=== PATIENT | female | born 1960 | race Caucasian/White ===

== ENCOUNTER 2022-07-29 15:30 | Outpatient (OUT) | payer BC, SELFPAY ==
--- NOTE | 2022-07-29 15:51 | XR_ITS ---
The [address] [address] Patient Name: PAOLA MARIANO MRN: [id number] date: 1960 Sex: F Assigned Patient Location: Current Patient Location: Accession/Order Number: [id number] Exam Date: 07/29/2022 15:51 Report Date: 07/30/2022 07:13 At the request of: JEREMIAS HICKMAN Procedure: XR foot LT min 3V PROCEDURE: XR foot LT min 3V HISTORY: LEFT FOOT PAIN ; dorsal foot wound COMPARISON: XR foot left 04/18/2022 FINDINGS: BONES:Mechanical fusion of the medial midfoot extending from the talus to the mid first metatarsal via dorsal plate and screws. Mechanical fusion of the second and third tarsal metatarsal joints via single lag screws. Prior osteotomy and repair of distal first metatarsal. Anterior calcaneal osteotomy and wedge placement. Remote fracture and healing of fifth metatarsal. No evidence of hardware fracture or loosening. SOFT TISSUES:Dorsal and medial soft tissue swelling. EFFUSION:None visible. OTHER: Negative. IMPRESSION: 1. Stable surgical changes without evidence of hardware failure or change in alignment. 2. Dorsal medial soft tissue swelling; stable to slightly increased. Electronically authenticated by: ION SPRING Date: 07/30/2022 07:13
== END 2022-07-29 15:31 ==
LOC: WC 15:30
PROVIDERS: PCP Podiatrist Foot & Ankle Surgery; Visit Provider Podiatrist Foot & Ankle Surgery
DX: M79.672 Pain in left foot (principal); L03.116 Cellulitis of left lower limb; B96.89 Other specified bacterial agents as the cause of diseases classified elsewhere; M24.572 Contracture, left ankle; M19.072 Primary osteoarthritis, left ankle and foot; L76.32 Postprocedural hematoma of skin and subcutaneous tissue following other procedure; M20.12 Hallux valgus (acquired), left foot; T81.30XD Disruption of wound, unspecified, subsequent encounter
CPT/HCPCS: 73630; 99212; G0463

== ENCOUNTER 2022-08-19 08:10 | Outpatient (OUT) | payer BC, SELFPAY ==
--- NOTE | 2022-08-19 08:18 | CT_ITS ---
The [address] [address] Patient Name: PAOLA MARIANO MRN: [id number] date: 1960 Sex: F Assigned Patient Location: CT Current Patient Location: Accession/Order Number: [id number] Exam Date: 08/19/2022 08:25 Report Date: 08/19/2022 20:57 At the request of: JEREMIAS HICKMAN Procedure: CT foot LT wo con PROCEDURE: CT foot LT wo con COMPARISON: 07/29/2022 HISTORY: Left foot fusion, delayed wound healing FINDINGS: BONES:No acute fracture, dislocation or mechanical failure is observed. Fusion of the medial midfoot forefoot with a dorsal plate and multiple screws extending from the navicular across the medial cuneiform to the first metatarsal. Incomplete bony bridging across the fusion hardware. Fusion of the second and third tarsometatarsal joints with a single screw from distal to medial Shave osteotomy medial head of the first metatarsal with a single screw placement. Wedge spacers identified at the first tarsometatarsal joint anterior calcaneus. Moderate to severe diffuse degenerative changes. Contour deformity head of the fifth metatarsal likely representing remote healed fracture. Subacute/chronic for intra-articular fracture medial base of the fourth proximal phalanx SOFT TISSUES:Moderate diffuse soft tissue swelling EFFUSION:None visible. OTHER: Negative. IMPRESSION: Stable degenerative and postsurgical changes Electronically authenticated by: CHANNING BELTRAN Date: 08/19/2022 20:57
== END 2022-08-19 08:11 | disposition home or self-care (01) ==
LOC: CT 08:14
PROVIDERS: PCP Family Medicine; Visit Provider Podiatrist Foot & Ankle Surgery
DX: T81.89XA Other complications of procedures, not elsewhere classified, initial encounter (principal); Z98.1 Arthrodesis status
CPT/HCPCS: 73700

== ENCOUNTER 2022-08-19 08:49 | Outpatient (OUT) | payer BC, SELFPAY | END 2022-08-19 08:50 | disposition home or self-care (01) | LOC: WC 08:49 | PROVIDERS: PCP Family Medicine; Visit Provider Podiatrist Foot & Ankle Surgery | DX: T81.89XA Other complications of procedures, not elsewhere classified, initial encounter (principal); Z98.1 Arthrodesis status; M96.0 Pseudarthrosis after fusion or arthrodesis; T81.30XD Disruption of wound, unspecified, subsequent encounter; M19.072 Primary osteoarthritis, left ankle and foot; L03.116 Cellulitis of left lower limb; B96.89 Other specified bacterial agents as the cause of diseases classified elsewhere; M24.572 Contracture, left ankle; M20.12 Hallux valgus (acquired), left foot; L76.32 Postprocedural hematoma of skin and subcutaneous tissue following other procedure | CPT/HCPCS: 73700; A6213; G0463 ==

== ENCOUNTER 2022-09-16 11:19 | Outpatient (OUT) | payer BC, SELFPAY ==
--- NOTE | 2022-09-16 11:38 | XR_ITS ---
The [address] [address] Patient Name: PAOLA MARIANO MRN: [id number] date: 1960 Sex: F Assigned Patient Location: Current Patient Location: Accession/Order Number: [id number] Exam Date: 09/16/2022 11:38 Report Date: 09/16/2022 15:01 At the request of: JEREMIAS HICKMAN Procedure: XR foot LT min 3V EXAM: XR foot LT min 3V HISTORY: LEFT FOOT PAIN COMPARISON: 07/29/2022. TECHNIQUE: 3 views left foot. FINDINGS: There appears to be a subacute partially healing left fourth proximal phalanx base fracture medially. Stable alignment. No other acute fracture or dislocation left foot. Old chronic healed deformity of the fifth metatarsal and the second and third proximal phalanges. Prior extensive internal fixation of the left midfoot including Lisfranc regions and old healed first metatarsal osteotomy with internal fixation screw. Calcaneal osteotomy and internal wedge. Residual soft tissue swelling and edema over the dorsum of the left foot is again seen to slightly increased. XR/XR foot LT min 3V IMPRESSION: Soft tissue swelling and edema without acute bony process. Postoperative changes as detailed. Healing subacute fracture of the fourth proximal phalanx base. Electronically authenticated by: EZIO FAM Date: 09/16/2022 15:01
== END 2022-09-16 11:20 | disposition home or self-care (01) ==
LOC: WC 11:19
PROVIDERS: PCP Family Medicine; Visit Provider Podiatrist Foot & Ankle Surgery
DX: M79.672 Pain in left foot (principal); T81.30XD Disruption of wound, unspecified, subsequent encounter
CPT/HCPCS: 73630; G0463

== ENCOUNTER 2022-09-26 10:54 | Outpatient (OUT) | payer BC, SELFPAY | END 2022-09-26 10:55 | disposition home or self-care (01) | LOC: WC 10:54 | PROVIDERS: PCP Family Medicine; Visit Provider Podiatrist Foot & Ankle Surgery | DX: T81.30XD Disruption of wound, unspecified, subsequent encounter (principal) | CPT/HCPCS: A6213; G0463 ==

== ENCOUNTER 2022-10-03 12:32 | Outpatient (OUT) | payer BC, SELFPAY ==
--- NOTE | 2022-10-03 13:31 | PM.PRESUREVA ---
History of Present Illness History of Present Illness Chief complaint: painful hardware and surgical dehiscence left Narrative: Patient presents for preadmission testing. Please see HPI from Dr. Lopez dated 09/26/2022. Review of Systems ROS Narrative REVIEW OF SYSTEMS: Negative except as stated in HPI, ten or more systems reviewed. Constitutional: No fever , chills, weakness ENT: No sore throat or epistaxis Cardiovascular: No edema, chest pain, palpitations, or activity intolerance Respiratory: No shortness of breath, cough, or wheezing Gastrointestinal: No abdominal pain, constipation, diarrhea, or vomiting Genitourinary: No dysuria or hematuria Neurological: No numbness, tingling, weakness, or headache Psychiatric: No mood changes PFSH PFS Medical History (Updated 10/03/22 @ 13:32 by Leslee Lopez NP) Surgical History (Updated 10/03/22 @ 13:29 by Leslee Lopez NP) (04/24/22) (02/10/22) Family History (Updated 10/03/22 @ 13:22 by Leslee Lopez NP) Other Bladder cancer Family history of diabetes mellitus Family history of heart disease Family history of hypertension Family history of myocardial infarction Renal failure Social History (Updated 10/03/22 @ 12:52 by Leslee Lopez NP) Within the past year, how often did you have a drink containing alcohol: monthly or less Smoking status: Never smoker Non-prescribed substance use: denies use 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 Highest level of school completed/degree received: Master's degree Meds Home Medications and Allergies Home Medications Medication Instructions Recorded Confirmed Type alendronate 70 mg tablet 70 mg PO QWEEK 10/03/22 10/03/22 History ascorbic acid (vitamin C) 1,000 mg 1 g PO DAILY 10/03/22 10/03/22 History capsule calcium citrate 315 mg 1 tab PO DAILY 10/03/22 10/03/22 History calcium-vitamin D3 6.25 mcg (250 unit) tablet (Citracal + Vitamin D Maximum) celecoxib 200 mg capsule (Celebrex) 200 mg PO BID 10/03/22 10/03/22 History cholecalciferol (vitamin D3) 50 2,000 unit PO DAILY 10/03/22 10/03/22 History mcg (2,000 unit) capsule estradiol 0.01% (0.1 mg/gram) 1 appful vaginal .twice weekly 10/03/22 10/03/22 History vaginal cream gabapentin 400 mg capsule 400 mg PO BID 10/03/22 10/03/22 History glucosamine sulfate 750 mg tablet 750 mg PO DAILY 10/03/22 10/03/22 History (Marielle) methenamine hippurate 1 gram 1 g PO BID 10/03/22 10/03/22 History tablet (Hiprex) pantoprazole 40 mg tablet,delayed 40 mg PO DAILY 10/03/22 10/03/22 History release semaglutide 1 mg/dose (2 mg/1.5 1 mg subcut QWEEK 10/03/22 10/03/22 History mL) subcutaneous pen injector (Ozempic) tizanidine 4 mg capsule 8 mg PO QPM 10/03/22 10/03/22 History tramadol 50 mg tablet 50 mg PO BID 10/03/22 10/03/22 History Allergies Allergy/AdvReac Type Severity Reaction Status Date / Time morphine Allergy Hives Verified 10/03/22 12:50 vancomycin Allergy Hives Verified 10/03/22 12:50 Exam Narrative Exam Narrative: Constitutional: Awake, alert, comfortable, well-appearing, nontoxic, interactive, vital signs as charted Head: Normocephalic, atraumatic Neck: Supple, normal appearance, normal range of motion, no meningeal signs, no lymphadenopathy Respiratory: No respiratory distress, breath sounds clear Cardiovascular: Regular rate and rhythm, strong and regular heart tones Psychiatric: Oriented ?3, normal affect Assessment and Plan Assessment and Plan (1) Foot pain: (2) Painful orthopaedic hardware: (3) Surgical wound dehiscence: Plan Left foot hardware removal, revision of mid foot fusion, bone grafting and application of wound VAC scheduled with Dr. Lopez 10/06/2022.
== END 2022-10-03 12:33 | disposition home or self-care (01) ==
LOC: PST 12:33
PROVIDERS: PCP Family Medicine; Visit Provider Podiatrist Foot & Ankle Surgery
DX: Z01.818 Encounter for other preprocedural examination (principal); T84.84XA Pain due to internal orthopedic prosthetic devices, implants and grafts, initial encounter; T81.31XA Disruption of external operation (surgical) wound, not elsewhere classified, initial encounter
CPT/HCPCS: G0463

== ENCOUNTER 2022-10-06 07:39 | Day surgery (SDC) | payer BC, SELFPAY ==
[2022-10-03 13:07] VITALS: BP 114/75; PULSE 79; RESP 18; TEMP 36.5; O2SAT 99; BMI 32.3
[2022-10-06] VITALS (9 sets, daily range): BP systolic 127–152; BP diastolic 83–103; PULSE 70–82; RESP 15–19; TEMP 35.9–36.8; O2SAT 95–98; BMI 32.5
--- NOTE | 2022-10-06 | FL_ITS ---
The [address] [address] Patient Name: PAOLA MARIANO MRN: [id number] date: 1960 Sex: F Assigned Patient Location: [facility] Current Patient Location: Accession/Order Number: [id number] Exam Date: 10/06/2022 11:30 Report Date: 10/07/2022 08:47 At the request of: JEREMIAS HICKMAN Procedure: FL fluoroscopy <1hr PROCEDURE: FL fluoroscopy <1hr, XR foot LT 2V HISTORY: left foot pain COMPARISON: XR foot left 09/16/2022 FINDINGS: BONES:Multiple intraoperative spot fluoroscopic images demonstrate removal of previously seen hardware fusing the navicular-medial cuneiform-first metatarsal. Hardware fusing the second and third tarsal-metatarsal joints remains. Interval placement of 2 additional lag screws fusing the navicular-medial cuneiform and navicular-middle cuneiform bones. Stable prior wedge placement within the anterior calcaneus and medial cuneiform. SOFT TISSUES:Expected intraoperative findings. EFFUSION:None visible. OTHER: Negative. FL/FL fluoroscopy <1hr IMPRESSION: 1. Surgical revision of medial midfoot fusion. Electronically authenticated by: ION SPRING Date: 10/07/2022 08:47
--- NOTE | 2022-10-06 | XR_ITS ---
The [address] [address] Patient Name: PAOAL MARIANO MRN: [id number] date: 1960 Sex: F Assigned Patient Location: [facility] Current Patient Location: Accession/Order Number: [id number] Exam Date: 10/06/2022 11:30 Report Date: 10/07/2022 08:47 At the request of: JEREMIAS HICKMAN Procedure: XR foot LT 2V PROCEDURE: FL fluoroscopy <1hr, XR foot LT 2V HISTORY: left foot pain COMPARISON: XR foot left 09/16/2022 FINDINGS: BONES:Multiple intraoperative spot fluoroscopic images demonstrate removal of previously seen hardware fusing the navicular-medial cuneiform-first metatarsal. Hardware fusing the second and third tarsal-metatarsal joints remains. Interval placement of 2 additional lag screws fusing the navicular-medial cuneiform and navicular-middle cuneiform bones. Stable prior wedge placement within the anterior calcaneus and medial cuneiform. SOFT TISSUES:Expected intraoperative findings. EFFUSION:None visible. OTHER: Negative. XR/XR foot LT 2V IMPRESSION: 1. Surgical revision of medial midfoot fusion. Electronically authenticated by: ION SPRING Date: 10/07/2022 08:47
[2022-10-06 08:05] LABS: Glucometer 84 mg/dL (74-106)
[2022-10-06] MEDS: LACTATED RINGER'S SOLUTION 1,000 ML 50 ML IV ×2 (08:53→12:18)
[2022-10-06] MEDS: CEFAZOLIN SODIUM/DEXTROSE,ISO 2 GM/50 ML PIGGYBACK IV (10:25)
--- NOTE | 2022-10-06 11:31 | PM.ORONB ---
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 Intraoperative fluoroscopy examination. All procedures performed on left foot Intraoperative findings: partial thickness 1.5 x 2.5 cm wound over the dorsal medial midfoot. No signs of infection. 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 Bone quality overall within normal limits given patient's gender and age Procedure in detail: Patient was identified in pre op and consent was reviewed. Correct side and site were identified and marked. Pre-op antibiotics were started. Patient was brought to OR suite and place on table in a supine position. General anesthesia was administered. Tourniquet applied. Operative extremity was prepped and draped in usual sterile fashion. Formal time-out was performed and the foot/ankle were exsanguinated and tourniquet inflated. The partial thickness 1.5 x 2.5 cm wound over the dorsal medial midfoot was excised in a 3-1 ellipse then expanded proximally and distally. Then deep dissection was taken medial compared was to the extensor tendon to the great toe. Comminution sharp and blunt dissection gained access to the dorsal plate and screw construct which was fully exposed then removed with appropriate screwdriver. The plate was then removed with the aid of an osteotome. A dental pick an osteotome were used to inspect the 1st and 2nd tarsometatarsal joints which were of adequate fusion noting osseous trabeculation spanning the joint. However there is fibrous nonunion noted the medial aspect of the naviculocuneiform joint. The fibrous tissue was excised with rongeurs curettes and osteotomes then was drilled with a 2.0 mm drill bit. surgical site was irrigated with 3 L of normal saline and specimen was obtained with a clean rongeur from the naviculocuneiform joint. The joint was then packed with 2cc of sparc bone allograft and protios BMP allograft. The joint was then fixated with guidewires while holding manual reduction. A headed 4.0 mm cannulated screw was then placed over the guidewires from the navicular tuberosity and into the 2nd cuneiform/metatarsal utilizing a stab incision. a stab incision was created over the medial aspect of the midfootthen a 4.5 mm headless cannulated screw was placed from the plantar medial aspect of the 1st cuneiform across the navicular cuneiform into the navicular. Any remaining bone graft was then spackled around the fusion site. stab incisions were closed with nylon suture while the medial column incision was closed in layers limiting the amount of absorbable sutures. The majority of the incision was able to be closed in one layer however there was a full-thickness wound remaining which measured 2.5 x 1.7 cm. the tourniquet was dropped with a prompt hyperemic response. The allogenic skin substitute was placed over the wound bed and secured in place. Adaptic followed by a wound VAC which was placed at seventy-five mmHg continuous. Adequate suction was obtained. A dry sterile dressing consisting of Xeroform on the incisions followed by 4 x 4 gauze, ABDs, and Kerlix were applied. Multiple layers of cast padding were then applied to ensure all bony prominences were well-padded. A plaster posterior splint was then applied which was held in place by Ran wraps. Capillary refill time to all digits was evaluated and had appropriate response. Postoperative plan: Discharge home under family's care Post op instructions provided verbally and written prescription(s) were placed in chart NWB operative foot/ankle x_3-6_ wks Follow-up in 1 week for VAC change and skin check Implants: Medline 4.0 mm headed & 4.5 headless cannulated screws Integra bilayer Anesthesia: GETA and regional Surgeon: Ciaran Lopez Cage Tender: Seb Hay Estimated blood loss (mL): 10 Pathology: other (bone from naviculocunieform) Condition: stable Disposition: PACU Preoperative Details Reason for procedure: patient is a 62-year-old female well known to my practice who underwent medial column and subtalar joint fusion in January 2022. Her recovery was complicated by wound dehiscence which required multiple wound care modalities and eventually the wound progressed despite shortly after healing wound had recurred and patient is continued to have pain over her midfoot. CT scan obtained in July 2022 showed only partial healing at the naviculocuneiform joint. Due to her recurrent wound recommended removal of the hardware with possible revision of naviculocuneiform joint fusion, excision of wound and possible allogenic skin substitute. We reviewed the potential risks and benefits and all questions were answered to her satisfaction.
[2022-10-06] MEDS: GENTAMICIN SULFATE 1 GM POWDER TOPICAL (11:38)
--- NOTE | 2022-10-06 13:46 | XR_ITS ---
The [address] [address] Patient Name: PAOLA MARIANO MRN: [id number] date: 1960 Sex: F Assigned Patient Location: [facility] Current Patient Location: Accession/Order Number: [id number] Exam Date: 10/06/2022 13:40 Report Date: 10/07/2022 09:45 At the request of: KIEL FAUST Procedure: XR foot LT min 3V PROCEDURE: XR foot LT min 3V HISTORY: postop xr pacu COMPARISON: XR foot left 10/06/2022 12:00 PM FINDINGS: BONES:Medial midfoot hardware revision with 4 lag screws now fixating the navicular-medial cuneiform, navicular-middle cuneiform, and the second and third tarsal-metatarsal joints. Stable prior wedge placement within the medial cuneiform-first metatarsal joint space, and within the anterior calcaneus. Single screw within head of first metatarsal, unchanged. SOFT TISSUES:Expected postoperative findings. Images were obtained to cast material. EFFUSION:None visible. OTHER: Negative. XR/XR foot LT min 3V IMPRESSION: 1. Stable surgical changes compared to intraoperative images. Electronically authenticated by: ION SPRING Date: 10/07/2022 09:45
[2022-10-06 13:48] LABS: Glucometer 98 mg/dL (74-106)
== END 2022-10-06 14:21 | disposition home or self-care (01) ==
PROVIDERS: PCP Family Medicine; Visit Provider Podiatrist Foot & Ankle Surgery
PROC: (CPT 15275; principal; 2022-10-06 08:55)
DX: T84.84XA Pain due to internal orthopedic prosthetic devices, implants and grafts, initial encounter (principal); T81.31XA Disruption of external operation (surgical) wound, not elsewhere classified, initial encounter; M96.0 Pseudarthrosis after fusion or arthrodesis; Z79.899 Other long term (current) drug therapy
CPT/HCPCS: 15275; 20680; 28320; 28730; 36415; 64445; 73620; 73630; 76000; 76942; 82948; 87070; 87102; 87116; 87205; 87206; 88305; 88311; 97605; 99999; C1713; J2704; Q4104

== ENCOUNTER 2022-10-13 13:49 | Outpatient (OUT) | payer BC, SELFPAY | END 2022-10-13 13:50 | disposition home or self-care (01) | LOC: WC 13:49 | PROVIDERS: PCP Family Medicine; Visit Provider Physician Assistant | DX: T81.30XD Disruption of wound, unspecified, subsequent encounter (principal) | CPT/HCPCS: 97605 ==

== ENCOUNTER 2022-10-20 14:52 | Outpatient (OUT) | payer BC, SELFPAY | END 2022-10-20 14:53 | disposition home or self-care (01) | LOC: WC 14:52 | PROVIDERS: PCP Family Medicine; Visit Provider Physician Assistant | DX: T81.30XD Disruption of wound, unspecified, subsequent encounter (principal) | CPT/HCPCS: 97605 ==

== ENCOUNTER 2022-10-29 14:51 | Outpatient (OUT) | payer BC, SELFPAY | END 2022-10-29 14:52 | disposition home or self-care (01) | LOC: WC 14:51 | PROVIDERS: PCP Family Medicine; Visit Provider Podiatrist Foot & Ankle Surgery | DX: T81.30XD Disruption of wound, unspecified, subsequent encounter (principal) | CPT/HCPCS: 11042; 97605 ==

== ENCOUNTER 2022-11-11 14:46 | Outpatient (OUT) | payer BC, SELFPAY ==
--- NOTE | 2022-11-11 | XR_ITS ---
The [address] [address] Patient Name: PAOLA MARIANO MRN: [id number] date: 1960 Sex: F Assigned Patient Location: Current Patient Location: Accession/Order Number: [id number] Exam Date: 11/11/2022 15:47 Report Date: 11/12/2022 09:08 At the request of: JEREMIAS HICKMAN Procedure: XR foot LT min 3V PROCEDURE: XR foot LT min 3V HISTORY: LEFT FOOT PAIN COMPARISON: XR foot left 10/06/2022 FINDINGS: BONES:Prior anterior calcaneal osteotomy and wedge placement. Fusion of the navicular-cuneiform joints with stable osseous destruction/bone resorption within the navicular bone. Fusion of the second third tarsal-metatarsal joints without is of hardware fracture loosening. Wedge placement within the first tarsal-metatarsal joints. Single screw within head of first metatarsal. Evidence of prior hardware removal. SOFT TISSUES:Mild dorsal soft tissue swelling. EFFUSION:None visible. OTHER: Negative. XR/XR foot LT min 3V IMPRESSION: 1. Stable surgical changes without evidence of hardware failure or change in alignment. Electronically authenticated by: ION SPRING Date: 11/12/2022 09:08
== END 2022-11-11 14:47 | disposition home or self-care (01) ==
LOC: WC 14:46
PROVIDERS: PCP Family Medicine; Visit Provider Podiatrist Foot & Ankle Surgery
DX: M79.672 Pain in left foot (principal); T81.30XD Disruption of wound, unspecified, subsequent encounter
CPT/HCPCS: 11042; 73630

== ENCOUNTER 2022-12-03 16:02 | Outpatient (OUT) | payer BC, SELFPAY ==
--- NOTE | 2022-12-03 | XR_ITS ---
The [address] [address] Patient Name: PAOLA MARIANO MRN: [id number] date: 1960 Sex: F Assigned Patient Location: Current Patient Location: Accession/Order Number: [id number] Exam Date: 12/03/2022 15:40 Report Date: 12/04/2022 07:04 At the request of: JEREMIAS HICKMAN Procedure: XR foot LT min 3V PROCEDURE: XR foot LT min 3V HISTORY: LEFT FOOT PAIN COMPARISON: XR foot left 11/11/2022 FINDINGS: BONES:Prior midfoot fusion, wedge placement within the first tarsal-metatarsal joint and first metatarsal neck osteotomy and repair. Anterior calcaneal osteotomy and wedge placement. SOFT TISSUES:No visible soft tissue swelling. EFFUSION:None visible. OTHER: Negative. XR/XR foot LT min 3V IMPRESSION: 1. Stable surgical changes without evidence of hardware failure or change in alignment. Electronically authenticated by: ION SPRING Date: 12/04/2022 07:04
== END 2022-12-03 16:03 | disposition home or self-care (01) ==
LOC: WC 16:03
PROVIDERS: PCP Family Medicine; Visit Provider Podiatrist Foot & Ankle Surgery
DX: T81.30XD Disruption of wound, unspecified, subsequent encounter (principal); M19.072 Primary osteoarthritis, left ankle and foot; Z96.9 Presence of functional implant, unspecified; M96.0 Pseudarthrosis after fusion or arthrodesis; L03.116 Cellulitis of left lower limb; M24.572 Contracture, left ankle; M20.12 Hallux valgus (acquired), left foot; L76.32 Postprocedural hematoma of skin and subcutaneous tissue following other procedure
CPT/HCPCS: 73630; G0463

== ENCOUNTER 2022-12-24 08:58 | Outpatient (OUT) | payer BC, SELFPAY ==
--- NOTE | 2022-12-24 | XR_ITS ---
The [address] [address] Patient Name: PAOLA MARIANO MRN: [id number] date: 1960 Sex: F Assigned Patient Location: Current Patient Location: Accession/Order Number: [id number] Exam Date: 12/24/2022 09:05 Report Date: 12/24/2022 09:47 At the request of: JEREMIAS HICKMAN Procedure: XR foot LT min 3V PROCEDURE: XR foot LT min 3V COMPARISON: 12/03/2022 HISTORY: LEFT FOOT PAIN FINDINGS: BONES:No acute fracture or dislocation. Remote postsurgical changes with anterior calcaneal osteotomy and wedged spacer. Wedge spacer at the first tarsometatarsal joint. Screws across the midfoot forefoot at the second and third tarsometatarsal joints as well as the medial cuneiform and navicular with lytic changes of the navicular, unchanged. Remote osteotomy and screw placement distal diaphysis of the first metatarsal SOFT TISSUES:Negative. No visible soft tissue swelling. EFFUSION:None visible. OTHER: Negative. XR/XR foot LT min 3V IMPRESSION: Stable postsurgical and degenerative changes Electronically authenticated by: CHANNING BELTRAN Date: 12/24/2022 09:47
== END 2022-12-24 08:59 | disposition home or self-care (01) ==
LOC: WC 08:58
PROVIDERS: PCP Family Medicine; Visit Provider Podiatrist Foot & Ankle Surgery
DX: M79.672 Pain in left foot (principal); T81.30XD Disruption of wound, unspecified, subsequent encounter
CPT/HCPCS: 11042; 73630

== ENCOUNTER 2023-01-20 09:30 | Outpatient (OUT) | payer BC, SELFPAY ==
--- NOTE | 2023-01-20 | XR_ITS ---
[address] [address] Patient Name: PAOLA MARIANO MRN: [id number] date: 1960 Sex: F Assigned Patient Location: Current Patient Location: Accession/Order Number: [id number] Exam Date: 01/20/2023 09:35 Report Date: 01/21/2023 07:49 At the request of: JEREMIAS HICKMAN Procedure: XR foot LT min 3V PROCEDURE: XR foot LT min 3V HISTORY: LEFT FOOT PAIN COMPARISON: XR foot left 12/24/2022 FINDINGS: BONES:No evidence of hardware fracture loosening. No bone fracture dislocation. Evidence of prior hardware removal from first metatarsal. Moderate degenerative changes of the midfoot. SOFT TISSUES:No visible soft tissue swelling. EFFUSION:None visible. OTHER: Negative. XR/XR foot LT min 3V IMPRESSION: 1. Stable surgical changes without evidence of hardware failure or change in alignment. 2. No acute bone abnormality. Electronically authenticated by: ION SPRING Date: 01/21/2023 07:49
== END 2023-01-20 09:31 | disposition home or self-care (01) ==
LOC: WC 09:30
PROVIDERS: PCP Family Medicine; Visit Provider Podiatrist Foot & Ankle Surgery
DX: M79.672 Pain in left foot (principal); T81.30XD Disruption of wound, unspecified, subsequent encounter
CPT/HCPCS: 73630; G0463

== ENCOUNTER 2023-03-04 11:05 | Outpatient (OUT) | payer BC, SELFPAY ==
--- NOTE | 2023-03-04 | XR_ITS ---
The [address] [address] Patient Name: PALOA MARIANO MRN: [id number] date: 1960 Sex: F Assigned Patient Location: [facility] Current Patient Location: [facility] Accession/Order Number: [id number] Exam Date: 03/04/2023 11:17 Report Date: 03/04/2023 15:07 At the request of: JEREMIAS HICKMAN Procedure: XR foot LT min 3V PROCEDURE: XR foot LT min 3V HISTORY: LEFT FOOT PAIN COMPARISON: XR foot left 01/12/2023 FINDINGS: BONES:Anterior osteotomy and wedge placement within the calcaneus. Wedge placement within the first tarsal-metatarsal joint and partial fusion of the midfoot. Prior osteotomy and repair of distal first metatarsal. Changes from prior hardware placement and removal within the first metatarsal. Old, healed 5th metatarsal fracture. SOFT TISSUES:No visible soft tissue swelling. EFFUSION:None visible. OTHER: Negative. XR/XR foot LT min 3V IMPRESSION: 1. Stable surgical changes without evidence of hardware failure or change in alignment. Electronically authenticated by: ION SPRING Date: 03/04/2023 15:07
--- OUTSIDE RECORDS SUMMARY | 2023-03-04 11:09 | XMS_ITS | CCD ---
Author Name Unknown Address [address] [facility] [facility] [address] [place] [address] Organization [facility] Care Team Providers Care Cash Processor Name Role Phone Ion Mccabe Primary Care Provider Bairon Garcia Unavailable Veronica Anguiano Unavailable Ion Mccabe Primary Care Provider Laly Waller Unavailable Ion Mccabe Primary Care Provider MAY RICHARDSON Attending Unavailable ION MCCABE Referring Unavailabl e ION MCCABE Primary Care Unavailabl e MAY RICHARDSON Referring Unavailable ION MCCABE Primary Care Unavailabl e MAY RICHARDSON Attending Unavailable MAY RICHARDSON Referring Unavailable ION MCCABE Primary Care Unavailabl e JEREMIAS HICKMAN Admitting Unavailable ELIOT, DR LEMON Primary Care Unavailable JEREMIAS HICKMAN Attending Unavailable CLEMENTINE, DR ION Scales Consulting Unavailable JEREMIAS HICKMAN Consulting Unavailable JEREMIAS HICKMAN Admitting Unavailable ELIOT, DR LEMON Primary Care Unavailable JEREMIAS HICKMAN Attending Unavailable ELIOT, DR LEMON Primary Care Unavailable JEREMIAS HICKMAN Admitting Unavailable JEREMIAS HICKMAN Attending Unavailable JEREMIAS HICKMAN Admitting Unavailable JEREMIAS HICKMAN Consulting Unavailable ELIOT, DR LEMON Primary Care Unavailable JEREMIAS HICKMAN Attending Unavailable JEREMIAS HICKMAN Admitting Unavailable CLEMENTINE, DR ION Scales Consulting Unavailable JEREMIAS HICKMAN Attending Unavailable JEREMIAS HICKMAN Consulting Unavailable ELIOT, DR LEMON Primary Care Unavailable CHICO DAVILA Attending Unavailable CHICO DAVILA Admitting Unavailable [facility], DR CHANNING Argueta Consulting Unavailable CHICO DAVILA Consulting Unavailable JEREMIAS HICKMAN Admitting Unavailable JEREMIAS HICKMAN Attending Unavailable ELIOT, DR LEMON Primary Care Unavailable ELIOT, DR LEMON Primary Care Unavailable HIGHLANDER, PETER D Admitting Unavailable HIGHLANDER, PETER Ney Attending Unavailable HIGHLANDER, PETER D Admitting Unavailable ELIOT, DR LEMON Primary Care Unavailable HIGHLANDER, PETER D Attending Unavailable HIGHLANDER, PETER D Admitting Unavailable ELIOT, DR LEMON Primary Care Unavailable HIGHLANDER, PETER D Attending Unavailable HIGHLANDER, PETER D Admitting Unavailable ELIOT, DR LEMON Primary Care Unavailable HIGHLANDER, JEREMIAS D Attending Unavailable ELIOT, DR LEMON Primary Care Unavailable HIGHLANDER, PETER D Admitting Unavailable HIGHLANDER, PETER D Attending Unavailable HIGHLANDER, PETER D Admitting Unavailable HIGHLANDER, PETER D Consulting Unavailable ELIOT, DR LEMON Primary Care Unavailable HIGHLANDER, PETER D Attending Unavailable JOANIE COTE Consulting Unavailable LISANDRO ., ALDA OMYER Consulting Unavailable COREY CASAREZ Consulting Unavailable ELIOT, DR LEMON Primary Care Unavailable IVANA ., DR ELIZABETH Admitting Unavailable HAY ., DR ELIZABETH Attending Unavailable SIMON ., MR WASHINGTON Consulting Unavailable MANASA, JEREMIAS Consulting Unavailable HIGHLANDER, PETER D Admitting Unavailable HIGHLANDER, PETER D Consulting Unavailable ELIOT, DR LEMON Primary Care Unavailable HIGHLANDER, PETER D Attending Unavailable ELIOT, DR LEMON Primary Care Unavailable HIGHLANDER, PETER D Attending Unavailable HIGHLANDER, PETER D Admitting Unavailable ALPESHER, DR ION Scales Consulting Unavailable HIGHLANDER, JEREMIAS Brewster Consulting Unavailable LISANDRO ., ALDA MOYER Consulting Unavailable ALYSSA SOSA Consulting Unava LINO Jones Consulting Unavailable HIGHLANDER, PETER D Attending Unavailable ELIOT, DR LEMON Primary Care Unavailable HIGHLANDER, PETER D Admitting Unavailable YESSI NOYOLA Consulting Unavailable Eliot, Ion Primary Care Unavailable Veronica Anguiano Attending Unavailable Veronica Anguiano Admitting Unavailable VERONICA ANGUIANO Attending Unavailable VERONICA ANGUIANO Admitting Unavailable Ion Mccabe Primary Care Unavailable SHA SCOTT Admitting Unavailable Ion Mccabe Primary Care Unavailable SHA SCOTT Attending Unavailable Allergies Allergy Classification Reported Allergen(s) Allergy Type Date of Onset Reaction(s) Facility (20 sources) Morphine; Translations: [MORPHINE] Drug Allergy 02-25-2002 Unknown [facility] (20 sources) Vancomycin; Translations: [VANCOMYCIN] Drug Allergy 05-22-2021 Itching [facility] (2 sources) Morphine Drug Allergy [facility] (2 sources) Vancomycin Drug Allergy [facility] (1 source) Morphine Drug Allergy 09-21-2020 [facility] Repository Medications Current Medications Medication Drug Class(es) Dates Sig (Normalized) Sig (Original) 0.5 ML tirzepatide 10 MG/ML Auto-Injector [Mounjaro] (2 sources) Start: 11-19-2021 Mounjaro 5 MG/0.5ML 1 injector Subcutaneous weekly for 28 days Oct, Active Start: 11-19-2021 Mounjaro 5 MG/ 0.5ML as directed Subcutaneous weekly for 28 days Oct, Active 0.5 ML tirzepatide 15 MG/ML Auto-Injector [Mounjaro] (2 sources) Start: 11-19-2021 Mounjaro 7.5 MG/0.5ML as directed Subcutaneous weekly for 28 days Oct, Active 0.5 ML tirzepatide 5 MG/ML Auto-Injector [Mounjaro] (1 source) Start: 11-19-2021 Mounjaro 2.5 MG/0.5ML as directed Subcutaneous weekly for 28 days Oct, Active 3 ML semaglutide 1.34 MG/ML Pen Injector [Ozempic] (2 sources) Start: 04-23-2022 inject 1 mg by subcutaneous injection every week Ozempic (1 MG/DOSE) 4 MG/3ML 1 mg as directed Subcutaneous weekly for 30 days Apr, Active 3 ML semaglutide 2.68 MG/ML Pen Injector [Ozempic] (3 sources) Start: 06-19-2022 inject 1 mg by subcutaneous injection every week Ozempic (2 MG/DOSE) 8 MG/3ML 1 mg or 36 clicks Subcutaneous weekly for 60 days May, Active alendronic acid 70 mg oral tablet (13 sources) Bisphosphonate take 1 tablet by mouth once daily Alendronate Sodium 70 MG 1 tablet 30 minutes before the first food, beverage or medicine of the day with plain water Orally Active Comment on above: Take by mouth. cholecalciferol 0.05 mg oral tablet (7 sources) Vitamin D take 1 tablet by mouth every twenty-four hours Vitamin D 50 MCG (2000 UT) 1 tablet Orally Once a day Active take 1 tablet by mouth once tony y cholecalciferol (VITAMIN D-3) 50 mcg (2,000 unit) tablet Take 2,000 Units by mouth once daily. 0 Active Comment on above: Take 2,000 Units by mouth once daily. Citracal Plus - (5 sources) Citracal Plus - as directed Orally Active diclofenac sodium 0.01 mg/mg topical gel (2 sources) Nonsteroidal Anti-inflammatory Drug Start: 04-02-2018 Diclofenac Sodium 1 % apply 1-2 grams to affected area twice daily Transdermal Twice a day Mar, Active Marielle (5 sources) Marielle Active Enoxaparin (6 sources) Low Molecular Weight Heparin Lovenox Active estradiol 0.1 mg/ml vaginal cream (20 sources) Estrogen Estrace 0.1 MG/G M as directed Vaginal 2 x weekly Active estradiol (ESTRA CE) 0.01 % (0.1 mg/gram) vaginal cream Estrace 0.1 MG/GM as directed Vaginal 2 x weekly Active 0 Active Estrace 0.1 MG/G M Vaginal Active Comment on above: Estrace 0.1 MG/GM as directed Vaginal 2 x weekly Active Memantine (2 sources) G-xzdtik-Y-aspartat e Receptor Antagonist Memantine HCl Active methocarbamol 750 mg oral tablet (6 sources) Muscle Relaxant Start: 2 End: 2 take 1 tablet by mouth twice daily as needed for pain methocarbamol (ROBAXIN-750) 750 mg tablet Take 1 tablet by mouth twice daily as needed (pain, muscle spasm) for up to 14 days. 28 tablet 0 07/04/2021 07/18/2021 Active Start: 05-20-2021 End: 06-19-2021 take 1 tablet by mouth three times daily as needed methocarbamol (ROBAXIN-750) 750 mg tablet Take 1 tablet by mouth three times daily as needed. 90 tablet 0 05/20/2021 06/19/2021 Active Comment on above: Take 1 tablet by libby th three times daily as needed. Take 1 tablet by libby th twice daily as needed (pain, muscle spasm) for up to 14 days. Name (9 sources) Name Marielle for arthritis Active oxaprozin 600 mg oral tablet (2 sources) Nonsteroidal Anti-inflammatory Drug Daypro 600 MG Orally Active oxyCODONE hydrochloride 5 mg oral tablet (3 sources) Opioid Agonist Start: 05-31-19 End: 06-13-19 take 1 tablet by mouth every six hours as needed oxyCODONE IR (ROXICODONE) 5 mg immediate release tablet Indications: S/P lumbar fusion Take 1 tablet by mouth every 6 hours as needed for up to 7 days. 28 tablet 0 2021 06/12/2021 Active Comment on above: Take 1 tablet by libby every 6 hours as needed for up to 7 days. Semaglutide Sodium 1.8 mg/ 0.5 mL 0.5 mL (1 source) Start: 12-10-19 Semaglutide Sodium 1.8 mg/ 0.5 mL 0.5 mL 0.5 mL Injection Once for 7 days Nov, Active Semaglutide Sodium 2.268 mg/ 0.63 mL 0.63 mL (1 source) Start: 01-30-20 Semaglutide Sodium 2.268 mg/ 0.63 mL 0.63 mL 0.63 mL Injection Once a week for 28 days Jan, Active tiZANidine 4 mg oral tablet (20 sources) Central alpha-2 Adrenergic Agonist take 2 tablets by mouth at bedtime tiZANidine HCl 4 MG 2 tablets Orally at bedtime Active traMADol hydrochloride 50 mg oral tablet (20 sources) Opioid Agonist End: 05-25-19 take 1 tablet by mouth every six hours traMADol HCl 50 MG 1 tablet as needed Orally every 6 hrs Active Comment on above: Take 50 mg by mouth every 6 hours as needed. Vitamin C 1000 MG (5 sources) take 1 tablet by mouth once daily Vitamin C 1000 MG 1 tablet Orally Once a day Active Completed/Discontinued Medications Medication Drug Class(es) Dates Sig (Normalized) Sig (Original) acetaminophen 500 mg oral tablet (9 sources) Start: 05-24-2021 take 2 tablets by mouth every six hours as needed acetaminophen (TYLENOL) 500 mg tablet Take 2 tablets by mouth every 6 hours as needed for pain. 60 tablet 0 05/24/2021 Active End: 05-24-2021 acetaminophen (TYLENOL) 325 mg cap Take by mouth as needed. 0 05/24/2021 Discontinued Comment on above: Take by mouth as nee ded. Take 2 tablets by mo ut every 6 hours as needed for pain. ascorbic acid 1000 mg oral tablet (2 sources) Vitamin C ascorbic acid (VITAMIN C ORAL) Take by mouth. 1000mg 0 Active Comment on above: Take by mouth. 1000m g calcium citrate/vitamin D3 (CITRACAL + D ORAL) (2 sources) calcium citrate/vitamin D3 (CITRACAL + D ORAL) Take by mouth. 0 Active Comment on above: Take by mouth. celecoxib 200 mg oral capsule (20 sources) Nonsteroidal Anti-inflammatory Drug Start: 1 End: 2 take 2 capsules by mouth every twelve hours celecoxib (CELEBREX) 200 mg capsule Take 2 capsules by mouth q 12 HR. 0 05/24/2020 05/24/2021 Discontinued take 1 capsule by [facility] every twelve hours CeleBREX 200 MG 1 capsule with food Oral ly Twice a day Active celecoxib (CELEB ALEXANDRIA) 200 mg capsule Take by mouth q 12 HR. 0 Active CeleBREX Active Comment on above: Take 2 capsules by m [facility] q 12 HR. Take by mouth q 12 H R. chlordiazePOXIDE hydrochloride 5 mg / clidinium bromide 2.5 mg oral capsule (18 sources) Anticholinergic, Benzodiazepine Start: 01-04-2019 End: 05-24-2021 LIBRAX, WITH CLINIDIUM, 5-2.5 mg per capsule three times daily with meals. 0 01/04/2019 05/24/2021 Discontinued take 1 capsule by [facility] every twelve hours chlordiazePOXIDE-Clidinium 5-2.5 MG 1 ca psule before meals Orally bid Active chlordiazePOXIDE -Clidinium 5-2.5 MG 1 capsule before meals Orally bid Active Comment on above: three times daily wi th meals. docusate sodium 100 mg oral capsule (5 sources) Start: 2 End: 2 take 1 capsule by mouth twice daily docusate sodium (COLACE) 100 mg capsule Take 1 capsule by mouth twice daily. 14 capsule 0 05/24/2021 10/24/2021 Discontinued Comment on above: Take 1 capsule by [facility] twice daily. gabapentin 400 mg oral capsule (20 sources) Anti-epileptic Agent Start: 9 take 1 capsule by mouth twice daily, then take 2 capsules by mouth once daily gabapentin (NEURONTIN) 400 mg capsule Take 400 mg by mouth twice daily. Taking 800mg 2x daily 0 11/05/2018 Active Comment on above: Take 400 mg by mouth twice daily. Taking 800mg 2x daily Glucosamine (2 sources) glucosamine sulf ate (MARIELLE ORAL) Take by mouth. 0 Active Comment on above: Take by mouth. Hyoscyamine (2 sources) Start: 8 Hyoscyamine Oct, Not-Taking methenamine hippurate 1000 mg oral tablet (20 sources) Start: 1 take 1 tablet by mouth twice daily Methenamine Hippurate (HIPREX) 1 gram tablet Take 1 g by mouth twice daily. 0 07/31/2020 Active take 1 tablet by libby th every twelve hours Methenamine Hippurate 1 GM 1 tablet Oral ly Twice a day Active Comment on above: Take 1 g by mouth tw ice daily. pantoprazole 40 mg delayed release oral tablet (20 sources) Proton Pump Inhibitor Start: 01-04-[address] (PROTONIX) 40 mg tablet once daily. 0 01/04/2019 Active Comment on above: once daily. 0.25 mg, 0.5 mg dose 1.5 ml semaglutide 1.34 mg/ml pen injector (9 sources) Start: 03-11-2022 semaglutide (OZEMPIC) 0.25 mg or 0.5 mg(2 mg/1.5 mL) pen Inject subcutaneously. 0 03/11/2022 Active Ozempic (0.25 or 0.5 MG/DOSE) 2 MG/1.5ML 0.25 mg x 4 weeks, if tolerated, increase to 0.5 mg weekly Subcutaneous Weekly for 30 day(s) Active Comment on above: Inject subcutaneousl y. Sulfamethoxazole / Trimethoprim (19 sources) Dihydrofolate Reductase Inhibitor Antibacterial, Sulfonamide Antimicrobial take 1 tablet by mouth once daily as needed Bactrim 400-80 MG 1 tablet Orally prn Once a day Active sulfamethoxazole /trimethoprim (BACTRIM ORAL) Take by mouth as directed. 0 Active sulfamethoxazole /trimethoprim (BACTRIM ORAL) Take by mouth as directed. 0 Suspended Bactrim Active Comment on above: Take by mouth as dir ected. Suprep Bowel Prep . (2 sources) Start: 03-28-2015 Suprep Bowel Prep . as directed Orally for 1 dose(s) Mar, Not-Taking Triamcinolone (20 sources) Corticosteroid Start: 08-10-2019 Kenalog -40 mg Jul, 40 mg Start: 03-23-2019 Kenalog -40 mg Feb, 40 mg Start: 11-16-2018 Kenalog -40 mg Oct, 40 mg Start: 07-27-2018 Kenalog -40 mg Jul, 40 mg Start: 07-27-2018 KENALOG - 10 m g Jul, 40 mg Start: 03-31-2018 Kenalog -40 mg Mar, 40 mg Start: 11-17-2017 Kenalog -40 mg Oct, 40 mg Problems Active Problems Problem Classification Problem Date Documented Da te Episodic/Chronic Abdominal pain (20 sources) Abdominal pain; Translations: [Unspecified abdominal pain] Episodic Acquired foot deformities (18 sources) Hallux valgus; Translations: [Hallux valgus (acquired), right foot] Onset: 8 10-19-2017 Chronic Acquired foot deformities (1 source) Hallux valgus (acquired), left foot; Translations: [HALLUX VALGUS ACQUIRED LEFT FOOT] Onset: 3 Chronic Bacterial infection; unspecified site (1 source) Other specified bacterial agents as the cause of diseases classified elsewhere; Translations: [OTH SPEC BACTERIAL DZ CLASS ELSW] Onset: 3 Episodic Complications of surgical procedures or medical care (12 sources) Disruption of wound, unspecified, subsequent encounter; Translations: [Postprocedural hematoma of skin and subcutaneous tissue following other procedure] Onset: 3 Episodic Disorders of lipid metabolism (20 sources) Hypercholesterolemia; Translations: [Pure hypercholesterolemia, unspecified] Chronic Diverticulosis and diverticulitis (20 sources) Diverticulosis of sigmoid colon; Translations: [Diverticulosis of large intestine without perforation or abscess without bleeding] Chronic Esophageal disorders (20 sources) Gastroesophageal reflux disease; Translations: [Gastro-esophageal reflux disease without esophagitis] Chronic Essential hypertension (1 source) Essential (primary) hypertension; Translations: [ESSENTIAL PRIMARY HYPERTENSION] Onset: 3 Chronic Gangrene (1 source) Gangrene, not elsewhere classified; Translations: [GANGRENE NOT ELSEWHERE CLASSIFIED] Onset: 3 Episodic Mood disorders (20 sources) Major depression, single episode; Translations: [Major depressive disorder, single episode, unspecified] Chronic Osteoarthritis (20 sources) Osteoarthritis; Translations: [Osteoarthrosis, unspecified whether generalized or localized, lower leg] Onset: 7 07-14-2007 Chronic Other acquired deformities (1 source) Contracture, left ankle; Translations: [CONTRACTURE LEFT ANKLE] Onset: 3 Chronic Other acquired deformities (2 sources) Lumbar spondylolisthesis; Translations: [Spondylolisthesis, lumbar region] Episodic Other aftercare (1 source) Other long term care administrator (current) drug therapy; Translations: [OTH CORRECTION CURRENT DRUG THERAPY] Onset: 3 Episodic Other connective tissue disease (9 sources) History of total knee arthroplasty; Translations: [Presence of artificial knee joint, bilateral] Onset: 6 02-06-2016 Chronic Other connective tissue disease (1 source) Presence of artificial knee joint, bilateral; Translations: [PRESENCE ARTIFICIAL KNEE JNT BILAT] Onset: 3 Chronic Other connective tissue disease (20 sources) Nontraumatic complete rupture of rotator cuff of right shoulder; Translations: [Complete rotator cuff tear or rupture of right shoulder, not specified as traumatic] Episodic Other endocrine disorders (9 sources) Mass of left adrenal gland; Translations: [Other specified disorders of adrenal gland] Onset: 3 03-10-2012 Chronic Other gastrointestinal disorders (9 sources) Irritable bowel syndrome; Translations: [Irritable bowel syndrome without diarrhea] Onset: 2 05-14-2021 Chronic Other gastrointestinal disorders (20 sources) Diarrhea; Translations: [Diarrhea, unspecified] Episodic Other nervous system disorders (20 sources) Carpal tunnel syndrome of right wrist; Translations: [Carpal tunnel syndrome, right upper limb] Chronic Other nervous system disorders (20 sources) Carpal tunnel syndrome of left wrist; Translations: [Carpal tunnel syndrome, left upper limb] Chronic Other nervous system disorders (20 sources) Chronic pain; Translations: [Other chronic pain] Chronic Other nervous system disorders (2 sources) Other chronic pain Onset: 1 Resolved: 1 Chronic Other nutritional; endocrine; and metabolic disorders (9 sources) Body mass index 30+ - obesity; Translations: [Obesity, unspecified] Onset: 2 05-14-2021 Chronic Other nutritional; endocrine; and metabolic disorders (20 sources) Obese class II; Translations: [Obesity, unspecified] Onset: 2 05-16-2021 Chronic Other nutritional; endocrine; and metabolic disorders (17 sources) Obesity; Translations: [Obesity, unspecified] Chronic Other nutritional; endocrine; and metabolic disorders (17 sources) Body mass index 40+ - severely obese; Translations: [Body mass index (BMI) 40.0-44.9, adult] Chronic Other nutritional; endocrine; and metabolic disorders (7 sources) Obesity, unspecified Onset: 2 Resolved: 2 Chronic Other nutritional; endocrine; and metabolic disorders (6 sources) Body mass index (BMI) 35.0-35.9, adult Onset: 2 Resolved: 2 Chronic Residual codes; unclassified (2 sources) Postoperative state; Translations: [Other specified postprocedural states] Episodic Skin and subcutaneous tissue infections (4 sources) Cellulitis of left lower limb; Translations: [CELLULITIS OF LEFT LOWER LIMB] Onset: 3 Episodic Spondylosis; intervertebral disc disorders; other back problems (20 sources) Lumbosacral spondylosis without myelopathy; Translations: [Spondylosis without myelopathy or radiculopathy, lumbosacral region] Onset: 1 Resolved: 1 Chronic Spondylosis; intervertebral disc disorders; other back problems (13 sources) Spinal stenosis of lumbar region; Translations: [Spinal stenosis, lumbar region with neurogenic claudication] Onset: 3 Episodic Unclassified (1 source) Established Patient Onset: 2 Unclassified (1 source) PERSONAL HISTORY OF COVID-19; Translations: [PERSONAL HISTORY OF COVID-19] Onset: 3 Unclassified (1 source) CONTACT W/AND (SUSP) EXPOS COVID-19; Translations: [CONTACT W/AND (SUSP) EXPOS COVID-19] Onset: 2 Unclassified (1 source) Dietary counseling and surveillance; Translations: [Dietary counseling and surveillance] Onset: 3 Past or Other Problems Problem Classification Problem Date Documented Date Episodic/Chronic Abdominal hernia (9 sources) Lumbar hernia; Translations: [Other specified abdominal hernia without obstruction or gangrene] Onset: 07-28-2013 07-28-2013 Episodic Acquired foot deformities (2 sources) Valgus deformity, not elsewhere classified, left ankle; Translations: [Varus deformity, not elsewhere classified, left ankle] Onset: 02-27-2022 Episodic Genitourinary symptoms and ill-defined conditions (10 sources) Microscopic hematuria; Translations: [Other microscopic hematuria] Onset: 10-07-2008 10-07-2008 Episodic Other and unspecified benign neoplasm (9 sources) Adrenal adenoma; Translations: [Benign neoplasm of unspecified adrenal gland] Onset: 03-03-2012 03-03-2012 Episodic Other connective tissue disease (9 sources) Triggering of digit; Translations: [Trigger finger, right middle finger] Onset: 08-12-2010 08-12-2010 Episodic Other connective tissue disease (9 sources) Pain in limb; Translations: [Pain in unspecified limb] Onset: 08-13-2010 08-13-2010 Episodic Other connective tissue disease (9 sources) Metatarsalgia of right foot; Translations: [Metatarsalgia, right foot] Onset: 10-19-2017 10-19-2017 Episodic Other connective tissue disease (9 sources) Rotator cuff arthropathy of right shoulder; Translations: [Unspecified rotator cuff tear or rupture of right shoulder, not specified as traumatic] Onset: 01-27-2019 01-27-2019 Episodic Other connective tissue disease (9 sources) Right rotator cuff syndrome; Translations: [Unspecified rotator cuff tear or rupture of right shoulder, not specified as traumatic] Onset: 01-27-2019 01-27-2019 Episodic Other connective tissue disease (19 sources) History of lumbar fusion; Translations: [Arthrodesis status] Onset: 05-23-2021 05-24-2021 Episodic Other connective tissue disease (5 sources) Pain in left foot; Translations: [PAIN IN LEFT FOOT] Onset: 12-07-2021 Episodic Other connective tissue disease (4 sources) Pain in left lower leg; Translations: [PAIN IN LEFT LOWER LEG] Onset: 02-17-2022 Episodic Other connective tissue disease (4 sources) Pain in right foot; Translations: [PAIN IN RIGHT FOOT] Onset: 12-04-2021 Episodic Other nervous system disorders (1 source) Other acute postprocedural pain; Translations: [OTHER ACUTE POSTPROCEDURAL PAIN] Onset: 02-19-2022 Episodic Other non-traumatic joint disorders (9 sources) Soft tissue lesion of shoulder region; Translations: [Other specified joint disorders, unspecified shoulder] Onset: 08-11-2008 08-11-2008 Episodic Other non-traumatic joint disorders (9 sources) Finger joint unstable; Translations: [Other instability, unspecified hand] Onset: 08-12-2010 08-12-2010 Episodic Other non-traumatic joint disorders (9 sources) Hand joint pain; Translations: [Pain in joints of unspecified hand] Onset: 08-14-2010 08-14-2010 Episodic Other non-traumatic joint disorders (2 sources) Pain in unspecified hip Onset: 01-09-2021 Resolved: 02-04-2021 Episodic Other skin disorders (1 source) Localized swelling, mass and lump, left lower limb; Translations: [LOC SWELL MASS LUMP LT LOWER LIMB] Onset: 02-19-2022 Episodic Residual codes; unclassified (1 source) Other specified postprocedural states; Translations: [OTH SPECIFIED POSTPROCEDURAL STATES] Onset: 02-19-2022 Episodic Residual codes; unclassified (1 source) Acquired absence of both cervix and uterus; Translations: [ACQUIRED ABSENCE BOTH CERVIX AND UTERUS] Onset: 02-19-2022 Episodic Unclassified (2 sources) Lumbar back pain M54.50 Onset: 01-09-2021 Resolved: 02-04-2021 Urinary tract infections (9 sources) Recurrent urinary tract infection; Translations: [Urinary tract infection, site not specified] Onset: 05-14-2021 05-14-2021 Episodic Results Test Name Value Interpretation Reference Range Facility Outside Recordson 02-19-2023 Outside Records [id number] TIFF [facility] Outside Recordson 01-22-2023 Outside Records [id number] GTIFF [facility] Rad - Other Radiology Report on 12-26-2022 Rad - Other Radiology Report [id number] GTIFF [facility] Coding Summaryon 12-22-2022 Coding Summary [employer] 64 NwocslfaXUq7tOp+PGhlYWQ+ [id number] TElOSywgQVBQTElOSyIgbmFt LO4dkFBvIMLp IC8+JG1aVPVeEfctpVSnk2H8 hRH4V57lqg5sIUyeyXF3YWAi AmDoswpar0dtuRk9HAxoIdou OyBt BRVipI43YHR7rY31Xh01rFEp qMBeg7qliNj2InZjCUJbGJC9 rPhyHPjgl4OmGZNjE00njURf c2U6 CIMysZdwlRSzUxNvgDX7fK1j XLlzopoon7dachcaYht6tb01 gBGob5Q8eSX6C9LnenZ1EFNo bGQg TcaulQKKjG9veatge3zcxvtg CdTsBLEuDKv8DYu6KVMlbSxz OlOgUX74RRE8LBRmppFpH0Fd LWFs wGsqKpA8b1G4Sm7LF6LYHumh Z9FHDMJKFVepnFK+JB83ys46 F1GmRvboCqa9DWTfHTW2jBW5 aD0n WQYfNXmiw1Q5lNK0J2HijwYz nv8ss5mgVYLtVOalL00biEZz l3M3GXLhaIL8WTLriMdnKlLh aG93 Oyc+PBJmdEbop0LkLqsbn5wu w8oaeAs1KoenWZVcvkQxbBrt VJY7g4ZiNk6qGPWkfTC5hBL0 aD0i CcYzPmD0QHbpS712BxEaxJIx DzhhB02gK0KpkYD+PHRyPjx0 LQRobIivPU5cN6TiDLGkwnwc bGVm uHzkOO0kEHBfaxsnOSYthV8s XANcL3w7BkQyBfO6ORruB0Kx XVNwhosaTp28jS6yXhSbRyS4 MGlu S1CsduK8HGXjnNJdQIjzQXV5 Z99gl5R1VPIrWEQzFCW0vHL8 pV3unCxbrizpeTYgpTbtceRv dGlj CYpjFPwyU503VGAhtCobWfLb ZGluZyBEYXRlOiAgMTAvMzAv MjAyMzwvdGQ+PMCsJYT2hSfm PSAn xPEiYNwkSa3bcGroyRuhRA0g FYJxoqdtZQIxzL9dGDJkyCAc hWnzOG1iICKoofldv876GtDt MHB0 CDFpzRNwN8RfgV1nEyAnKIGd GHIuA4KjwOFrCPorP138IFve SlA1FOCwdrNsZ6TyAGGfwYuf OiB0 x1U2Vn5Pz9KmbnrwT8TlbRLj ZyDyYcxiADi9C4StAabxkWF+ TT81LEUaYE71EXt1JUQ1bZkc PSdi OJGiD8MooV3hSoRbIABzPXCq Oyc+PHRhYmxlIHdpZHRoPScx ESGjCuSasXalNS0tGo3nCQGq LWNv kOivtTYxNuJen2ldJIHvTZxb HJ8yoVloX5KpfJH8BPPvc0l6 Sf55X08vS2YahSC+PGNvbCB3 aWR0 rN7eWwStZoZ4RFlpD022SeLz mZYsQdczh0qoe6cezSw5GwT2 WYKmkmDesCfaNVX0z6GjKu59 Y29s IHdpZHRoPSIxNSUiIHZhbGln ge5shK6bWn6+KAEsrHO6wFT8 qN4vTkYmRsK8AKkjZ486FxSv cCIv Wsesy8fge9lywHg2FjEfPECv quJgsDntWQN7g0VvBz77M5Mi nKmoa5NsQps9vo36dVLqz0E5 bGU9 L2WgHUYhdqpetTVfwCurFU8n XDDnturfMCUuzM9oUREmJ4j1 GmLhOjZ0XIhxM7PzbxR0KVTd bGQg BDWdaXKPaK9zjbfsc0lzpgtq NmSgHQUuCAa2MAb1TRAdpBrv RnXtJGT2ZsP8AKG1oXGxhQ3i bGln dsombB6mWmb+FRS3pQQlgIIS OX7yAcyngSW+KKJzZCA2qOvi KMgbKDNtjC8qBXJzF6s0ZaNi LjA1 QAyoE6AajiO6CRSdxMZrFTTr gJXClK2zkkdwx7euboylFpWq KIXxBBa2EYa8HTUnpAyiGjLr ZWZ0 SsU0YOM0aWRyuC7ohNiyhaik bV8yOqd+ZaxbwBkpSWV3NMn7 X8KyTzd5GZTnuEbtMG0vuXMf ZGlu Gv2fjUqhxGblZR6yZZVlgjzt n890KyZbj6wfEPDvlJKzVTmh EHQ5N29vz9Q7MEUoNVOlGMC4 dGV4 iC0msEmpnzwkgTJhvRoskbPn tAbpKGgdWYbmZ161SSPsmNzl ZzIlSAb3U5MrTaf2SQShmKhg ZT0n vLWfYVeiZw0ipWrevDwfZD9y GGLstiahl145CsFes5fcBTBa yOIaGTuqWLC4L48pz4I9YPGc MDAw KNO4xDG2pA7mlCthulynhXXj cIoqlyGuvVtjSKspWWjoM378 UNCjjGnnYsCupSe8X9WdFny4 ZCBz mYifTG0gjMFwHCtfFa8aiGjv aVaoYK5iXBCdojlyi427QkGc t4wcANQmvZJyEDzwKDY3L22y b3I6 NVJaFVMrBBU6zTY1tH9xjRpc bjogbGVmdDsgdmVydGljYWwt MYwiJ460ECNpcBqnDlJmrGqf bnQg YDsaZEs1P5RcOktuxBN+PC90 FMAoEI79sPUkiJUws9xwaIb7 WrEhKQBdPTB9mNmmYWnxt6Jf ZXIt B27vdFPdp4X3VMGnvFvlqPDb NvScsBW7tA4rHSnmibwjn2ti mjplXgdmi5revt94dG23S82p IHdp APHlCTTeOZFgYVObvLccej0f fZ5eAf3+QTExnYI7zUR4xD9u OTZfHoA5PRkqX196PlGjtFVj Pjxj l0hoa3ztxGh5OwG0FZXbsiLk wEcoRCF7u1HlLk77R25wXSjv LHAyGPEeGHBkBHSjlPpxdu8b dG9w Ii8+ZYUtrKG4uVN1nI4iSvIz ZrG5JRffX419YlJbkTDiRzdk T98cF6BpoAB+VYTkLlm2AXCb dHls AB2paWCaJUtyUq7uAWO0AbQy RkSiPDevR5JrUILkogqphkih yUA0YPEdXNJxrS79Bb7chHfr MTBw jZNFyT8szhagy8pdqnuuGdBm BZWcIMm6NAp2EWByeTyqShTz YPX6CsF9QHP5vXGayM2rqVhq bjog tH6iO9AcWWEfdnmpYo08eU0e FuGyKmZ1UHwpHfj+REVFUkhB Q1RgDFNHI7MAPTVXUEKVJT02 ZD48 rHJld9I4jCH6W8TzKZNzpgid cpqdbIP1VOLmVXPehX59dAQl SQllBd1dm5O4k099EIEsRUSr aW47 Cm9udPdiXYWfuFZOyC5nojhf h1aljevjDtYsFIQnTAk2WKf2 TZDhxZvmNfCxWZT6BuN5TIJ3 aWNh eV8dzNeckgjxgE5fJlq+MDQv XJBkAYs1VcvtmUR+PHRkIHN0 mPerZYrxNKSahJ4dDZUaY5o8 OiAw GeJ5BMubR6KmXOAqilfvUk90 xM2cTtDrEaI8LYceS0OibhZ7 VPZcnYFuJLuhCNR2X98ck2D1 ICMw WQLoFAV7mVD3jX9xfOuzboeb bGVmdDsgdmVydGljYWwtYWxp H191MVLhoXunGwMySYskVTKo PC90 LN95kMMlb5B0rTM9C9GvKVXi hzuomsoduZG1CHJpASCauW50 xKIaHXeqGx4uf4Z5d998TUGt MDUw gR29Zw0ckMsrNPNtcZCJyD8f zetyu6ntnhevZvBgQPBaLBz4 EUu5XFEgkNaoFeSnCUF1DrN4 ZXJ0 fZAefZ4ltYvryhuovB0zXmi+ QeIISHtMKW91TB75jQIyq4S5 uTA4H7BoXRTvgfozxgxqqUC4 IDAu UFFaeJ08gKYiVWhuSs6ng3J0 v105EVDaJPIhmF55Pz7abQqf KOHfuXCTyD2lblvqn3ajuwmu IzAw NYTxSXj2JOm5OUKybDbqZsRx BZU7HxX5HHX3pSTctS2hfQhm uskrhI8dZgx+TlHtoHYeoG9i IE91 fRKhhQvphfB5A5LbCcsxmVN+ NQ44OPIkST07lHIprCCpe3hn wYu2YcVyEHDcFCT6nKgtPGhr b3Jk YLIgE53hwMMbm7E1SIXhqKpm qSGjTjRexCW1gQ5jMYrumwly k9gilhzjPchmz4xkfo75eD90 Y29s IHdpZHRoPSIzMCUiIHZhbGln am1tpJ2pUc2+FUYqcOU0wBY8 qJ1gGjWyZrX1SLpmD155TuOl cCIv Jayjr6qak1icmBi9TiUrTJFt bqPjgAgjDXX7m0HaPp77R55r IHdpZHRoPSIyMCUiIHZhbGln bj0i aT5gLu9+ZP1ub8ikop79aX79 dHI+NRLfOPX4kPsaGDlhKQUb sJ9eOGxvHpK9MZMsYhLrrL90 cGFk JDlbOp3nuZvqjNgmMV6qNZYw gseie463IpQad2ouWVDdhKRg XAsmGZM0D07wt2H9CASyGDKt MDA7 fMH3cM6vyUtwlxvaoZChrHda guYopThzHFnlCTueN579INXc yYzjEqOglWOrY4horjWKQK9i Ojwv dGQ+UZCxKPX0kAeiADyvOPMu aX1mXMVnD0v4LeHkLpP6GIyg F1KdxaY5DFPznFKhCEWvpYOU aW1l yntgj0mahbggXbRuKCYnULu4 NZv6QSKknUqxIxElFLH9KxQ6 PFY9yIQisX4mfRqznwjybA9a Oyc+ RklOOjwvdGQ+NMKbPOJ0rMrf NPouWQHzbM4bETEiX7g4QeWy AcB7LSglS0CopwJ9AIPnfKRg MTBw jURHpE1pidacp9osgnxjUtVe UAUsXIn4YVq7LHPuoMuhBzQg QMG5OlA4KUM0mQEvpB0xaKki bjog dC5nOal+TVJOOjwvdGQ+PHRk JZZ0qPodKYdaSDHyaP1tYDZt V6i9HbIbJiX0ZHbzH4IuwfX1 IGJv fCCiSPKtePSNfU2nbjbto3cd osieArVrZDGgKIj5ARi9CFVs eQknKuZxFEA8EpN6VCW6rIDt bC1h zNnjewbabK5eYqz+HVV2NDB5 LE42YM71H5HhZuuliKPovPV+ PHRhYmxlIHdpZHRoPScxMDAl [facility] (more content not included)... Normal [facility] .Auto Diff 12-17-2022 Auto [place] % 5 % Normal 1-12 [facility] Comment on above: Performed By: #### 1 [id number], [id number], [id number] ####[facility] (DEFAULT)[address] [place] [address] 11556 Baso Abs# 0.0 x10 Normal 0.0-0.2 [facility] Comment on above: Performed By: #### 1 [id number], [id number], [id number] ####[facility] (DEFAULT)[address] [place] [address] 52724 Basophils/100 WBC (Bld) 0.6 % Normal 0.2-2.0 [facility] Comment on above: Performed By: #### 1 [id number], [id number], [id number] ####[facility] (DEFAULT)[address] [place] [address] 20773 Eos Abs# 0.0 x10 Normal 0.0-0.4 [facility] Comment on above: Performed By: #### 1 [id number], [id number], [id number] ####[facility] (DEFAULT)[address] [place] [address] 83370 Eosinophils/100 WBC (Bld) 0.2 % Low 0.9-4.0 [facility] Comment on above: Performed By: #### 1 [id number], 5805921, [id number] ####[facility] (DEFAULT)[address] [place] [address] 75919 Lymph Abs# 1.4 x10 Normal 1.3-2.9 [facility] Comment on above: Performed By: #### 1 [id number], 0317530, [id number] ####[facility] (DEFAULT)[address] [place] [address] 08116 Lymphocytes/100 WBC (Bld) 20 % Normal 14-48 [facility] Comment on above: Performed By: #### 1 [id number], 0162278, [id number] ####[facility] (DEFAULT)[address] [place] [address] [place] Abs# 0.3 x10 Normal 0.0-0.8 [facility] Comment on above: Performed By: #### 1 [id number], [id number], [id number] ####[facility] (DEFAULT)[address] [place] [address] Neut Abs# 5.1 x10 Normal 1.5-9.2 [facility] Comment on above: Performed By: #### 1 [id number], 0320498, [id number] ####[facility] (DEFAULT)[address] [place] [address] Neutrophils/100 WBC (Bld) 74 % Normal 44-88 [facility] Comment on above: Performed By: #### 1 [id number], 8266854, [id number] ####[facility] (DEFAULT)[address] [place] [address] CBC w/ Auto Diffon 3 Erythrocyte distribution width (RBC) [Ratio] 14.2 % Normal 11.5-15.0 [facility] Comment on above: Performed By: #### 1 [id number], 9381057, [id number] ####[facility] (DEFAULT)[address] [place] [address] Hematocrit (Bld) [Volume fraction] 39.7 % Normal 33.7-40.4 [facility] Comment on above: Performed By: #### 1 [id number], 1770245, [id number] ####[facility] (DEFAULT)[address] [place] [address] Hemoglobin (Bld) [Mass/Vol] 13.2 g/dL Normal 11.3-15.9 [facility] Comment on above: Performed By: #### 1 [id number], 8266840, [id number] ####[facility] (DEFAULT)[address] [place] [address] Man Diff? Auto Invalid Interpretation Code [facility] Comment on above: Performed By: #### 1 [id number], 3349696, [id number] ####[facility] (DEFAULT)[address] [place] [address] 67405 MCH (RBC) [Entitic mass] 30 pg Normal 24-34 [facility] Comment on above: Performed By: #### 1 [id number], 1387865, [id number] ####[facility] (DEFAULT)[address] [place] [address] 15329 MCHC (RBC) [Mass/Vol] 33 g/dL Normal 26-37 [facility] Comment on above: Performed By: #### 1 [id number], 5469079, [id number] ####[facility] (DEFAULT)[address] [place] [address] MCV (RBC) [Entitic vol] 90 fL Normal 81-100 [facility] Comment on above: Performed By: #### 1 [id number], 6045814, [id number] ####[facility] (DEFAULT)[address] [place] [address] Platelet 330 x10 Normal 138-427 [facility] Comment on above: Performed By: #### 1 [id number], 1819586, [id number] ####[facility] (DEFAULT)[address] [place] [address] Platelet mean volume (Bld) [Entitic vol] 7.6 fL Normal 6.3-10.2 [facility] Comment on above: Performed By: #### 1 [id number], 0347517, [id number] ####[facility] (DEFAULT)[address] [place] [address] RBC 4.41 x10 Normal 3.70-5.30 [facility] Comment on above: Performed By: #### 1 4018700, 6699821, [id number] ####[facility] (DEFAULT)[address] [place] [address] 57886 WBC 6.9 x10 Normal 3.5-10.5 [facility] Comment on above: Performed By: #### 1 [id number], 6295552, [id number] ####[facility] (DEFAULT)[address] [place] [address] CMP Standardon 12-17-2022 eGFR Non AA >60 Invalid Interpretation Code [facility] Comment on above: Performed By: #### 1 [id number], 0076984, [id number] ####[facility] (DEFAULT)[address] [place] [address] eGFR AA >60 Invalid Interpretation Code [facility] Comment on above: Performed By: #### 1 [id number], 2023827, [id number] ####[facility] (DEFAULT)[address] [place] [address] Albumin [Mass/Vol] 4.4 g/dL Normal 3.5-5.0 [facility] Comment on above: Performed By: #### 1 [id number], 2325229, [id number] ####[facility] (DEFAULT)[address] [place] [address] Alk Phos 71 IU/L Normal 32-91 [facility] Comment on above: Performed By: #### 1 4875770, 9466889, [id number] ####[facility] (DEFAULT)[address] [place] [address] ALT [Catalytic activity/Vol] 21.0 U/L Normal 14.0-54.0 [facility] Comment on above: Performed By: #### 1 [id number], 6547770, [id number] ####[facility] (DEFAULT)[address] [place] [address] AST [Catalytic activity/Vol] 23 U/L Normal 15-41 [facility] Comment on above: Performed By: #### 1 1879569, 1358876, [id number] ####[facility] (DEFAULT)[address] [place] [address] Bili Total 0.6 mg/dL Normal 0.3-1.2 [facility] Comment on above: Performed By: #### 1 [id number], 7721913, [id number] ####[facility] (DEFAULT)[address] [place] [address] Calcium [Mass/Vol] 9.1 mg/dL Normal 8.9-10.3 [facility] Comment on above: Performed By: #### 1 [id number], 6063566, [id number] ####[facility] (DEFAULT)[address] [place] [address] 02245 Chloride [Moles/Vol] 102 mmol/L Normal 101-111 [facility] Comment on above: Performed By: #### 1 7491567, 9816720, [id number] ####[facility] (DEFAULT)[address] [place] [address] 06566 CO2 [Moles/Vol] 29 mmol/L Normal 21-32 [facility] Comment on above: Performed By: #### 1 [id number], 2566911, [id number] ####[facility] (DEFAULT)[address] [place] [address] 18952 Creatinine [Mass/Vol] 0.75 mg/dL Normal 0.60-1.30 [facility] Comment on above: Performed By: #### 1 [id number], 9859958, [id number] ####[facility] (DEFAULT)[address] [place] [address] 58398 Glucose [Mass/Vol] 131.0 mg/dL High 74.0-118.0 [facility] Comment on above: Performed By: #### 1 [id number], 9645251, [id number] ####[facility] (DEFAULT)[address] [place] [address] 54531 Potassium [Moles/Vol] 3.9 mmol/L Normal 3.6-5.1 [facility] Comment on above: Performed By: #### 1 [id number], 9614152, [id number] ####[facility] (DEFAULT)[address] [place] [address] 33386 Protein [Mass/Vol] 7.5 g/dL Normal 6.5-8.1 [facility] Comment on above: Performed By: #### 1 3482310, 3535644, [id number] ####[facility] (DEFAULT)[address] [place] [address] 40227 Sodium [Moles/Vol] 138.0 mmol/L Normal 136.0-144.0 [facility] Comment on above: Performed By: #### 1 3111928, 9314444, [id number] ####[facility] (DEFAULT)[address] [place] [address] 02578 Urea nitrogen [Mass/Vol] 29 mg/dL High 8-26 [facility] Comment on above: Performed By: #### 1 [id number], 2331454, [id number] ####[facility] (DEFAULT)[address] [place] [address] 59439 Albumin/Globulin [Mass ratio] 1.4 {ratio} Normal 1.4-2.6 [facility] Comment on above: Performed By: #### 1 [id number], 4888648, [id number] ####[facility] (DEFAULT)[address] [place] [address] 31888 Anion gap [Moles/Vol] 10.9 mmol/L Normal 5.0-19.0 [facility] Comment on above: Performed By: #### 1 [id number], 6911808, [id number] ####[facility] (DEFAULT)[address] [place] [address] 57354 Globulin (S) [Mass/Vol] 3.1 g/dL Normal 1.5-4.3 [facility] Comment on above: Performed By: #### 1 1538032, 5436500, [id number] ####[facility] (DEFAULT)[address] [place] [address] 25195 Osmolality 283 mOsm/L Invalid Interpretation Code [facility] Comment on above: Performed By: #### 1 1573727, 2351968, [id number] ####[facility] (DEFAULT)[address] [place] [address] 23124 Urea nitrogen/Creatini ne [Mass ratio] 38.6 mg/mg High 4.6-16.2 [facility] Comment on above: Performed By: #### 1 5189746, 9424944, [id number] ####[facility] (DEFAULT)[address] [place] [address] 88320 Provider Orderson 12-17-2022 Provider Orders [id number]#1.00OT GTIFF Normal [facility] Rad - Other Radiology Report on 12-04-2022 Rad - Other Radiology Report [id number]#1.00OT [facility] Rad - Other Radiology Report on 11-17-2022 Rad - Other Radiology Report [id number]#1.00OTG [facility] Rad - Other Radiology Report on 10-15-2022 Rad - Other Radiology Report [id number]#1.00OT [facility] Rad - Other Radiology Report on 10-08-2022 Rad - Other Radiology Report [id number]#1.00OTG [facility] Outside Recordson 10-06-2022 Outside Records [id number]#1.00O [facility] Rad - Other Radiology Report on 09-18-2022 Rad - Other Radiology Report [id number]#1.00O [facility] Lab - Other Lab Resultson Lab - Other Lab Results [id number]#1.00OT [facility] CNOVon 07-03-2022 CNOV Office Visit (NSFRVW ) -------- PAOLA JACOBO ([id number]) 1960 F Date Time Provider Department 07/03/22 9:45 AM MAY RICHARDSON NSFAYAH During your visit today, we recorded the following information about you: Pulse Blood pressure Weight Height 70/minute 121/84 91.6 kg 1.651 m May Richardson MD 07/03/2022 12:33 PM Signed SPINE SURGERY ESTABLISHED This is an in-person visit. DATE OF SERVICE: 07/03/2022 DATE OF LAST VISIT: 10/24/2021 SUBJECTIVE: HPI:Paola Jacobo is a 62 year old female presenting alone. She is s/p L4-5 laminectomy and transforaminal lumbar interbody fusion, 05/22/2021. At [facility], the patient reported experiencing a mild low back ache. She stated it was nothing serious or unbearable. She denied any pain going down the legs. She stated she was very pleased with her surgery results. She reported she was struggling to lose weight. Patient was eager to return to swimming. Today, the patient reports some low back pain. She states that after her surgery she had to use a wound vac for 6-8 weeks, but her incision is well healed now. She states that she continues to take gabapentin. She states she is seeing a accordion repairer. PAIN EVALUATION 07/03/2022 0939 Pain Level: 3 Pain Location: Back-Lower Description: Stabbing Duration Units: Unknown Frequency: Intermittent AMBULATORY STATUS: Impaired Community Distances ANTIPLATELET OR ANTICOAGULATION STATUS: No PREVIOUS CONSERVATIVE TREATMENTS: acetaminophen, gabapentin. REVIEW OF SYSTEMS: GENERAL: No weight loss or malaise MUSCULOSKELETAL: SEE HPI NEURO: No history of headaches, syncope, paralysis, seizures or tremors MEDICATIONS: celecoxib (CELEBREX) 200 mg capsule Take by mouth q 12 HR. alendronate (FOSAMAX) 70 mg tablet Take by mouth. estradiol (ESTRACE) 0.01 % (0.1 mg/gram) vaginal cream Estrace 0.1 MG/GM as directed Vaginal 2 x weekly Active semaglutide (OZEMPIC) 0.25 mg or 0.5 mg(2 mg/1.5 mL) pen Inject subcutaneously. glucosamine sulfate (MARIELLE ORAL) Take by mouth. cholecalciferol (VITAMIN D-3) 50 mcg (2,000 unit) tablet Take 2,000 Units by mouth once daily. ascorbic acid (VITAMIN C ORAL) Take by mouth. 1000mg calcium citrate/vitamin D3 (CITRACAL + D ORAL) Take by mouth. acetaminophen (TYLENOL) 500 mg tablet Take 2 tablets by mouth every 6 hours as needed for pain. Methenamine Hippurate (HIPREX) 1 gram tablet Take 1 g by mouth twice daily. pantoprazole DR (PROTONIX) 40 mg tablet once daily. gabapentin (NEURONTIN) 400 mg capsule Take 400 mg by mouth twice daily. Taking 800mg 2x daily sulfamethoxazole/trimeth oprim (BACTRIM ORAL) Take by mouth as directed. (Patient not taking: No sig reported) Patient Entered Questionnaires Spine Questions 06/27/2021 10/20/2021 07/01/2022 Pain Location: Lower back Lower back Lower back Pain Duration: - - More than 5 years Pain over last 6 months: - - At least half the days in the past 6 months Symptoms from neck/cervical spine: No No No Employment Status: - Other Other Off work 1 month or more due to back/neck pain: - No Does not apply Applied for/receive disability/WC due to low back/neck pain - No No Involved in law suit/legal claim: - - No PROMIS Score Percentiles Physical Health 06/27/2021 10/20/2021 07/01/2022 Physical Function Percentile 1 18* 18* Sleep Percentile 10 18* 27* Fatigue Percentile 8 31 14 Pain Interference Percentile 16* 18* 18* PROMIS SOCIAL ROLE SCORE 06/27/2021 10/20/2021 07/01/2022 Social Role Satisfaction Percentile 5 31 31 PROMIS Global Health Scale 06/27/2021 10/20/2021 07/01/2022 Physical Health Percentile 10 22* 7 Mental Health Percentile 13 26* 26* Percentiles provide an indication of how the patient's score ranks in relation to the general population. Higher percentile rankings indicate better function/quality of life. 50th percentile is the average of the general population and indicates half of respondents had a worse score. Depression Screening: PHQ-9 06/27/2021 10/20/2021 07/01/2022 Score 14 7 4 PHQ-9 Self-harm Question 06/27/2021 10/20/2021 07/01/2022 Thoughts that you would be better off , or of hurting yourself in some way 0 0 0 PHQ-9 Self-Harm (Item 9) response options: 0 Not at all 1 Several days 2 More than half the days 3 Nearly every day PHQ-9 Levels: 0-4 No to mild depression 5-9 Mild depression 10-14 Moderate depression 15-19 Moderately severe depression 20-27 Severe depression OBJECTIVE: PHYSICAL EXAM: BP 121/84 Pulse 70 Ht 5' 5 (1.65m) Wt 201 lb 14.4 oz (91.6kg) LMP 11/02/2004 BMI 33.60 kg/(m2). GENERAL APPEARANCE: Well nourished, well developed, and no apparent distress. NEURO PSYCH: Patient oriented to person, place, and time. Mood pleasant. Benign affect. MUSCULOSKELETAL VISUAL INSPECTION CERVICAL: WNL THORACIC: WNL LUMBAR: WNL MOTOR: 5/5 in all muscle groups. SENSORY: Normal sens (more content not included)... Normal [facility] 05-05-2022 Outside Records [id number]#1.00OT GTIFF Normal [facility] - Other Lab [facility] Lab - Other Lab Results [id number]#1.00OTG TIFF Normal [facility] POINT OF CARE GLUCOSEon Glucose [Mass/Vol] 111 mg/dL Critically high 74-106 [facility] Comment on above: Performed By: #### P OCGLUC ####[facility] [address] [address]Dr. Garrett Shannon Glucose [Mass/Vol] 103 mg/dL Normal 74-106 [facility] Comment on above: Performed By: #### P OCGLUC ####[facility] [address] [address]Dr. Garrett Shannon Lab - Other Lab [facility] - Other Lab Results [id number]#1.00OT GTIFF [facility] PROF CHEM 8 (BAS METB)on Anion gap [Moles/Vol] 11.3 mmol/L Normal [facility] Comment on above: Performed By: #### B MP #### [facility] [address] [address] [address] Garrett Shannon Calcium [Mass/Vol] 9.1 mg/dL Normal 8.5-10.1 [facility] Comment on above: Performed By: #### B MP #### [facility] [address] [address] [address] Garrett Shannon Chloride [Moles/Vol] 100 mmol/L Normal 98-107 [facility] Comment on above: Performed By: #### B MP #### [facility] [address] [address] [address] Garrett Shannon CO2 [Moles/Vol] 30.2 mmol/L Normal 21.0-32.0 [facility] Comment on above: Performed By: #### B MP #### [facility] [address] [address] [address] Garrett Shannon Creatinine [Mass/Vol] 0.90 mg/dL Normal 0.55-1.02 [facility] Comment on above: Performed By: #### B MP #### [facility] [address] [place] [address] Dr. Garrett Shannon EGFR-AF CHINESE >60 Normal >=60 [facility] Comment on above: Performed By: #### B MP #### [facility] [address] [place] [address] Dr. Garrett Shannon EGFR-NON AF CHINESE >60 Normal >=60 [facility] Comment on above: Performed By: #### B MP #### [facility] [address] [place] [address] Dr. Garrett Shannon Glucose [Mass/Vol] 84 mg/dL Normal 74-106 [facility] Comment on above: Performed By: #### B MP #### [facility] [address] [place] [address] Dr. Garrett Shannon Potassium [Moles/Vol] 4.5 mmol/L Normal 3.5-5.1 [facility] Comment on above: Performed By: #### B MP #### [facility] [address] [place] [address] Dr. Garrett Shannon Sodium [Moles/Vol] 137 mmol/L Normal 136-145 [facility] Comment on above: Performed By: #### B MP #### [facility] [address] [address] [address] Garrett Shannon Urea nitrogen [Mass/Vol] 22.0 mg/dL Critically high 7.0-18.0 [facility] Comment on above: Performed By: #### B MP #### [facility] [id number] Garrett Shannon Urea nitrogen/Creatini ne [Mass ratio] 24.4 mg/mg Normal [facility] Comment on above: Performed By: #### B MP #### [facility] [address] [address] [address] Garrett Shannon Coding Summaryon 03-06-2022 Coding Summary [employer] 64 PmwejeraJIs8tZk+PGhlYWQ+ XD9AYYCiJ41mhYMgbI5ZW8wA YD1DVLZQITAEJW8VEL0nbON5 PMwmP6IwdgSs JvndeIPgNM32ILt9GVR5xUkf DOfsrF0zdGIsV8e4FxVdKN75 wN68NWohFIPcNsR5SyEiztly bWFy C0dpDiRisVHeTfy+PHRhYmxl IHdpZHRoPScxMDAlJyBzdHls MU3zEu2uWGPlQBAyfUrelEGl OiBj u7yiOKGyHJahTI6qyLwiM8Jb iHX7VJDdi5i6Az62bJM+PHRk PPV1iGpyCEunj882VxWma1jo IDM3 wWLfACxeKDU3Y48av9Q1JBLg GOUeHVH2nYK0zP9iaFpfjntv G3LedYWiDgG1BYO5fQKzcN8d bGln mhvzpI8xRug+C15IUS0WKMCV GB7EZem6G6ZcZcgbfTA+PC90 TUVwPL86qPAkaHVci1uebMn3 JzEw INJzGDT9yZixAWafa9FrIQHs I39tfUFwi2W4FJJgeDeamTEu EiWviAQ9qU8tDEhkbeids1ch dzsn Lvwlr5agye83vX07J11iZQte LPMfEJO3HHUhILHkxAqcoo8p aK4tAt3+LQzdn4jrx8zeeGi4 IjIw BGJlodHysLaxEML6x8PtMf82 U7TxnNuoq9SyKlt1ui20nKPp p8O8pJP0OKjuKMWjgQ7iLJso ZnQ6 PZDyYsKnaZ05hTGbMJgfYb4a jCfpuHbrPJ6bANZwgmnzGODj fC3gDUSmsSMcgXvwSI5vHZXg bjtm v084ObAhODH6QDNbcIRnJ4Ve xW1kGlNvXIMaFOCgW6YenQYk MFdnN122WGqbXaR0YEYagoYi Y2Fs VTMsqUbiKwQ1y8N8Fi9Rp5Ud gsxfHNL1VIfpAQIhOnVfQdNl AvY6J4KwPuz1VLDqbNxjFI9i J3Bh QLAlcdlxhfgcdQZ7FQHgDUCn cX00uJWsROnwIh2ph5S8o687 UATcOSCqoK65Fk1okYbeESIs dCBU aM6cazotv0updmecZoHlHHVg TBp2SPg5SJKbtUqgJcDcXHN5 FfP3CTS7uLGubG3xsUwtyuxe dG9w Oyc+S20dfV5uSRA4FIW1iwqs FLMdloKiMS51PA04U2GpOkvo dGFibGU+WHYsjyVnrCpfBU6a YmFj f9etg5AoYPctC6HqNNVdIJof Ltm5TEDzUAJ8uHY6dP4cZLCu UKjcg5W3kRT9Q9MhhgIpfr4h b2xs RPUzCNeqV11uvHJss9R0KGMt wUB5WXXvnWglUcCosG70Kdt+ WMTcdHqpa4ZtOxlii7vdd8sx dGg9 HwPsCMFdvhZggFubQPI3j3Va Ag36S78bEYanJPLhWPCgBVBq TBVvbBdenz8eeJ6yCe3+PGNv bCB3 fKS2oB3sETCpGiB2UIfuW558 IwScbRXgZckaz8sgy2tfkSi6 CeDjNLDhrlAovTilWPC9c5Yc Lz48 X36cORhcJHVmWFUxUTPaCFVc qQgyut2xnS4zZo2+FF5fu0dc vj03dR75zUT+XQLnQFU9wWln PSdw QYXwvU1iCEbrCdC4CSDoEjRl wO18yZWdBYbpNa2rbOilvFyd VT7dOKFyzxpuo020FzVgj2ch IDEw aRAvOXsiMCJ3M99ia9Y2JNZc JFNiEIC2zOH7sI5fySwrlmyc bGVmdDsgdmVydGljYWwtYWxp Z246 IHRvcDsnPlBhdGllbnQgTmFt JVl7J0KuBht1QXQdxIwiEP0o yDZzFGeaIs7wrXogfTarZK9a NTBp kimiu233FwOdd5orWIVaaJYi KVfhHVA0W37jg3R6RRGaDICj OTX2yUW7eF9nbZvyywrxbUIe dDsg hxWdrEejZIfiEVqiT477UIRh uZusLoLfqbOmVSXbxEL9FU28 HH79cHIth7Z9vFN6S7RrVPSc bmct qhjihLG7DYJpSWSvsP66Ff6i iQvrVe2qNFWgNSK2UURjjNLw G0FksR4bMdUwSMLpCOHdO8Th eHQt HYqdG402PWjdKnK5QYAateMs B7LkKBCpgBypCtY2x9H6Bh3X Y5E6PD83BV78jICkv5T7qDS7 J3Bh OYEuynscxadbwQJ2TJVuPKCu tW41Gg8nfUkuJi4fYLJyZXR9 FTOkxEJaI9KxtA6bQcXdBOTi MDAw C0VmtIOdHLfjT906DWhvGtB4 SQLeesZuY6AfVGFldBwwJbE6 b2K2Di7LPRo4WB07YM80kEQo c3R5 iUL5W7XmSTUwysnvmzmplKC1 SMBqXTLjwW93Ck4hzKjlQe7b OBTfOAQ0NUHazXFcU8InjA3m OiAj EWQdGCKeO9EigFWzSNanG548 PYfhVrQ7ZSTsesLfH0RsZEEd wCfeYoR2n7D6Vy9ELOWvNA43 IFR5 uNQ5CS25HS50B4ElLiorjIVd bGU+PHRhYmxlIHdpZHRoPScx WKZzYkSaxLckRQ2gTa7yMQFc LWNv sGpzrUXtXdMvx1hsJCXoRIis OA8prZzoK9XtiVJ6QZTfu7w9 So02G46fE7SeqWC+PGNvbCB3 aWR0 zO7cTsKpRjP1USsaK580CrBj pOKlCwksg7nyk5mwyRb5PfP1 KZNgjtFxzBtuHAQ6e6PbUv58 Y29s IHdpZHRoPSIxNSUiIHZhbGln lc8vbW5oGq3+JHHdiZE2pZO4 eC4kYcGyFsQ8IVccL208UlLi cCIv Whewa4vmg1ytpUf2QvKtHFAc yhIsvYclYTM4i5JrSo15K2Hd kZofb2MyNhm4cw56tREda7Y7 bGU9 F9WmQLVdntuykEGalZxjKS0z IIVmiusvFQIahA0fVEWnY7x2 TyCqKbU8GEdpR8NzfvQ6DUAn cHQg XOpzJXN9N25kc7V1AEBgROMy ISC7bKK3lI5ciEnfzwjfkINj gEnaejHtcHuxRTgoGYdwQ195 IHRv zNmgVINudJ7cVHBxkFLczJsx MK9rGPJgkcnoNiKUMXLMLCsQ LCBTVVNBTiBFRElUSDwvdGQ+ PHRk JNM5dSxiIMdvDLQlbW6mJRXi O1m0BnQbDfF8EKjwU1MiCZVk fhhpQh05vY3cMaOhUhR0MXls O2Zv duQ1VOFvpMOoSKwoRQP3S79d z9N9FXEtJGUbYDT4iYG6jI2f bGlnbjogbGVmdDsgdmVydGlj YWwt VJwbW134PEMirFpkNlA0OaLs BrL0OaK6L8FnAlh7VCBucXcb LR6uxZYlYBavXz6zlRghnPxz MC4w CEFlabbnBLTctL1nBHSfzBMh nZaiJG8pXEUtgmhot574OsVe MWG9NFKmkAAaT9WwpC4jYkXr MDAw HXPuH2TipEByMNltR277HNnz VtL7FSDlxfFxB9RrECPkpAqu SbA6e7P1Gn55JHQMGMLlwljz dGQ+ RPHsWHI9jNunWDcyDAAxxZ0o QRHuT8q7RbUtGyT5RZirF7Mx MIXwwvkbUl11cM3jBpJjUzQ3 MGlu Z0PcreB7TXBdjGOrHQroLYW2 S48fh8P0LCVpKEPyAIK6aRL5 lH0maKcxqyiqhPQdaLepatSm dGlj MHqpIZmuX593MHBjzJovMxJL TUFMRTwvdGQ+WRJcKDX2aYme KIegVXExhY3dVPFtJ7f2CrLg LjA1 QGefP7GrPKFecuzaZm92bH0p QnYeEkQ6MPdvQ0ZvmaW2GWBr wVXqFTmuNHE2F14jw4T5RTMp MDAw LCO5sCZ7eV8reDtowsibgMVr bAzpudTgyHlnDYypFCaxA317 SKOzuDhsTs0VZD44GJ53H8Vf Pjwv dGFibGU+PHRhYmxlIHdpZHRo PRgdNMPhHdVsnQfxVD6jYh7n WUHhELLidZxnsRAiUqGui1wp YXBz PDrlGO3vaKadJ6GgmJF9UTOh f8c3Ev24W81tS1RgoOC+PGNv pAO6nKL1gQ9jEwMdEpM1GNus Z249 XrBmwBUlYbgjg6mhn9rtoEv3 OsAwWPBtedJfrPcqNOV6y2Gj Qy00D91vQOnzMSEfHYLqZENt IHZh zUyapj2ttE6nJg9+PGNvbCB3 bYJ2sB9oNaXcKyW9TAyzS392 ZaZteJTzYpvfB33eY1QeaTL+ PHRy Ymx1LOGpqTdnYI9tgBOfATnq Qr4gVHX5GxSoTvGiBNxeE1Ny GPIqduaguyxmgWP1TRYnDQWp aW47 Mi1lkCseOf8bENFbAJI6PZGa qPZwC1JtgG5tVjJpTUHnHXAu Y3KgaGTfKRadX012UNnzDqL5 IHZl fyYsL8LmDIAkgJbuCqI9j4I2 Eh0XqAzqnTBsMB1gQpVyGWa2 Y4VnUrq3EDGqzChyOT9dwBSw ZGlu Lg6usOaftEjiAV7wULGhdkag h415SrIjj4viTFBzdGChTNkx WKX9U83vm4W0GVOlIZCxNXQ3 dGV4 aO3lwQdbaqrswZRbuAdakhQo tBsaJGfuATxhQ546CYGfbAer BbMDCfs5X7GiXny5NYEnuPub ZT0n dKVpCDvcHx0kdNcupYkdVN0j WCPfftcrf462GbWqj9eoCUXs sAHbWHpfNHL9T17gq8X1IZUa MDAw KUA8uBG2eK4ayHbutvfqfTHp dDonleFceAkjFKjlGNxeM669 OYEqaWpyLg7VLjo6B9FiPnp0 ZCBz yHzuTY2ldHGlAJnxGa7klIau lYvwWO0kTVIswxacp433KmDh q0coPIGyuQSeWXnyNDH6C88y b3I6 TVPyQXYrNNL7kGM6wT2ttBpz bjogbGVmdDsgdmVydGljYWwt FSsmS461HKTsdGnnUeAayYCr Ojwv dGQ+WH33cf21I3VgHqzvLwg1 AGRrZDK2yMD6lV0gAPOxEWrp v1D3gRY3U2RgdzAxhb1ky0xh YXBz ZTo (more content not included)... Normal [facility] Provider Orderson 03-06-2022 Provider Orders [id number] TIFF Normal [facility] CMP Standardon 03-05-2022 eGFR Non AA >60 Invalid Interpretation Code [facility] Comment on above: Performed By: #### 1 [id number], [id number] ####[facility] (DEFAULT)[address] [place] [address] eGFR AA >60 Invalid Interpretation Code [facility] Comment on above: Result Comment: Title Department Manager lexa Kidney disease could be indicated at eGFRs of less than 60 ml/min/1.73m2. Kidney Failure is indicated at less than 15 ml/min/1.73m2 Performed By: #### 1 [id number], [id number] ####[facility] (DEFAULT)[address] [place] [address] 69453 Albumin [Mass/Vol] 4.3 g/dL Normal 3.5-5.0 [facility] Comment on above: Performed By: #### 1 [id number], [id number] ####[facility] (DEFAULT)[address] [place] [address] 61947 Albumin/Globulin [Mass ratio] 1.4 {ratio} Normal 1.4-2.6 [facility] Comment on above: Performed By: #### 1 [id number], [id number] ####[facility] (DEFAULT)[address] [place] [address] 11063 Alk Phos 126 IU/L High 32-91 [facility] Comment on above: Performed By: #### 1 [id number], [id number] ####[facility] (DEFAULT)[address] [place] [address] 64493 ALT [Catalytic activity/Vol] 23.0 U/L Normal 14.0-54.0 [facility] Comment on above: Performed By: #### 1 [id number], [id number] ####[facility] (DEFAULT)[address] [place] [address] 75059 Anion gap [Moles/Vol] 15.0 mmol/L Normal 5.0-19.0 [facility] Comment on above: Performed By: #### 1 [id number], [id number] ####[facility] (DEFAULT)[address] [place] [address] 35859 AST [Catalytic activity/Vol] 21 U/L Normal 15-41 [facility] Comment on above: Performed By: #### 1 [id number], [id number] ####[facility] (DEFAULT)[address] [place] [address] 66029 Bili Total 0.8 mg/dL Normal 0.3-1.2 [facility] Comment on above: Performed By: #### 1 [id number], [id number] ####[facility] (DEFAULT)[address] [place] [address] 65993 Calcium [Mass/Vol] 8.9 mg/dL Normal 8.9-10.3 [facility] Comment on above: Performed By: #### 1 [id number], [id number] ####[facility] (DEFAULT)[address] [place] [address] 81464 Chloride [Moles/Vol] 99 mmol/L Low 101-111 [facility] Comment on above: Performed By: #### 1 [id number], [id number] ####[facility] (DEFAULT)[address] [place] [address] 31951 CO2 [Moles/Vol] 26 mmol/L Normal 21-32 [facility] Comment on above: Performed By: #### 1 [id number], [id number] ####[facility] (DEFAULT)[address] [place] [address] 79783 Creatinine [Mass/Vol] 0.79 mg/dL Normal 0.60-1.30 [facility] Comment on above: Performed By: #### 1 [id number], [id number] ####[facility] (DEFAULT)[address] [place] [address] 01541 Globulin (S) [Mass/Vol] 3.0 g/dL Normal 1.5-4.3 [facility] Comment on above: Performed By: #### 1 [id number], [id number] ####[facility] (DEFAULT)[address] [place] [address] 75937 Glucose [Mass/Vol] 92.0 mg/dL Normal 74.0-118.0 [facility] Comment on above: Performed By: #### 1 [id number], [id number] ####[facility] (DEFAULT)[address] [place] [address] 19115 Osmolality 272 mOsm/L Invalid Interpretation Code [facility] Comment on above: Performed By: #### 1 [id number], [id number] ####[facility] (DEFAULT)[address] [place] [address] 76091 Potassium [Moles/Vol] 4.5 mmol/L Normal 3.6-5.1 [facility] Comment on above: Performed By: #### 1 [id number], [id number] ####[facility] (DEFAULT)[address] [place] [address] 64196 Protein [Mass/Vol] 7.3 g/dL Normal 6.5-8.1 [facility] Comment on above: Performed By: #### 1 [id number], [id number] ####[facility] (DEFAULT)[address] [place] [address] 38730 Sodium [Moles/Vol] 135.0 mmol/L Low 136.0-144.0 [facility] Comment on above: Performed By: #### 1 [id number], [id number] ####[facility] (DEFAULT)[address] [place] [address] 37810 Urea nitrogen [Mass/Vol] 20 mg/dL Normal 8-26 [facility] Comment on above: Performed By: #### 1 [id number], [id number] ####[facility] (DEFAULT)[address] [place] [address] 15146 Urea nitrogen/Creatini ne [Mass ratio] 25.0 mg/mg High 4.6-16.2 [facility] Comment on above: Performed By: #### 1 [id number], [id number] ####[facility] (DEFAULT)[address] [place] [address] 96000 Lipid Panel Standardon 03-05 Cholesterol [Mass/Vol] 242.0 mg/dL High 66.0-200.0 [facility] Comment on above: Result Comment: Li rable - Less than 200 mg/dL Borderline high risk - 200-239 mg/dL High risk - 240 mg/dL and over. Performed By: #### 1 [id number], [id number] ####[facility] (DEFAULT)[address] [place] [address] 07513 Cholesterol in HDL [Mass/Vol] 49 mg/dL Normal 40-71 [facility] Comment on above: Result Comment: High risk - <40 mg/dL. Performed By: #### 1 [id number], [id number] ####[facility] (DEFAULT)[address] [place] [address] 57772 Cholesterol in LDL [Mass/Vol] 169 mg/dL High 1-100 [facility] Comment on above: Result Comment: Opti mal - Less than 100 mg/dL Borderline high risk - 130-159 mg/dL High risk - 160-189 mg/dL. Performed By: #### 1 [id number], [id number] ####[facility] (DEFAULT)[address] [place] [address] 48994 Cholesterol.total /Cholesterol in HDL [Mass ratio] 4.9 {ratio} High 0.0-4.5 [facility] Comment on above: Performed By: #### 1 [id number], [id number] ####[facility] (DEFAULT)[address] [place] [address] Triglyceride [Mass/Vol] 120.0 mg/dL Normal 0.0-150.0 [facility] Comment on above: Performed By: #### 1 [id number], [id number] ####[facility] (DEFAULT)[address] [place] [address] 94521 VLDL. 24 mg/dL Normal 5-40 [facility] Comment on above: Performed By: #### 1 [id number], [id number] ####[facility] (DEFAULT)[address] [place] [address] 79307 US JAKE DOP LEG LTon 02-18-20 US JAKE DOP LEG LT EXAM: US JAKE DOP LEG LT HISTORY: Postoperative pain . The patient has left calf pain worsening over the past 2 days. The patient had surgery 1 week ago. COMPARISON: None. TECHNIQUE: Multiple sonographic images of the deep veins of the left lower extremity were obtained, supplemented with Doppler. FINDINGS: The deep veins of the left lower extremity are fairly well-visualized the groin to the mid calf. No filling defect is identified in the deep veins to indicate a thrombus. There is normal compression augmentation to flow. A complex partially cystic mass is seen in the mid calf medially measuring approximately 11.4 x 10.2 x 2.3 cm and corresponding to the patient's reported site of pain. IMPRESSION: There is no direct or indirect evidence of deep vein thrombosis in the left lower extremity at this time. A complex partially cystic mass is noted at the calf and the site of pain indicated by the patient. The etiology is uncertain although this is probably a hematoma given the patient's recent surgical history. A follow up ultrasound study of this area is recommended until it clears. Electronically authenticated by: JEREMIAS GOEL Date: 2022-02-17 12:56 Normal [facility] POINT OF CARE GLUCOSEon 01-23 Glucose [Mass/Vol] 102 mg/dL Normal 74-106 [facility] Comment on above: Performed By: #### P OCGLUC #### [facility] [address] [place] [address] Dr. Garrett Shannon Glucose [Mass/Vol] 80 mg/dL Normal 74-106 [facility] Comment on above: Performed By: #### P OCGLUC #### [facility] [address] [address] [address] Garrett Shannon Covid-19 PCR ([facility])on 01-23 SARS-CoV-2 (COVID-19) RNA FREDO+probe Ql (Unsp spec) Not detected Normal NOT DETECTED [facility] Comment on above: Result Comment: This test is not yet approved or cleared by the [place] FDA. When there are no FDA-approved or cleared tests available, and other criteria are met, FDA can make tests available under an emergency access mechanism called an Emergency Use Authorization (EUA). The EUA for this test is supported by the [place] of Health and Human Service's (HHS's) declaration that circumstances exist to justify the emergency use of in vitro diagnostics for the detection and/or diagnosis of the virus that causes COVID-19. This EUA will remain in effect (meaning this test can be used) for the duration of the COVID-19 declaration justifying emergency of IVDs, unless it is terminated or revoked by FDA (after which the test may no longer be used). When diagnostic testing is negative, the possibility of a false negative should be considered in the context of a patient's recent exposures and the presence of clinical signs and symptoms consistent with SARS-CoV-2. Performed By: #### C VDTBH #### [facility] [address] [place] [address] Dr. Garrett Shannon XR FOOT DES MIN 3 VIEWSon XR FOOT DES MIN 3 VIEWS EXAMINATION: XR FOOT DES MIN 3 VIEWS HISTORY: Pain COMPARISON: No relevant comparison available. FINDINGS: RIGHT FINDINGS: BONES: Prior bunionectomy and osteotomy of the first metatarsal. Prior osteotomy and repair of fifth metatarsal. Moderate degenerative changes of the second, third, and fourth tarsal-metatarsal joints. Pes planus. SOFT TISSUES: No visible soft tissue swelling. OTHER: Negative. LEFT FINDINGS: BONES: Prior bunionectomy and osteotomy of the first metatarsal. Remote fracture and healing versus prior osteotomy of the fifth metatarsal. Marked degenerative changes of the second, third, and fourth tarsal-metatarsal joints. Pes planus. SOFT TISSUES: No visible soft tissue swelling. OTHER: Negative. IMPRESSION: RIGHT CONCLUSION: Midfoot moderate degenerative changes and postsurgical changes of the first and fifth metatarsals. LEFT CONCLUSION: Midfoot marked degenerative changes and postsurgical changes of the first and fifth metatarsals. Electronically authenticated by: ION SPRING Date: 2021-12-04 17:22 [facility] ) -------- PAOLA JACOBO ([id number]) 1960 F Date Time Provider Department 10/24/21 9:00 AM MAY RICHARDSON NSFRVW During your visit today, we recorded the following information about you: Pulse Blood pressure Weight Height 74/minute 133/79 97.7 kg 1.651 m Guerline Ward 10/24/2021 2:50 PM Signed SPINE SURGERY FOLLOW UP SERVICE DATE: 10/24/2021 SURGERY DATE: 05/22/2021 Paola Jacobo is a 61 year old female who presents 6 months s/p L4-5 laminectomy and transforaminal lumbar interbody fusion. At [facility], the patient reported she was doing great. Today, the patient reports experiencing a mild low back ache. She states is nothing serious or unbearable. She denies any pain going down the legs. She states she is very pleased with her surgery result. She reports she is struggling to lose weight. Patient is eager to return to swimming. PAIN EVALUATION 10/24/2021 0931 Pain Level: 2 Pain Location: Back-Lower Description: Aching Duration Units: Unknown Frequency: Intermittent Intervention/Comfort measure: Medication ANTIPLATELET OR ANTICOAGULATION STATUS: No Patient Entered Questionnaires Spine Questions 05/31/2021 06/27/2021 10/20/2021 Pain Location: Lower back Lower back Lower back Pain Duration: - - - Pain over last 6 months: - - - Symptoms from neck/cervical spine: No No No Employment Status: - - Other Off work 1 month or more due to back/neck pain: - - No Applied for/receive disability/WC due to low back/neck pain - - No Involved in law suit/legal claim: - - - PROMIS Score Percentiles Physical Health 05/31/2021 06/27/2021 10/20/2021 Physical Function Percentile 0 1 18* Sleep Percentile 3 10 18* Fatigue Percentile 1 8 31 Pain Interference Percentile 1 16* 18* PROMIS SOCIAL ROLE SCORE 05/31/2021 06/27/2021 10/20/2021 Social Role Satisfaction Percentile 1 5 31 PROMIS Global Health Scale 04/02/2021 06/27/2021 10/20/2021 Physical Health Percentile 7 10 22* Mental Health Percentile 3 13 26* Percentiles provide an indication of how the patient's score ranks in relation to the general population. Higher percentile rankings indicate better function/quality of life. 50th percentile is the average of the general population and indicates half of respondents had a worse score. Depression Screening: PHQ-9 05/31/2021 06/27/2021 10/20/2021 Score 14 14 7 PHQ-9 Self-harm Question 05/31/2021 06/27/2021 10/20/2021 Thoughts that you would be better off , or of hurting yourself in some way 0 0 0 PHQ-9 Self-Harm (Item 9) response options: 0 Not at all 1 Several days 2 More than half the days 3 Nearly every day PHQ-9 Levels: 0-4 No to mild depression 5-9 Mild depression 10-14 Moderate depression 15-19 Moderately severe depression 20-27 Severe depression PHYSICAL EXAM: BP 133/79 Pulse 74 Ht 165.1 cm (5' 5 ) Wt 97.7 kg (215 lb 6.4 oz) LMP 11/02/2004 BMI 35.84 kg/m? GENERAL APPEARANCE: Well nourished, well developed, and no apparent distress. NEURO PSYCH: Patient oriented to person, place, and time. Mood pleasant. Benign affect. MUSCULOSKELETAL VISUAL INSPECTION: incision well healed CERVICAL: WNL THORACIC: WNL LUMBAR: WNL MOTOR: 5/5 in all muscle groups. SENSORY: Normal sensory exam GAIT: Normal. REFLEXES: +2 to bilateral U/L extremities. STRAIGHT LEG TEST: Normal Good sagittal balance. NEURO TESTS: None DATA REVIEW No additional images reviewed today ASSESSMENT/PLAN 6 months s/p L4-5 laminectomy and transforaminal lumbar interbody fusion. Paola Jacobo will continue with medical management of his/her condition. No Orders Entered Today Patient was advise to slowly transition back into physical activity such as swimming. X Ray ordered and to be reviewed at 1 year post surgery. Patient can continue to wear brace. Follow up: Six months I spent a total of 15 minutes on the date of the service which included preparing to see the patient, fjsr-[id number] patient care, completing clinical documentation, obtaining and/or reviewing separately obtained history, performing a medically appropriate examination, and counseling and educating the patient/family/caregiver . Scribe Attestation: By signing my name below, I, Guerline Ward, attest that this documentation has been prepared under the direction and in the presence of Dr. May Richardson.Electronically Signed: Deshawn Richey. October 24, 2021 7:28 AM Provider Attestation:I, Dr. May Richardson, personally performed the services described in this documentation. All medical record entries made by the scribe were at my direction and in my presence. I have reviewed the chart and discharge instructions (if applicable) and agree that the record reflects my personal performance and is accurate and complete. Electronically Signed: Dr. May Richardson. October 24, 2021 7:28 AM SI (more content not included)... Normal [facility] Basic metabolic 2000 panelon 05-26-2021 Anion gap [Moles/Vol] 11 mmol/L Normal 9-18 [facility] Comment on above: Order Comment: Speci men Type: BLOOD SPECIMENOrdering Facility: [facility] Address: [address] [place] [address] Performed By: #### 2 4321-2 ####[facility]ORYCLIA [id number] [place] [address] [place] Calcium [Mass/Vol] 8.3 mg/dL Low 8.5-10.2 [facility] Comment on above: Order Comment: Speci men Type: BLOOD SPECIMENOrdering Facility: [facility] Address: [facility] [address] Performed By: #### 2 4321-2 ####[facility]ORATORYCLIA [id number] [address] [place] [address] [place] Chloride [Moles/Vol] 99 mmol/L Normal 97-105 [facility] Comment on above: Order Comment: Speci men Type: BLOOD SPECIMENOrdering Facility: [facility] Address: [address] [place] [address] Performed By: #### 2 4321-2 ####[facility]ATORYCLIA [id number] [place] [address] [place] CO2 [Moles/Vol] 30 mmol/L Normal 22-30 [facility] Comment on above: Order Comment: Speci men Type: BLOOD SPECIMENOrdering Facility: [facility] Address: [address] [place] [address] Performed By: #### 2 4321-2 ####[facility] LABORATORYCLIA [id number] [address] [place] Creatinine [Mass/Vol] 0.61 mg/dL Normal 0.58-0.96 [facility] Comment on above: Order Comment: Speci men Type: BLOOD SPECIMENOrdering Facility: [facility] Address: [address] [place], [place] [id number] Performed By: #### 2 4321-2 ####REST[facility] LABORATORYCLIA [id number] [place] [id number] [place] [facility] ESTIMATED GLOMERULAR FILTRATION RATE 103 mL/min/1.73m??? Normal >=60 [facility] Comment on above: Order Comment: Speci men Type: BLOOD SPECIMENOrdering Facility: [facility] Address: [address] [place], [place] [id number] Result Comment: Abbie mated Glomerular Filtration Rate (eGFR) is calculated using the 2020 CKD-EPI creatinine equation. This equation utilizes serum creatinine, sex, and age as parameters. The creatinine assay has traceable calibration to isotope dilution-mass spectrometry. Refer to KDIGO guidelines for clinical interpretation. In patients with unstable renal function, e.g. those with acute kidney injury, the eGFR may not accurately reflect actual GFR. Performed By: #### 2 4321-2 ####[facility] LABORATORYCLIA [id number] [place] [id number] [place] Glucose [Mass/Vol] 100 mg/dL High 74-99 [facility] Comment on above: Order Comment: Rivka martin Type: BLOOD SPECIMENOrdering Facility: [facility] Address: [address] [place] [address] Result Comment: The [place] [employer] (ADA) provides guidance for cutoff values for fasting glucose and random glucose. The ADA defines fasting as no caloric intake for at least 8 hours. Fasting plasma glucose results between 100 to 125 mg/dL indicate increased risk for diabetes (prediabetes). Fasting plasma glucose results greater than or equal to 126 mg/dL meet the criteria for diagnosis of diabetes. In the absence of unequivocal hyperglycemia, results should be confirmed by repeat testing. In a patient with classic symptoms of hyperglycemia or hyperglycemic crisis, random plasma glucose results greater than or equal to 200 mg/dL meet the criteria for diagnosis of diabetes. Reference: Standards of Medical Care in Diabetes 2016, [place] [employer]. Diabetes Care. 2016.39(Suppl 1). Performed By: #### 2 4321-2 ####REST[facility] LABORATORYCLIA [id number] [place] [id number] [place] Potassium [Moles/Vol] 3.8 mmol/L Normal 3.7-5.1 [facility] Comment on above: Order Comment: Rivka martin Type: BLOOD SPECIMENOrdering Facility: [facility] Address: [address] [place], [place] [address] Performed By: #### 2 4321-2 ####RESTORATIONISM LABORATORYCLIA [id number] [place] [id number] [place] Sodium [Moles/Vol] 140 mmol/L Normal 136-144 [facility] Comment on above: Order Comment: Speci men Type: BLOOD SPECIMENOrdering Facility: [facility] Address: [address] [place] [address] Performed By: #### 2 4321-2 ####RESTORATIONISM LABORATORYCLIA [id number] [address] [place] [address] STATES [facility] Urea nitrogen [Mass/Vol] 7 mg/dL Normal 7-21 [facility] Comment on above: Order Comment: Speci men Type: BLOOD SPECIMENOrdering Facility: [facility] Address: [address] [place] [address] Performed By: #### 2 4321-2 ####RESTORATIONISM LABORATORYCLIA [id number] [address] [place] [address] [place] CBC W Auto Differential pane l (Bld)on 05-26-2021 Basophils (Bld) [#/Vol] 10*3/uL Normal <0.11 [facility] Comment on above: Order Comment: Speci men Type: BLOOD SPECIMENOrdering Facility: [facility] Address: [address] [place] [address] Performed By: #### 5 7021-8 ####RESTORATIONISM LABORATORYCLIA [id number] [address] [place] [address] STATES [place] Basophils/100 WBC (Bld) 0.1 % Normal [facility] Comment on above: Order Comment: Speci men Type: BLOOD SPECIMENOrdering Facility: [facility] Address: [address] [place], [place] [address] Performed By: #### 5 7021-8 ####[facility]OR[facility]ISM LABORATORYCLIA [id number] [address] Differential cell count method Nom (Bld) Auto Normal [facility] Comment on above: Order Comment: Speci men Type: BLOOD SPECIMENOrdering Facility: [facility] Address: [address] Performed By: #### 5 7021-8 ####RESTORATIONISM LABORATORYCLIA [id number] [address] [place], [place] [address] [place] Eosinophils (Bld) [#/Vol] 0.07 10*3/uL Normal <0.46 [facility] Comment on above: Order Comment: Speci men Type: BLOOD SPECIMENOrdering Facility: [facility] Address: [address] [place] [address] Performed By: #### 5 7021-8 ####RESTORATIONISM LABORATORYCLIA [id number] [address] [place] [address] [place] Eosinophils/100 WBC (Bld) 1.0 % Normal [facility] Comment on above: Order Comment: Speci men Type: BLOOD SPECIMENOrdering Facility: [facility] Address: [address] [place] [address] Performed By: #### 5 7021-8 ####RESTORATIONISM LABORATORYCLIA [id number] [address] [place], [place] [address] [place] Erythrocyte distribution width (RBC) [Ratio] 13.5 % Normal 11.5-15.0 [facility] Comment on above: Order Comment: Speci men Type: BLOOD SPECIMENOrdering Facility: [facility] Address: [address] Performed By: #### 5 7021-8 ####RESTORATIONISM LABORATORYCLIA [id number] [address] [place], [place] [address] [facility] GI Hematocrit (Bld) [Volume fraction] 32.5 % Low 36.0-46.0 [facility] Comment on above: Order Comment: Speci men Type: BLOOD SPECIMENOrdering Facility: [facility] Address: [address] Performed By: #### 5 7021-8 ####RESTORATIONISM LABORATORYCLIA [id number] [address] Hemoglobin (Bld) [Mass/Vol] 10.4 g/dL Low 11.5-15.5 [facility] Comment on above: Order Comment: Speci men Type: BLOOD SPECIMENOrdering Facility: [facility] Address: [address] [place] [address] Performed By: #### 5 7021-8 ####RESTORATIONISM LABORATORYCLIA [id number] [address] [place] [address] STATES [facility] IMMATURE GRAN % 0.3 % Normal [facility] Comment on above: Order Comment: Speci men Type: BLOOD SPECIMENOrdering Facility: [facility] Address: [address] [place] [address] Performed By: #### 5 7021-8 ####RESTORATIONISM LABORATORYCLIA [id number] [address] [place] [address] STATES [facility] IMMATURE GRAN ABS <0.03 Normal <0.10 [facility] Comment on above: Order Comment: Speci men Type: BLOOD SPECIMENOrdering Facility: [facility] Address: [address] [place] [address] Performed By: #### 5 7021-8 ####RESTORATIONISM LABORATORYCLIA [id number] [address] [place] Lymphocytes (Bld) [#/Vol] 0.99 10*3/uL Low 1.00-4.00 [facility] Comment on above: Order Comment: Speci men Type: BLOOD SPECIMENOrdering Facility: [facility] Address: [address] [place] [address] Performed By: #### 5 7021-8 ####RESTORATIONISM LABORATORYCLIA [id number] [address] [place] [address] GI Lymphocytes/100 WBC (Bld) 14.4 % Normal [facility] Comment on above: Order Comment: Speci men Type: BLOOD SPECIMENOrdering Facility: [facility] Address: [address] [place] [address] Performed By: #### 5 7021-8 ####RESTORATIONISM LABORATORYCLIA [id number] [address] MCH (RBC) [Entitic mass] 28.5 pg Normal 26.0-34.0 [facility] Comment on above: Order Comment: Speci men Type: BLOOD SPECIMENOrdering Facility: [facility] Address: [address] [place] [address] Performed By: #### 5 7021-8 ####RESTORATIONISM LABORATORYCLIA [id number] [address] [place] [address] MCHC (RBC) [Mass/Vol] 32.0 g/dL Normal 30.5-36.0 [facility] Comment on above: Order Comment: Speci men Type: BLOOD SPECIMENOrdering Facility: [facility] Address: [address] [place] [address] Performed By: #### 5 7021-8 ####RESTORATIONISM LABORATORYCLIA [id number] [address] STATES [facility] MCV (RBC) [Entitic vol] 89.0 fL Normal 80.0-100.0 [facility] Comment on above: Order Comment: Speci men Type: BLOOD SPECIMENOrdering Facility: [facility] Address: [address] [place] [address] Performed By: #### 5 7021-8 ####RESTORATIONISM LABORATORYCLIA [id number] [address] Monocytes (Bld) [#/Vol] 0.77 10*3/uL Normal <0.87 [facility] Comment on above: Order Comment: Speci men Type: BLOOD SPECIMENOrdering Facility: [facility] Address: [address] [place] [address] Performed By: #### 5 7021-8 ####RESTORATIONISM LABORATORYCLIA [id number] [place] [address] [place] Monocytes/100 WBC (Bld) 11.2 % Normal [facility] Comment on above: Order Comment: Speci men Type: BLOOD SPECIMENOrdering Facility: [facility] Address: [address] [place] [address] Performed By: #### 5 7021-8 ####RESTORATIONISM LABORATORYCLIA [id number] [place] [address] [place] Neutrophils (Bld) [#/Vol] 5.00 10*3/uL Normal 1.45-7.50 [facility] Comment on above: Order Comment: Speci men Type: BLOOD SPECIMENOrdering Facility: [facility] Address: [address] [place] [address] Performed By: #### 5 7021-8 ####RESTORATIONISM LABORATORYCLIA [id number] [place] [address] [place] Neutrophils/100 WBC (Bld) 73.0 % Normal [facility] Comment on above: Order Comment: Speci men Type: BLOOD SPECIMENOrdering Facility: [facility] Address: [address] [place] [address] Performed By: #### 5 7021-8 ####RESTORATIONISM LABORATORYCLIA [id number] [place] [address] [place] Nucleated RBC (Bld) [#/Vol] 10*3/uL Normal <0.01 [facility] Comment on above: Order Comment: Speci men Type: BLOOD SPECIMENOrdering Facility: [facility] Address: [address] [place] [address] Performed By: #### 5 7021-8 ####RESTORATIONISM LABORATORYCLIA [id number] [place] [address] [place] Nucleated RBC/100 WBC (Bld) [Ratio] 0.0 /100 WBC Normal [facility] Comment on above: Order Comment: Speci men Type: BLOOD SPECIMENOrdering Facility: [facility] Address: [address] [place], [place] [address] Performed By: #### 5 7021-8 ####RESTORATIONISM LABORATORYCLIA [id number] [place] [address] [place] Platelet mean volume (Bld) [Entitic vol] 9.6 fL Normal 9.0-12.7 [facility] Comment on above: Order Comment: Speci men Type: BLOOD SPECIMENOrdering Facility: [facility] Address: [address] [place], [place] [address] Performed By: #### 5 7021-8 ####RESTORATIONISM LABORATORYCLIA [id number] [place] [address] [place] Platelets (Bld) [#/Vol] 294 10*3/uL Normal 150-400 [facility] Comment on above: Order Comment: Speci men Type: BLOOD SPECIMENOrdering Facility: [facility] Address: [address] [place], [place] [address] Performed By: #### 5 7021-8 ####RESTORATIONISM LABORATORYCLIA [id number] [place] [address] [place] RBC (Bld) [#/Vol] 3.65 10*6/uL Low 3.90-5.20 [facility] Comment on above: Order Comment: Speci men Type: BLOOD SPECIMENOrdering Facility: [facility] Address: [address] [place], [place] [address] Performed By: #### 5 7021-8 ####RESTORATIONISM LABORATORYCLIA [id number] [place] [address] [place] WBC (Bld) [#/Vol] 6.86 10*3/uL Normal 3.70-11.00 [facility] Comment on above: Order Comment: Speci men Type: BLOOD SPECIMENOrdering Facility: [facility] Address: [address] [place], [place] [address] Performed By: #### 5 7021-8 ####[facility] [id number] [address] THERAPY NTon 05-26-2021 THERAPY NT HNO ID: [id number] Author: Corey Charles PTA Service: Physical Therapy Author Type: Bell Ringer Type: Therapy (PT/OT/Speech/Resp) Filed: 05/26/2021 5:46 PM Note Text: -------- Attestation signed by Jayashree Jacques PT at 05/27/2021 1:47 PM I reviewed and agree with the documentation corresponding to this therapy visit. SIGNATURE: Jayashree Jacques PT DATE: May 27, 2021 TIME: 1:47 PM -------- Physical Therapy Treatment SERVICE DATE: 05/26/2021 SERVICE TIME: 1240 to 1310 ROOM: [place] [address] Recommended Discharge Disposition: Home Anticipated Discharge Needs: Physical Assist at Home Physical Assist at Home for: Cleaning;Laundry;Stairs; Self Care;Shopping;Transporta tion Recommended Discharge Equipment: Wheeled Walker PT 6 Clicks Score: 23 Precautions/Activity Restrictions: Spine Current Hospital Course: Admit from home s/p L4-5 laminectomy 05/22/2021 Reason for Hospital Admission: spinal stenosis, spondylolisthesis L4-5 Relevant Past Medical History: right rotator cuff repair, bilateral TKA Physical Therapy Problem List: Education Deficit;Edema;Pain;Safet y Deficits;Impaired Self Care;Decreased Activity Tolerance;Decreased Range Of Motion;Decreased Strength;Functional Mobility Impairment;Balance Impaired Treatment Interventions: Education;Energy Conservation Training;Joint Mobility;Strengthening;F unctional Mobility Training;Balance Training;Edema Management;Pain Management Modalities: Ice Home Environment Patient Lives With: Spouse Assistance Available: 24 Hour Entry To Home: Stairs;With Rail Number Of Stairs Into Home: 4 Number Of Stairs To Bed/Bath: 12 Stairs to Bed/Bath with: Unilateral Rail Tub/Shower Type: walk in shower with seat Laundry: completes Equipment Owned: Marine Animal Trainer;Long Handled Sponge;Hand Held Shower (front wheeled walker on order) Prior Functional Level: Within Functional Limits;Required Assistance Assistance Required With: Cleaning;Laundry;Meals;S tairs;Self Care;Shopping;Transporta tion Prior Functional Level Comments: Patient reports she was independent with 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 CURRENT FUNCTIONAL STATUS: Most recent performance Current Functional Mobility Assist Level Additional Information Rolling Supervision Supine to Sit Supervision Sit to Supine Minimal Assistance Scooting Supervision Sit to Stand Supervision Stand to Sit Supervision Bed to Chair Supervision Bed To Chair Transfer Type: Stepping Bed To Chair Transfer Equipment: Wheeled Walker Toilet/Commode Supervision Gait Supervision Gait Device: Wheeled Walker Gait Distance (feet): 300 Stairs Stand By Assistance Stairs Device: Cane;Rail (also practised with B hands on rail) Number of Stairs: 6 Curb Step Car Transfer Blank leonardo indicate activity not attempted General Deviations/Observations: Antalgic gait;Jorge decreased;Flexed trunk posture;Lateral sway increased Balance: Dynamic Standing Static Standing Balance: Good Patient able to maintain balance without handhold support, limited postural sway Dynamic Standing Balance: Fair Patient accepts minimal challenge, able to maintain balance while turning head/trunk Activity Tolerance: Standing Activity Standing Activity: tolerated increased activity, mobility this afternoon -M: 8: Walk 250 feet or more Learning/Educational Needs: Discharge Plan;Family Education/Training;Funct ional Activities/Mobility;Pain Management;Precautions;P T In-Hospital Exercise Program;Safety;Rehabilit ation Techniques and Procedures Goals for Plan of Care: Patient /Caregiver Goals: Walk;Go Home Goals: Patient will demonstrate progress with functional mobility to allow safe discharge to home with available support and/or physical assistance. Progress Toward Goals: Progressing as expected Rehab Potential: Good Patient will be discontinued from Physical Therapy when no further skilled needs are identified in this setting. PLAN: PT Frequency: Once daily Plan of Care developed with: Patient TREATMENT INTERVENTIONS: Therapy Diagnosis: Reduced mobility-other Interventions Provided: Therapeutic Exercise (77962);Gait Training (24522) Therapeutic Exercise (61501) Treatment Minutes: 15 $ Therapeutic Exercise (08259) Billed Units: 1 unit Gait Training (41396) Treatment Minutes: 15 $ Gait Training (45907) Billed Units: 1 unit Timed Code Treatment (minutes): 30 Skilled Treatment Time (minutes): 30 Please see discipline specific clinical documentation flowsheet for complete details for this therapy evaluation/treatment. SIGNATURE: Corey Charles PTA PATIENT NAME: Paola Jacobo DATE: May 26, 2021 TIME: 5:[address] [facility] 05-25-2021 ALLIED HEALTH HNO ID: [id number] Author: RT Moshe(Yordy) Service: Radiology Author Type: Crab Fisherman Type: Allied Health Filed: 05/25/2021 5:10 PM Note Text: Radiology Service Progress Note PATIENT NAME: Paola Jacobo DATE OF SERVICE: May 25, 2021 TIME: 5:10 PM PATIENT IDENTITY VERIFICATION COMPLETED USING TWO (2) IDENTIFIERS: Name and Date of confirmed by patient verbally and Name and Date of confirmed by identification band. FALL SCREENING: Has the patient had 2 falls in the last year or 1 fall with injury or currently using an Ambulatory Assistive Device (Walker, Cane, Wheelchair, Crutches, etc.)? Inpatient: Screened on floor PATIENT GENDER DATA: Female. status: : No status: N/A PATIENT RELEVANT IMPLANT DATA REVIEWED: Not Applicable RADIOLOGY DEPARTMENT: General X-ray: Exam(s) Completed: Abdomen X-Ray: Abdomen PERIPHERAL IV DATA: Not applicable SIGNED BY: RT Moshe(R) May 25, 2021 5:10 PM [facility] Basic metabolic 2000 panelon 05-25-2021 Anion gap [Moles/Vol] 11 mmol/L Normal -18 [facility] Comment on above: Order Comment: Speci men Type: BLOOD SPECIMENOrdering Facility: [facility] Address: [address] [place] [address] Performed By: #### 2 4321-2 ####RESTORATIONISM LABORATORYCLIA [id number] [address] [place], [place] [address] [place] Calcium [Mass/Vol] 8.3 mg/dL Low 8.5-10.2 [facility] Comment on above: Order Comment: Speci men Type: BLOOD SPECIMENOrdering Facility: [facility] Address: [address] [place] [address] Performed By: #### 2 4321-2 ####RESTORATIONISM LABORATORYCLIA [id number] [address] [place] [address] [place] Chloride [Moles/Vol] 104 mmol/L Normal 97-105 [facility] Comment on above: Order Comment: Speci men Type: BLOOD SPECIMENOrdering Facility: [facility] Address: [address] [place] [address] Performed By: #### 2 4321-2 ####RESTORATIONISM LABORATORYCLIA [id number] [place] [address] [place] CO2 [Moles/Vol] 28 mmol/L Normal 22-30 [facility] Comment on above: Order Comment: Speci men Type: BLOOD SPECIMENOrdering Facility: [facility] Address: [address] [place] [address] Performed By: #### 2 4321-2 ####RESTORATIONISM LABORATORYCLIA [id number] [place] [address] [place] Creatinine [Mass/Vol] 0.71 mg/dL Normal 0.58-0.96 [facility] Comment on above: Order Comment: Speci men Type: BLOOD SPECIMENOrdering Facility: [facility] Address: [address] [place] [address] Performed By: #### 2 4321-2 ####RESTORATIONISM LABORATORYCLIA [id number] [address] [place], [place] [address] [place] ESTIMATED GLOMERULAR FILTRATION RATE 98 mL/min/1.73m??? Normal >=60 [facility] Comment on above: Order Comment: Rivka martin Type: BLOOD SPECIMENOrdering Facility: [facility] Address: [address] [place] [address] Result Comment: Abbie mated Glomerular Filtration Rate (eGFR) is calculated using the 2020 CKD-EPI creatinine equation. This equation utilizes serum creatinine, sex, and age as parameters. The creatinine assay has traceable calibration to isotope dilution-mass spectrometry. Refer to KDIGO guidelines for clinical interpretation. In patients with unstable renal function, e.g. those with acute kidney injury, the eGFR may not accurately reflect actual GFR. Performed By: #### 2 4321-2 ####RESTORATIONISM LABORATORYCLIA [id number] [place] [address] [place] Glucose [Mass/Vol] 92 mg/dL Normal 74-99 [facility] Comment on above: Order Comment: Rivka martin Type: BLOOD SPECIMENOrdering Facility: [facility] Address: [address] [place] [address] Result Comment: The [place] Diabetes Association (ADA) provides guidance for cutoff values for fasting glucose and random glucose. The ADA defines fasting as no caloric intake for at least 8 hours. Fasting plasma glucose results between 100 to 125 mg/dL indicate increased risk for diabetes (prediabetes). Fasting plasma glucose results greater than or equal to 126 mg/dL meet the criteria for diagnosis of diabetes. In the absence of unequivocal hyperglycemia, results should be confirmed by repeat testing. In a patient with classic symptoms of hyperglycemia or hyperglycemic crisis, random plasma glucose results greater than or equal to 200 mg/dL meet the criteria for diagnosis of diabetes. Reference: Standards of Medical Care in Diabetes 2016, [place] Diabetes Association. Diabetes Care. 2016.39(Suppl 1). Performed By: #### 2 4321-2 ####RESTORATIONISM LABORATORYCLIA [id number] [place] [address] [place] Potassium [Moles/Vol] 4.0 mmol/L Normal 3.7-5.1 [facility] Comment on above: Order Comment: Rivka martin Type: BLOOD SPECIMENOrdering Facility: [facility] Address: [address] Performed By: #### 2 4321-2 ####RESTORATIONISM LABORATORYCLIA [id number] [address] [place] [address] Sodium [Moles/Vol] 143 mmol/L Normal 136-144 [facility] Comment on above: Order Comment: Speci men Type: BLOOD SPECIMENOrdering Facility: [facility] Address: [address] [place] [address] Performed By: #### 2 4321-2 ####RESTORATIONISM LABORATORYCLIA [id number] [address] [place] [address] STATES [facility] Urea nitrogen [Mass/Vol] 10 mg/dL Normal 7-21 [facility] Comment on above: Order Comment: Speci men Type: BLOOD SPECIMENOrdering Facility: [facility] Address: [facility] [place] [address] Performed By: #### 2 4321-2 ####RESTORATIONISM LABORATORYCLIA [id number] [address] [place] [address] [place] CBC W Auto Differential pane l (Bld)on 05-25-2021 Basophils (Bld) [#/Vol] 0.03 10*3/uL Normal <0.11 [facility] Comment on above: Order Comment: Speci men Type: BLOOD SPECIMENOrdering Facility: [facility] Address: [address] Performed By: #### 5 7021-8 ####RESTORATIONISM LABORATORYCLIA [id number] [address] [place], [place] [address] [place] [facility] Basophils/100 WBC (Bld) 0.4 % Normal [facility] Comment on above: Order Comment: Speci men Type: BLOOD SPECIMENOrdering Facility: [facility] Address: [address] [place] [address] Performed By: #### 5 7021-8 ####RESTORATIONISM LABORATORYCLIA [id number] [address] [place] Differential cell count method Nom (Bld) Auto Normal [facility] Comment on above: Order Comment: Speci men Type: BLOOD SPECIMENOrdering Facility: [facility] Address: [address] [place] [address] Performed By: #### 5 7021-8 ####RESTORATIONISM LABORATORYCLIA [id number] [place] [address] [place] Eosinophils (Bld) [#/Vol] 0.06 10*3/uL Normal <0.46 [facility] Comment on above: Order Comment: Speci men Type: BLOOD SPECIMENOrdering Facility: [facility] Address: [address] [place] [address] Performed By: #### 5 7021-8 ####RESTORATIONISM LABORATORYCLIA [id number] [place] [address] [place] Eosinophils/100 WBC (Bld) 0.7 % Normal [facility] Comment on above: Order Comment: Speci men Type: BLOOD SPECIMENOrdering Facility: [facility] Address: [address] [place] [address] Performed By: #### 5 7021-8 ####RESTORATIONISM LABORATORYCLIA [id number] [address] [place] OF [place] Erythrocyte distribution width (RBC) [Ratio] 13.8 % Normal 11.5-15.0 [facility] Comment on above: Order Comment: Speci men Type: BLOOD SPECIMENOrdering Facility: [facility] Address: [address] [place] [address] Performed By: #### 5 7021-8 ####RESTORATIONISM LABORATORYCLIA [id number] [place] [address] [place] Hematocrit (Bld) [Volume fraction] 35.4 % Low 36.0-46.0 [facility] Comment on above: Order Comment: Speci men Type: BLOOD SPECIMENOrdering Facility: [facility] Address: [address] [place] [address] Performed By: #### 5 7021-8 ####RESTORATIONISM LABORATORYCLIA [id number] [address] [place] [address] [place] Hemoglobin (Bld) [Mass/Vol] 11.3 g/dL Low 11.5-15.5 [facility] Comment on above: Order Comment: Speci men Type: BLOOD SPECIMENOrdering Facility: [facility] Address: [address] [place] [address] Performed By: #### 5 7021-8 ####RESTORATIONISM LABORATORYCLIA [id number] [address] [place] [address] STATES [facility] IMMATURE GRAN % 0.5 % Normal [facility] Comment on above: Order Comment: Speci men Type: BLOOD SPECIMENOrdering Facility: [facility] Address: [address] [place] [address] Performed By: #### 5 7021-8 ####RESTORATIONISM LABORATORYCLIA [id number] [address] STATES GI IMMATURE GRAN ABS 0.04 k/uL Normal <0.10 [facility] Comment on above: Order Comment: Speci men Type: BLOOD SPECIMENOrdering Facility: [facility] Address: [address] [place] [address] Performed By: #### 5 7021-8 ####RESTORATIONISM LABORATORYCLIA [id number] [place] [address] [place] Lymphocytes (Bld) [#/Vol] 1.81 10*3/uL Normal 1.00-4.00 [facility] Comment on above: Order Comment: Speci men Type: BLOOD SPECIMENOrdering Facility: [facility] Address: [address] [place] [address] Performed By: #### 5 7021-8 ####RESTORATIONISM LABORATORYCLIA [id number] [place] [address] [place] Lymphocytes/100 WBC (Bld) 21.7 % Normal [facility] Comment on above: Order Comment: Speci men Type: BLOOD SPECIMENOrdering Facility: [facility] Address: [address] [place] [address] Performed By: #### 5 7021-8 ####RESTORATIONISM LABORATORYCLIA [id number] [address] STATES [facility] MCH (RBC) [Entitic mass] 28.8 pg Normal 26.0-34.0 [facility] Comment on above: Order Comment: Speci men Type: BLOOD SPECIMENOrdering Facility: [facility] Address: [address] [place] [address] Performed By: #### 5 7021-8 ####RESTORATIONISM LABORATORYCLIA [id number] [address] [place] MCHC (RBC) [Mass/Vol] 31.9 g/dL Normal 30.5-36.0 [facility] Comment on above: Order Comment: Speci men Type: BLOOD SPECIMENOrdering Facility: [facility] Address: [address] [place] [address] Performed By: #### 5 7021-8 ####RESTORATIONISM LABORATORYCLIA [id number] [address] [place] MCV (RBC) [Entitic vol] 90.1 fL Normal 80.0-100.0 [facility] Comment on above: Order Comment: Speci men Type: BLOOD SPECIMENOrdering Facility: [facility] Address: [address] [place] [address] Performed By: #### 5 7021-8 ####RESTORATIONISM LABORATORYCLIA [id number] [place] [address] [place] Monocytes (Bld) [#/Vol] 0.93 10*3/uL High <0.87 [facility] Comment on above: Order Comment: Speci men Type: BLOOD SPECIMENOrdering Facility: [facility] Address: [address] Performed By: #### 5 7021-8 ####RESTORATIONISM LABORATORYCLIA [id number] [place] [address] [place] Monocytes/100 WBC (Bld) 11.1 % Normal [facility] Comment on above: Order Comment: Speci men Type: BLOOD SPECIMENOrdering Facility: [facility] Address: [address] Performed By: #### 5 7021-8 ####RESTORATIONISM LABORATORYCLIA [id number] [place] [address] [place] Neutrophils (Bld) [#/Vol] 5.49 10*3/uL Normal 1.45-7.50 [facility] Comment on above: Order Comment: Speci men Type: BLOOD SPECIMENOrdering Facility: [facility] Address: [address] Performed By: #### 5 7021-8 ####RESTORATIONISM LABORATORYCLIA [id number] [place] [address] [place] Neutrophils/100 WBC (Bld) 65.6 % Normal [facility] Comment on above: Order Comment: Speci men Type: BLOOD SPECIMENOrdering Facility: [facility] Address: [address] Performed By: #### 5 7021-8 ####RESTORATIONISM LABORATORYCLIA [id number] [place] [address] [place] Nucleated RBC (Bld) [#/Vol] 10*3/uL Normal <0.01 [facility] Comment on above: Order Comment: Speci men Type: BLOOD SPECIMENOrdering Facility: [facility] Address: [address] Performed By: #### 5 7021-8 ####RESTORATIONISM LABORATORYCLIA [id number] [address] [place], [place] [id number] [place] Nucleated RBC/100 WBC (Bld) [Ratio] 0.0 /100 WBC Normal [facility] Comment on above: Order Comment: Speci men Type: BLOOD SPECIMENOrdering Facility: [facility] Address: [address] [place] [address] Performed By: #### 5 7021-8 ####RESTORATIONISM LABORATORYCLIA [id number] [place] [address] [place] Platelet mean volume (Bld) [Entitic vol] 9.3 fL Normal 9.0-12.7 [facility] Comment on above: Order Comment: Speci men Type: BLOOD SPECIMENOrdering Facility: [facility] Address: [address] [place] [address] Performed By: #### 5 7021-8 ####RESTORATIONISM LABORATORYCLIA [id number] [place] [address] [place] Platelets (Bld) [#/Vol] 288 10*3/uL Normal 150-400 [facility] Comment on above: Order Comment: Speci men Type: BLOOD SPECIMENOrdering Facility: [facility] Address: [address] [place] [address] Performed By: #### 5 7021-8 ####RESTORATIONISM LABORATORYCLIA [id number] [place] [address] [place] RBC (Bld) [#/Vol] 3.93 10*6/uL Normal 3.90-5.20 [facility] Comment on above: Order Comment: Speci men Type: BLOOD SPECIMENOrdering Facility: [facility] Address: [address] [place] [address] Performed By: #### 5 7021-8 ####RESTORATIONISM LABORATORYCLIA [id number] [place] [address] [place] WBC (Bld) [#/Vol] 8.36 10*3/uL Normal 3.70-11.00 [facility] Comment on above: Order Comment: Speci men Type: BLOOD SPECIMENOrdering Facility: [facility] Address: [address] [place] [address] Performed By: #### 5 7021-8 ####RESTORATIONISM LABORATORYCLIA [id number] [address] [place] [address] CNDSon 05-25-2021 CNDS HNO ID: [id number] Author: Radha Fuentes APRN.ELECTION ASSISTANT Service: Hospital Medicine Author Type: Nurse Practitioner Type: Discharge Summary Filed: 05/25/2021 1:33 PM Note Text: -------- Attestation signed by May Richardson MD at 05/27/2021 10:50 AM May Richardson MD -------- DISCHARGE SUMMARY [facility] PATIENT NAME: Paola Jacobo ADMISSION DATE: 05/22/2021 DISCHARGE DATE: 05/25/2021 Attending Physician: May Richardson MD PCP: Ion Mccabe DO [phone] Code Status: Not on file Discharged Against Medical Advice? No Highest Readmission Risk Score: 13 The 30 day readmissions risk score is derived from an internally validated risk model which evaluates patient level characteristics, utilization history, medication orders and lab results up until the day of discharge. Patients with a score of 40 or above are considered highest risk for readmission. Specific patient level drivers will be listed at the bottom of the summary. The 30 day readmissions risk score is derived from an internally validated risk model which evaluates patient level characteristics, utilization history, medication orders and lab results up until the day of discharge. Patients with a score of 40 or above are considered highest risk for readmission. Specific patient level drivers will be listed at the bottom of the summary HPI: Presented to [facility] on 05/22/2021 for elective spine surgery: L4-5 laminectomy and TLIF. Admitted post operatively to orthopedic floor for pain control and therapy. Pain was controlled post operatively with dilaudid FUNCTIONAL MENTAL DISABILITY TEACHER and then transitioned to oxycodone, tylenol, robaxin, and neurontin. FUNCTIONAL MENTAL DISABILITY TEACHER was discontinued POD 1. CHENCHO drain was removed POD 2 without complications. Seen by PT/OT who recommended discharge home without need for further therapy. Plan to follow up with Dr. Richardson 06/03/2021. All discharge questions answered. Transitions of Care Critical Issues: SPECIALIST FOLLOW-UP: Dr. Richardson LABS AND PROCEDURES PENDING AT DISCHARGE: No pending results. Operations During Hospitalization: 05/22/2021: L4-5 laminectomy and TLIF Operative Duration: 5 Hr 12 Min 20 Sec Implants Used for Surgery: Implant Name Type Inv. Item Serial No. Video Game Engineer Lot No. LRB No. Used Action PROLIFT EXPANDABLE SPACER 10MM X 28MM X 8-13MM 7DEG [id number] N/A 1 Implanted SCREW NABIL 3 TITANIUM SET DIXON SPINE - [id number] Implant SCREW NABIL 3 TITANIUM SET DIXON SPINE ROSSI SPINE N/A 4 Implanted SCREW NABIL 3 CONWAY 6.5MM 45MM BONE POLYAXIAL NONSTERILE SPINE - [id number] Screw SCREW NABIL 3 CONWAY 6.5MM 45MM BONE POLYAXIAL NONSTERILE SPINE ROSSI SPINE N/A 2 Implanted SCREW NABIL 3 CONWAY 6.5MM 50MM BONE POLYAXIAL NONSTERILE SPINE - [id number] Screw SCREW NABIL 3 CONWAY 6.5MM 50MM BONE POLYAXIAL NONSTERILE SPINE ROSSI SPINE N/A 2 Implanted TESS NABIL 3 6MM TITANIUM 35MM SPINAL RADIOLUCENT - [id number] Tess TESS NABIL 3 6MM TITANIUM 35MM SPINAL RADIOLUCENT ROSSI SPINE N/A 2 Implanted Surgical Specimens: * No specimens in log * Incision/Procedure Start Time: 4:02 PM Incision Close/Procedure End Time: 7:57 PM Surgeon(s) and Role: * May Richardson MD - Primary Transport Operations Inspector: Mary Gold RN Transport Operations Inspector (Relief): Jalil Covarrubias, ALFREDA; Smitha Olivo, ALFREDA; Tobin Cat RN Physician Senior Data Analyst: Emely Bonilla PA-C Barrel Centerer: Luciana Moon RRT Scrub Person: ST Prema Scrub Person (Relief): ST Gen Procedures During Hospitalization: as above Hospital Course: No notes on file Active Hospital Problems as of 05/25/2021 Noted - Resolved POA Hospital * (Principal) S/P lumbar fusion 05/23/2021 - Present Unknown S/P lumbar spinal fusion 05/23/2021 - Present Yes Resolved Hospital Problems as of 05/25/2021 None The patient was discharged on POD # 3 Days Post-Op in stable condition. Complete and comprehensive discharge instructions were provided to the patient as well as necessary prescriptions. The patient had no further questions and was advised to call with any questions, concerns, or problems. Consulting Teams During Hospitalization: Dr. Nicole for medical management Treatment Team: Attending Provider: May Richardson MD Consulting: Rebeca Nicole MD Patient's pain was well controlled with Oral Pain Medications. Physical Therapy was started on POD # 1. Patient progressed satisfactorily through physical therapy until discharge. Based upon the appropriate milestones the patient met during the hospital course, Physical Therapy recommended patient be discharged to home . Relevant labs included: CBC: Recent Labs 05/25/21 0445 05/24/21 0300 WBC 8.36 8.48 HB 11.3* 10.8* HCT 35.4* 33.8* PLT 288 272 MCV 90.1 90.1 RDWCV 13.8 14.0 NEUTP 65.6 62.3 (more content not included)... [facility] NURSING PROGon 05-25-2021 NURSING PROG HNO ID: [id number] Author: Avis James RN Service: ? Author Type: Registered Nurse Type: Nursing Progress Note Filed: 05/25/2021 8:23 PM Note Text: Nursing Progress Note Patient Name: Paola Jacobo Patient Location: [address]/[id number]- Event(s) / Intervention Note: Assumed care of this patient at 1900. VSS. Patient stating she feels better after having gone to the bathroom a few times after enema. Island dressing looks clean, dry, intact. IV WNL. Patient medicated per eMar. Patient denies any needs at this time. This note was completed by: Avis James [facility] NURSING PROG HNO ID: [id number] Author: Diana Reid RN Service: Nursing Author Type: Registered Nurse Type: Nursing Progress Note Filed: 05/25/2021 5:44 PM Note Text: Nursing Progress Note Patient Name: Paola Jacobo Patient Location: [address]- Daily Note:1715 - Very minimal result from Fleets enema. Dr. Nicole notified. Received order for 1,000 ml soap subs enema. 1739 - Soap suds enema given. This note was completed by: Diana Reid [facility] NURSING PROG HNO ID: [id number] Author: Diana Reid RN Service: Nursing Author Type: Registered Nurse Type: Nursing Progress Note Filed: 05/25/2021 3:49 PM Note Text: Nursing Progress Note Patient Name: Paola Jacobo Patient Location: [address]/[id number]- Daily Note:Dr. Nicole notified of patient still being constipated after multiple laxatives given. Received order to hold discharge, KUB and GI consult and Fleets enema after x-ray done. This note was completed by: Diana Reid [facility] THERAPY NTon 05-25-2021 THERAPY NT HNO ID: [id number] Author: Corey Charles PTA Service: Physical Therapy Author Type: Bell Ringer Type: Therapy (PT/OT/Speech/Resp) Filed: 05/25/2021 3:07 PM Note Text: -------- Attestation signed by Jayashree Jacques PT at 05/27/2021 1:47 PM I reviewed and agree with the documentation corresponding to this therapy visit. SIGNATURE: Jayashree Jacques PT DATE: May 27, 2021 TIME: 1:47 PM -------- Physical Therapy Treatment SERVICE DATE: 05/25/2021 SERVICE TIME: 1135 to 1213 ROOM: [place] [address] Recommended Discharge Disposition: Home Anticipated Discharge Needs: Physical Assist at Home Physical Assist at Home for: Cleaning;Laundry;Stairs; Self Care;Shopping;Transporta tion Recommended Discharge Equipment: Wheeled Walker PT 6 Clicks Score: 23 Precautions/Activity Restrictions: Spine Current Hospital Course: Admit from home s/p L4-5 laminectomy 05/22/2021 Reason for Hospital Admission: spinal stenosis, spondylolisthesis L4-5 Relevant Past Medical History: right rotator cuff repair, bilateral TKA Response to Therapy Interventions: Good participation in activities, Improved tolerance for activity, On-track to achieve discharge goals Continue skilled needs due to: Functional mobility/skill impairments Physical Therapy Problem List: Education Deficit;Pain;Functional Mobility Impairment Treatment Interventions: Education;Energy Conservation Training;Strengthening;F unctional Mobility Training;Balance Training;Modalities;John a Management;Pain Management Modalities: Ice Home Environment Patient Lives With: Spouse Assistance Available: 24 Hour Entry To Home: Stairs;With Rail Number Of Stairs Into Home: 4 Number Of Stairs To Bed/Bath: 12 Stairs to Bed/Bath with: Unilateral Rail Tub/Shower Type: walk in shower with seat Laundry: completes Equipment Owned: Marine Animal Trainer;Long Handled Sponge;Hand Held Shower (front wheeled walker on order) Prior Functional Level: Within Functional Limits;Required Assistance Assistance Required With: Cleaning;Laundry;Meals;S tairs;Self Care;Shopping;Transporta tion Prior Functional Level Comments: Patient reports she was independent with 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 Patient Report: pt agreeable to PT session CURRENT FUNCTIONAL STATUS: Most recent performance Current Functional Mobility Assist Level Additional Information Rolling Supervision Supine to Sit Minimal Assistance Sit to Supine Minimal Assistance Scooting Supervision Sit to Stand Supervision Stand to Sit Supervision Bed to Chair Supervision Bed To Chair Transfer Type: Stepping Bed To Chair Transfer Equipment: Wheeled Walker Toilet/Commode Gait Supervision Gait Device: Wheeled Walker Gait Distance (feet): 250 Stairs Supervision Stairs Device: (B hands on rail) Number of Stairs: 6 Curb Step Car Transfer Blank leonardo indicate activity not attempted General Deviations/Observations: Antalgic gait;Lateral sway increased Balance: Dynamic Standing Static Standing Balance: Good Patient able to maintain balance without handhold support, limited postural sway Dynamic Standing Balance: Fair Patient accepts minimal challenge, able to maintain balance while turning head/trunk Activity Tolerance: Standing Activity Standing Activity: tolerated increased activity, mobility this afternoon -M: 8: Walk 250 feet or more Learning/Educational Needs: Discharge Plan;Functional Activities/Mobility;Pain Management;Plan of Care;Precautions;Rehabil itation Techniques and Procedures;Safety Goals for Plan of Care: Patient /Caregiver Goals: Walk;Go Home Goals: Patient will demonstrate progress with functional mobility to allow safe discharge to home with available support and/or physical assistance. Progress Toward Goals: Progressing as expected Rehab Potential: Good Patient will be discontinued from Physical Therapy when no further skilled needs are identified in this setting. PLAN: PT Frequency: Once daily Plan of Care developed with: Patient TREATMENT INTERVENTIONS: Therapy Diagnosis: Reduced mobility-other Interventions Provided: Therapeutic Exercise (08688);Therapeutic Activity (79527);Gait Training (64582) Therapeutic Exercise (22469) Treatment Minutes: 15 $ Therapeutic Exercise (09081) Billed Units: 1 unit Therapeutic Activity (03983) Treatment Minutes: 15 $ Therapeutic Activity (63339) Billed Units: 1 unit Gait Training (26887) Treatment Minutes: 8 $ Gait Training (06217) Billed Units: 1 unit Training AND education provided in: Anatomy and impact on deficits, Assistive device use, Bed mobility, Discharge planning, Edema management, Energy conservation, Exercise program, Falls prevention, Gait pattern, reduction of deviations, Lymphedema education on (more content not included)... [facility] XR ABDOMEN 1V SUPINEon 05-25 XR ABDOMEN 1V SUPINE * * *Final Report* * * DATE OF EXAM: May 25 2021 4:17PM TASHA 5289 - XR ABDOMEN 1V SUPINE / PROCEDURE REASON: Post-operative / post-procedure assessment, symptomatic * * * * Physician Interpretation * * * * EXAM TITLE: XR ABDOMEN 1V SUPINE EXAM DATE/TIME: 05/25/2021 4:17 PM COMPARISON: None. CLINICAL INDICATION/HISTORY: Postop. TECHNIQUE: Portable AP views of the abdomen are presented. FINDINGS: No abnormally dilated bowel loops identified. The study is inadequate for evaluation of free abdominal air. A few surgical clips seen in the right upper quadrant abdomen. The spine shows degenerative changes. Status post inferior lumbar spinal fusion. A row surgical starr visualized. IMPRESSION: Nonobstructive bowel gas. Liquid Sugar Melter: PSCB Transcribe Date/Time: May 25 2021 4:20P Dictated by : ALON VILLA MD This examination was interpreted and the report reviewed and electronically signed by: ALON VILLA MD on May 25 2021 4:22PM EST [id number] [facility] Basic metabolic 2000 panelon 05-24-2021 Anion gap [Moles/Vol] 7 mmol/L Low 9-18 [facility] Comment on above: Order Comment: Speci men Type: BLOOD SPECIMENOrdering Facility: [facility] Address: [address] [place] [address] Performed By: #### 2 4321-2 ####RESTORATIONISM LABORATORYCLIA [id number] [place] [id number] [place] Calcium [Mass/Vol] 8.6 mg/dL Normal 8.5-10.2 [facility] Comment on above: Order Comment: Speci men Type: BLOOD SPECIMENOrdering Facility: [facility] Address: [address] [place] [address] Performed By: #### 2 4321-2 ####RESTORATIONISM LABORATORYCLIA [id number] [place] [address] [place] Chloride [Moles/Vol] 104 mmol/L Normal 97-105 [facility] Comment on above: Order Comment: Speci men Type: BLOOD SPECIMENOrdering Facility: [facility] Address: [address] [place] [address] Performed By: #### 2 4321-2 ####RESTORATIONISM LABORATORYCLIA [id number] [place] [id number] [place] CO2 [Moles/Vol] 29 mmol/L Normal 22-30 [facility] Comment on above: Order Comment: Speci men Type: BLOOD SPECIMENOrdering Facility: [facility] Address: [address] [place], [place] [address] Performed By: #### 2 4321-2 ####RESTORATIONISM LABORATORYCLIA [id number] [place] [address] [place] Creatinine [Mass/Vol] 0.79 mg/dL Normal 0.58-0.96 [facility] Comment on above: Order Comment: Speci men Type: BLOOD SPECIMENOrdering Facility: [facility] Address: [address] [place], [place] [address] Performed By: #### 2 4321-2 ####RESTORATIONISM LABORATORYCLIA [id number] [place] [address] [place] ESTIMATED GLOMERULAR FILTRATION RATE 86 mL/min/1.73m??? Normal >=60 [facility] Comment on above: Order Comment: Rivka martin Type: BLOOD SPECIMENOrdering Facility: [facility] Address: [address] [place] [address] Result Comment: Abbie mated Glomerular Filtration Rate (eGFR) is calculated using the 2020 CKD-EPI creatinine equation. This equation utilizes serum creatinine, sex, and age as parameters. The creatinine assay has traceable calibration to isotope dilution-mass spectrometry. Refer to KDIGO guidelines for clinical interpretation. In patients with unstable renal function, e.g. those with acute kidney injury, the eGFR may not accurately reflect actual GFR. Performed By: #### 2 4321-2 ####RESTORATIONISM LABORATORYCLIA [id number] [place] [address] [place] Glucose [Mass/Vol] 93 mg/dL Normal 74-99 [facility] Comment on above: Order Comment: Rivka veronica Type: BLOOD SPECIMENOrdering Facility: [facility] Address: [address] [place] [address] Result Comment: The [place] Diabetes Association (ADA) provides guidance for cutoff values for fasting glucose and random glucose. The ADA defines fasting as no caloric intake for at least 8 hours. Fasting plasma glucose results between 100 to 125 mg/dL indicate increased risk for diabetes (prediabetes). Fasting plasma glucose results greater than or equal to 126 mg/dL meet the criteria for diagnosis of diabetes. In the absence of unequivocal hyperglycemia, results should be confirmed by repeat testing. In a patient with classic symptoms of hyperglycemia or hyperglycemic crisis, random plasma glucose results greater than or equal to 200 mg/dL meet the criteria for diagnosis of diabetes. Reference: Standards of Medical Care in Diabetes 2016, [place] Diabetes Association. Diabetes Care. 2016.39(Suppl 1). Performed By: #### 2 4321-2 ####RESTORATIONISM LABORATORYCLIA [id number] [place] [address] [place] Potassium [Moles/Vol] 4.1 mmol/L Normal 3.7-5.1 [facility] Comment on above: Order Comment: Speci men Type: BLOOD SPECIMENOrdering Facility: [facility] Address: [address] [place] [address] Performed By: #### 2 4321-2 ####RESTORATIONISM LABORATORYCLIA [id number] [address] Sodium [Moles/Vol] 140 mmol/L Normal 136-144 [facility] Comment on above: Order Comment: Speci men Type: BLOOD SPECIMENOrdering Facility: [facility] Address: [address] [place] [address] Performed By: #### 2 4321-2 ####RESTORATIONISM LABORATORYCLIA [id number] [address] Urea nitrogen [Mass/Vol] 13 mg/dL Normal 7-21 [facility] Comment on above: Order Comment: Speci men Type: BLOOD SPECIMENOrdering Facility: [facility] Address: [address] [place] [address] Performed By: #### 2 4321-2 ####RESTORATIONISM LABORATORYCLIA [id number] [place] [id number] [facility] CASE MANAGEMon 05-24-2021 CASE MANAGEM HNO ID: [id number] Author: Mary Elam RN Service: Care Management Author Type: Registered Nurse Type: Care Mgt Progress Note Filed: 05/24/2021 9:28 AM Note Text: MULTIDISCIPLINARY ROUNDS SERVICE DATE: 05/24/2021 ADMISSION DATE: 05/22/2021 SERVICE TIME: 9:27 AM ANTICIPATED D/C DATE: Today or tomorrow Problem List: ACTIVE PROBLEM LIST Osteoarthrosis, Unspecified Whether Generalized Or Localized, Lower Leg Other Affections of Shoulder Region, Not Elsewhere Classified Microscopic Hematuria Instability of Finger Joint Trigger Middle Finger of Right Hand Pain in Limb Localized Osteoarthrosis Not Specified Whether Primary Or Secondary, Hand Pain in Joint, Hand Adrenal Adenoma Adrenal Mass, Left (Hcc) Lumbar Hernia Status Post Total Bilateral Knee Replacement Hallux Valgus of Right Foot Hammer Toes of Both Feet Metatarsalgia of Right Foot Djd (Degenerative Joint Disease), Ankle and Foot, Right Rotator Cuff Tear Arthropathy, 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 O2 Therapy: Room Air Still has CHENCHO in place, if removed she may discharge later today Nursing: Risk for Infection Intervention(s) Plan: Assess and Administer Medications;Assess Vital Signs;Assess Signs/Symptom of Infection;Maintain Hand Hygiene;Monitor Labs and Cultures;Review Current Medication and Medication History and Administer Medications as Ordered Risk for Infection Goals/Outcomes: Patient Without Signs/Symptoms of Infections;Absence of bleeding, redness, or unusual swelling;Exhibits Increased Interest and Assume Responsibility for Patient's Own/Family Learning by Beginning to Look for Information and Ask Questions Risk For Infection Goal Target Achievement Date: 05/26/21 Knowledge Deficit Intervention(s) Plan: Encourage Verbalization of Questions and Concerns;Explain Scheduling and Routine of Care, Test and Procedures;Review Current Medication and Medication History and Administer Medications as Ordered Knowledge Deficit Goals/Outcomes: Participate in Learning Process;Verbalizes/Demon strates Knowledge and Understanding of Provided Instructions Knowledge Deficit Goal Target Achievement Date: 05/26/21 Pain Intervention(s) Plan: Pain Assessment, Management, Reassessment Per Scoring Tool;Provide Quiet and Restful Environment;Review Current Medication and Medication History and Administer Medications as Ordered;Utilize Pain Modalities Pain Goals/Outcomes: Decrease in Pain Level per Scoring Tool;Patient Verbalizes Acceptable Level of Comfort and is Able to Carry Out Activities of Daily Living Pain Goal Target Achievement Date: 05/26/21 Safety Intervention(s) Plan: Ensure Safe Positioning;Employ Safe Mobility;Maintain a Safe Environment Safety Goals/Outcomes: Exhibits Increased Interest and Assume Responsibility for Patient's Own/Family Learning by Beginning to Look for Information and Ask Questions;Maintain Patient Safety Safety Goal Target Achievement Date: 05/26/21Skin Intervention(s) Plan: Assess and Document Skin Condition per Protocol;Review Current Medication and Medication History and Administer Medications as Ordered Skin Goals/Outcomes: Exhibits Increased Interest and Assume Responsibility for Patient's Own/Family Learning by Beginning to Look for Information and Ask Questions;Patient's Skin Integrity Maintained or Improved Skin Goal Target Achievement Date: 05/26/21 DOCUMENTED BY: Mary Elam RN PATIENT NAME: Paola Jacobo DATE: May 24, 2021 TIME: 9:27 AM CSN: [id number] [facility] CBC W Auto Differential pane l (Bld)on 05-24-2021 Basophils (Bld) [#/Vol] 0.03 10*3/uL Normal <0.11 [facility] Comment on above: Order Comment: Speci men Type: BLOOD SPECIMENOrdering Facility: [facility] Address: [address] [place] [address] Performed By: #### 5 7021-8 ####RESTORATIONISM LABORATORYCLIA [id number] [address] [place] [address] Basophils/100 WBC (Bld) 0.4 % [facility] Comment on above: Order Comment: Speci men Type: BLOOD SPECIMENOrdering Facility: [facility] Address: [address] [place] [address] Performed By: #### 5 7021-8 ####RESTORATIONISM LABORATORYCLIA [id number] [address] [place] [address] Differential cell count method Nom (Bld) Auto [facility] Comment on above: Order Comment: Speci men Type: BLOOD SPECIMENOrdering Facility: [facility] Address: [address] [place] [address] Performed By: #### 5 7021-8 ####RESTORATIONISM LABORATORYCLIA [id number] [address] Eosinophils (Bld) [#/Vol] 0.04 10*3/uL Normal <0.46 [facility] Comment on above: Order Comment: Speci men Type: BLOOD SPECIMENOrdering Facility: [facility] Address: [address] [place] [address] Performed By: #### 5 7021-8 ####RESTORATIONISM LABORATORYCLIA [id number] [address] [place] [address] [place] Eosinophils/100 WBC (Bld) 0.5 % Normal [facility] Comment on above: Order Comment: Speci men Type: BLOOD SPECIMENOrdering Facility: [facility] Address: [address] [place] [address] Performed By: #### 5 7021-8 ####RESTORATIONISM LABORATORYCLIA [id number] [address] [place] [address] [place] Erythrocyte distribution width (RBC) [Ratio] 14.0 % Normal 11.5-15.0 [facility] Comment on above: Order Comment: Speci men Type: BLOOD SPECIMENOrdering Facility: [facility] Address: [address] [place] [address] Performed By: #### 5 7021-8 ####RESTORATIONISM LABORATORYCLIA [id number] [address] [place] [address] [place] Hematocrit (Bld) [Volume fraction] 33.8 % Low 36.0-46.0 [facility] Comment on above: Order Comment: Speci men Type: BLOOD SPECIMENOrdering Facility: [facility] Address: [address] [place] [address] Performed By: #### 5 7021-8 ####RESTORATIONISM LABORATORYCLIA [id number] [address] [place] [address] [place] Hemoglobin (Bld) [Mass/Vol] 10.8 g/dL Low 11.5-15.5 [facility] Comment on above: Order Comment: Speci men Type: BLOOD SPECIMENOrdering Facility: [facility] Address: [address] [place] [address] Performed By: #### 5 7021-8 ####RESTORATIONISM LABORATORYCLIA [id number] [address] [place] [address] IMMATURE GRAN % 0.2 % Normal [facility] Comment on above: Order Comment: Speci men Type: BLOOD SPECIMENOrdering Facility: [facility] Address: [address] [place] [address] Performed By: #### 5 7021-8 ####RESTORATIONISM LABORATORYCLIA [id number] [address] [place] [address] IMMATURE GRAN ABS <0.03 Normal <0.10 [facility] Comment on above: Order Comment: Speci men Type: BLOOD SPECIMENOrdering Facility: [facility] Address: [address] [place] [address] Performed By: #### 5 7021-8 ####RESTORATIONISM LABORATORYCLIA [id number] [address] [place] [address] [place] Lymphocytes (Bld) [#/Vol] 2.31 10*3/uL Normal 1.00-4.00 [facility] Comment on above: Order Comment: Speci men Type: BLOOD SPECIMENOrdering Facility: [facility] Address: [address] [place] [address] Performed By: #### 5 7021-8 ####RESTORATIONISM LABORATORYCLIA [id number] [address] Lymphocytes/100 WBC (Bld) 27.2 % Normal [facility] Comment on above: Order Comment: Speci men Type: BLOOD SPECIMENOrdering Facility: [facility] Address: [address] [place] [address] Performed By: #### 5 7021-8 ####RESTORATIONISM LABORATORYCLIA [id number] [place] [id number] [place] MCH (RBC) [Entitic mass] 28.8 pg Normal 26.0-34.0 [facility] Comment on above: Order Comment: Speci men Type: BLOOD SPECIMENOrdering Facility: [facility] Address: [address] [place] [address] Performed By: #### 5 7021-8 ####RESTORATIONISM LABORATORYCLIA [id number] [address] [place] [address] STATES [facility] MCHC (RBC) [Mass/Vol] 32.0 g/dL Normal 30.5-36.0 [facility] Comment on above: Order Comment: Speci men Type: BLOOD SPECIMENOrdering Facility: [facility] Address: [address] [place] [address] Performed By: #### 5 7021-8 ####RESTORATIONISM LABORATORYCLIA [id number] [address] [place] [address] MCV (RBC) [Entitic vol] 90.1 fL Normal 80.0-100.0 [facility] Comment on above: Order Comment: Speci men Type: BLOOD SPECIMENOrdering Facility: [facility] Address: [address] [place] [address] Performed By: #### 5 7021-8 ####RESTORATIONISM LABORATORYCLIA [id number] [address] STATES [facility] Monocytes (Bld) [#/Vol] 0.80 10*3/uL Normal <0.87 [facility] Comment on above: Order Comment: Speci men Type: BLOOD SPECIMENOrdering Facility: [facility] Address: [address] [place] [address] Performed By: #### 5 7021-8 ####RESTORATIONISM LABORATORYCLIA [id number] [address] Monocytes/100 WBC (Bld) 9.4 % Normal [facility] Comment on above: Order Comment: Speci men Type: BLOOD SPECIMENOrdering Facility: [facility] Address: [address] [place], [place] [id number] Performed By: #### 5 7021-8 ####RESTORATIONISM LABORATORYCLIA [id number] [address] [place] [address] GI Neutrophils (Bld) [#/Vol] 5.28 10*3/uL Normal 1.45-7.50 [facility] Comment on above: Order Comment: Speci men Type: BLOOD SPECIMENOrdering Facility: [facility] Address: [address] [place] [address] Performed By: #### 5 7021-8 ####RESTORATIONISM LABORATORYCLIA [id number] [address] [place] [address] [place] Neutrophils/100 WBC (Bld) 62.3 % Normal [facility] Comment on above: Order Comment: Speci men Type: BLOOD SPECIMENOrdering Facility: [facility] Address: [address] [place], [place] [id number] Performed By: #### 5 7021-8 ####RESTORATIONISM LABORATORYCLIA [id number] [address] [place] [address] [place] Nucleated RBC (Bld) [#/Vol] 10*3/uL Normal <0.01 [facility] Comment on above: Order Comment: Speci men Type: BLOOD SPECIMENOrdering Facility: [facility] Address: [address] [place], [place] [id number] Performed By: #### 5 7021-8 ####RESTORATIONISM LABORATORYCLIA [id number] [address] [place], [place] [id number] [place] Nucleated RBC/100 WBC (Bld) [Ratio] 0.0 /100 WBC Normal [facility] Comment on above: Order Comment: Speci men Type: BLOOD SPECIMENOrdering Facility: [facility] Address: [address] [place], [place] [address] Performed By: #### 5 7021-8 ####RESTORATIONISM LABORATORYCLIA [id number] [address] STATES [facility] Platelet mean volume (Bld) [Entitic vol] 9.6 fL Normal 9.0-12.7 [facility] Comment on above: Order Comment: Speci men Type: BLOOD SPECIMENOrdering Facility: [facility] Address: [address] [place] [address] Performed By: #### 5 7021-8 ####RESTORATIONISM LABORATORYCLIA [id number] [place] [address] [place] Platelets (Bld) [#/Vol] 272 10*3/uL Normal 150-400 [facility] Comment on above: Order Comment: Speci men Type: BLOOD SPECIMENOrdering Facility: [facility] Address: [address] [place] [address] Performed By: #### 5 7021-8 ####RESTORATIONISM LABORATORYCLIA [id number] [address] STATES [facility] RBC (Bld) [#/Vol] 3.75 10*6/uL Low 3.90-5.20 [facility] Comment on above: Order Comment: Speci men Type: BLOOD SPECIMENOrdering Facility: [facility] Address: [address] [place], [place] [address] Performed By: #### 5 7021-8 ####RESTORATIONISM LABORATORYCLIA [id number] [place] [id number] [place] WBC (Bld) [#/Vol] 8.48 10*3/uL Normal 3.70-11.00 [facility] Comment on above: Order Comment: Speci men Type: BLOOD SPECIMENOrdering Facility: [facility] Address: [address] [place], [place] [address] Performed By: #### 5 7021-8 ####RESTORATIONISM LABORATORYCLIA [id number] [place] [id number] [facility] CONSULT PROGon 05-24-2021 CONSULT PROG HNO ID: [id number] Author: Kirk Daniel PA-C Service: Pain Management Author Type: Physician Senior Data Analyst Type: Consult Progress Note Filed: 05/24/2021 9:15 AM Note Text: -------- Attestation signed by Ganesh Ibarra MD at 05/24/2021 5:54 PM Attending Note: Joseph findings confirmed. Discussed with the physician pediatric physical therapy assistant. Plan as outlined. Ganesh Ibarra MD May 24, 2021 5:54 PM -------- INPATIENT PAIN MANAGEMENT PROGRESS NOTE Patient Name: Paola Jacobo SERVICE DATE: May 24, 2021 SERVICE TIME: 9:14 AM PRIMARY SERVICE: Ortho and Spine Consult by Gab MICHAEL for acute post operative pain INTERVAL HPI: Is the patient having any pain? Yes LOCATION: lumbar PAIN SCALE: 5 on a scale of 0-10 PAIN CHARACTER: aching FREQUENCY: (How often does the pain occur?) occurs constantly 60 year old WF cc low back pain post spine surgery PERTINENT ROS: history of constipation denies fever, chills, diarrhea, nausea, vomiting, CP, SOB, weakness, numbness, tingling or loss of bladder bowel control Denies muscle tightness or spasms All other reviewed and negative other than HPI. PAST MEDICAL HISTORY Diagnosis Date - Adrenal adenoma - Fracture - Generalized osteoarthrosis, unspecified site General Osteoarthritis - Nonspecific abnormal results of liver function study SECONDARY TO MONONUCLEOSIS - Personal history of unspecified urinary disorder - Urinary tract infection, site not specified recurrent PAST SURGICAL HISTORY Procedure Laterality Date - ADRENALECTOMY 04/2012 left, robotic - ARTHROSCOPY, SHOULDER, SURGI 01/2010 Right - ARTHROSCOPY, SHOULDER, SURGI 08/2008 Left - ARTHRP LEXY CONDYLEANDPLATU MEDIALANDLAT COMPARTMENTS 09/07/2006 Right, DHARMESH, Tan Diaz MD - ARTHRP KNConner CONDYLEANDPLATU MEDIALANDLAT COMPARTMENTS 07/13/2007 Left, Tan BARROSO MD - BIOPSY OVARY UNI/BI SEPARATE PROCEDURE remote two dermoid cysts - CYSTOSCOPY,+URETEROSCOPY 05/2007 - OOPHORECTOMY PARTIAL/TOTAL UNI/BI mid left - PAST SURGICAL HISTORY OF 09/29/2003 Diagnostic flexible hysteroscopy, dilatation and curettage and ThermaChoice endometrial ablation - PAST SURGICAL HISTORY OF 2002 orif right ulna with plate and subsequent removal - PAST SURGICAL HISTORY OF 2005 Bilateral bunionectomies - PAST SURGICAL HISTORY OF 04/2008 bilateral toe surgery - PAST SURGICAL HISTORY OF 2006 right knee replacement - PAST SURGICAL HISTORY OF 07/2008 left hammertoe and neuroma - PAST SURGICAL HISTORY OF Right 2020 rotator cuff - TONSILLECTOMY HX - TOTAL ABDOMINAL HYSTERECT W/WO RMVL TUBE OVARY 03/2006 Hysterectomy, MUKUL FAMILY HISTORY Problem Relation Age of Onset - Breast Cancer Maternal Grandmother - Diabetes Mother adult onset - other (Bladder cancer) Father Social History Tobacco Use - Smoking status: Never Smoker - Smokeless tobacco: Never Used Vaping Use - Vaping Use: Never used Substance Use Topics - Alcohol use: Yes Comment: once per month - Drug use: Never MEDICATIONS: Current Facility-Administered Medications Medication Dose Route Frequency - Methenamine Hippurate 1 g tab(s) (HIPREX) 1 g ORAL BID w MEALS - gabapentin 800 mg cap(s) (NEURONTIN) 800 mg ORAL BID - pantoprazole DR 40 mg tab(s) (PROTONIX) 40 mg ORAL DAILY (6 AM) - methocarbamol 750 mg tab(s) (ROBAXIN) 750 mg ORAL TID PRN - ondansetron 4 mg tab(s) (ZOFRAN) 4 mg ORAL q 6 H PRN Or - ondansetron (PF) 4 mg injection (ZOFRAN) 4 mg INTRAVENOUS q 6 H PRN - NaCl 0.9% iv flush bag 20 mL INTRAVENOUS PRN - sodium chloride 0.9 % (flush) 3-5 mL (BD POSIFLUSH) 3-5 mL INTRAVENOUS q 12 H - bisacodyl 10 mg suppository (DULCOLAX) 10 mg RECTAL DAILY PRN - senna-docusate 8.6-50 mg 1 tablet (SENNA-S) 1 tablet ORAL BID PRN - diphenhydrAMINE 25 mg (BENADRYL) 25 mg ORAL q 4 H PRN - polyethylene glycol 3350 17 g packet (MIRALAX, GLYCOLAX) 17 g ORAL DAILY - acetaminophen 1,000 mg tab(s) (TYLENOL) 1,000 mg ORAL q 6 H - heparin 5,000 Units injection 5,000 Units SUBCUTANEOUS q 12 H - HYDROmorphone 0.5 mg injection (DILAUDID) 0.5 mg INTRAVENOUS q 3 H PRN - oxyCODONE IR 5-10 mg tab(s) (ROXICODONE) 5-10 mg ORAL q 3 H PRN - docusate sodium 100 mg cap(s) (COLACE) 100 mg ORAL BID PHYSICAL EXAM: Blood pressure 113/63, pulse 89, temperature 36.8 ?C (98.3 ?F), temperature source Oral, resp. rate 16, height 165.1 cm (5' 5 ), weight 86.2 kg (190 lb), last menstrual period 11/02/2004, SpO2 97 %. GENERAL: Alert, no distress, cooperative SKIN: Skin color, texture, turgor normal. No rashes or lesions. HEAD/SINUSES: No significant findings EYES: PERRLA, EOMI Heart: RRR without murmur, gallop, or rubs. No ectopy Lungs: lungs clear to auscultation no wheezing or rhonchi Abdomen: Abdomen soft, non-tender. Bowel sounds normal. No masses, (more content not included)... Normal [facility] NURSING PROGon 05-24-2021 NURSING PROG HNO ID: [id number] Author: Caty Angel RN Service: Nursing Author Type: Registered Nurse Type: Nursing Progress Note Filed: 05/24/2021 6:47 PM Note Text: Nursing Progress Note Patient Name: Paola Jacobo Patient Location: [place] [id number] Daily Note:family taking meds home This note was completed by: Caty Angel [facility] THERAPY NTon 05-24-2021 THERAPY NT HNO ID: [id number] Author: Angelica López, OTR/L Service: Occupational Therapy Author Type: Occupational Therapist Type: Therapy (PT/OT/Speech/Resp) Filed: 05/25/2021 9:23 AM Note Text: Occupational Therapy Evaluation SERVICE DATE: 05/24/2021 SERVICE TIME: 1525 to 1556 ROOM: [place] [address] Recommended Discharge Disposition: Home Recommended Discharge Disposition Comments: Pt cleared for DC to home with CG support from OT standpoint Anticipated Discharge Needs: Physical Assist at Home Physical Assist at Home for: Cleaning;Laundry;Stairs; Self Care;Shopping;Transporta tion OT 6 Clicks Score: 24 Precautions/Activity Restrictions: Spine;Lines/Tubes/Drains Current Hospital Course: Admit from home s/p L4-5 laminectomy 05/22/2021 Reason for Hospital Admission: spinal stenosis, spondylolisthesis L4-5 Relevant Past Medical History: right rotator cuff repair, bilateral TKA Response to Therapy Interventions: On-track to achieve discharge goals, Good participation in activities Occupational Therapy Problem List: Safety Deficits;Impaired Self Care;Functional Mobility Impairment Treatment Interventions: Self Care / Home Management Home Environment Patient Lives With: Spouse Assistance Available: 24 Hour Entry To Home: Stairs;With Rail Number Of Stairs Into Home: 4 Number Of Stairs To Bed/Bath: 12 Stairs to Bed/Bath with: Unilateral Rail Tub/Shower Type: walk in shower with seat Laundry: completes Equipment Owned: Marine Animal Trainer;Long Handled Sponge;Hand Held Shower (front wheeled walker on order) Prior Functional Level: Within Functional Limits;Required Assistance Assistance Required With: Cleaning;Laundry;Meals;S tairs;Self Care;Shopping;Transporta tion Prior Functional Level Comments: Patient reports 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 CURRENT FUNCTIONAL STATUS: Most recent performance Current Activities of Daily Living Assist Level Additional Information Feeding Independent Grooming Independent Bathing Upper Body Set Up Bathing Lower Body Modified Independent;Additional Information can perform figure 4 technique to wash lower legs Dressing Upper Body Independent Dressing Lower Body Modified Independent;Additional Information can perform figure 4 for lower body dressing or can use legal operations manager to don pants Toileting Modified Independent Instrumental Activities of Daily Living Assist Level Additional Information Meal/Beverage Prep Cleaning Laundry Medication Management with Strategies Functional Mobility Assist Level Additional Information Rolling Supine to Sit Sit to Supine Scooting Sit to Stand Modified Independent Stand to Sit Modified Independent Bed to Chair Toilet/Commode Shower Functional Mobility Blank leonardo indicate activity not attempted Learning/Educational Needs: Functional Activities/Mobility;Pain Management;Precautions;S afety;Self Care Goals for Plan of Care: Patient /Caregiver Goals: Go Home Goals: Patient will demonstrate progress to optimize self-care activities, cognitive and/or coping to maximize function upon discharge. Patient will be discontinued from Occupational Therapy when no further skilled needs are identified in this setting. PLAN: OT Frequency: PRN (as needed) Plan of Care developed with: Patient TREATMENT INTERVENTIONS: Therapy Diagnosis: Reduced mobility-other;Decreased activities of daily living (ADL) Interventions Provided: Evaluation;Self Long Term Management (90333) $ Evaluation-Low (74620) Billed Units: 1 unit Self Long Term Management (13779) Treatment Minutes: 16 $ Self Long Term Management (39609) Billed Units: 1 unit Training AND education provided in: Activity adaption / compensatory strategies, Assistive device use, Bed mobility, Lower extremity dressing, Lower extremity bathing, Pain management, Positioning, Precautions/restrictions , Role of Occupational Therapy, Transfer - Sit to stand, Transfer - Car The following therapeutic skills were used: Teach-back for education, Cuing visual, Cuing verbal, Cues for sequencing/proper technique for activity Timed Code Treatment (minutes): 16 Skilled Treatment Time (minutes): 31 Please see discipline specific clinical documentation flowsheet for complete details for this therapy evaluation/treatment. SIGNATURE: VIOLETA Kirkpatrick/Monserrat PATIENT NAME: Paola Jacobo DATE: May 24, 2021 TIME: 4:22 PM [facility] THERAPY NT HNO ID: [id number] Author: Jayashree Jacques PT Service: Physical Therapy Author Type: Physical Therapist Type: Therapy (PT/OT/Speech/Resp) Filed: 05/24/2021 11:42 AM Note Text: Physical Therapy Treatment SERVICE DATE: 05/24/2021 SERVICE TIME: 1055 to 1126 ROOM: [id number] Recommended Discharge Disposition: Home Anticipated Discharge Needs: Physical Assist at Home Physical Assist at Home for: Cleaning;Laundry;Meals;S hopping;Transportation Recommended Discharge Equipment: Wheeled Walker PT 6 Clicks Score: 22 Precautions/Activity Restrictions: Spine;Lines/Tubes/Drains Current Hospital Course: Admit from home s/p L4-5 laminectomy 05/22/2021 Reason for Hospital Admission: spinal stenosis, spondylolisthesis L4-5 Relevant Past Medical History: right rotator cuff repair, bilateral TKA Response to Therapy Interventions: Good participation in activities, On-track to achieve discharge goals, Pain Continue skilled needs due to: Functional mobility/skill impairments Physical Therapy Problem List: Education Deficit;Pain;Functional Mobility Impairment Treatment Interventions: Education;Functional Mobility Training;Modalities Modalities: Ice Plan for next visit: Bed mobility, Cane training, Gait training, Walker Training, Stairs training Home Environment Patient Lives With: Spouse Assistance Available: 24 Hour Entry To Home: Stairs;With Rail Number Of Stairs Into Home: 4 Number Of Stairs To Bed/Bath: 12 Stairs to Bed/Bath with: Unilateral Rail Laundry: completes Prior Functional Level: Within Functional Limits;Required Assistance Assistance Required With: Cleaning;Laundry;Meals;S tairs;Self Care;Shopping;Transporta tion Prior Functional Level Comments: Patient reports she was independent with 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 Patient Report: Patient mobilizing better this date. pain under control at this time. CURRENT FUNCTIONAL STATUS: Most recent performance Current Functional Mobility Assist Level Additional Information Rolling Stand By Assistance (with cues for safe technique) Supine to Sit Minimal Assistance Sit to Supine Minimal Assistance Scooting Stand By Assistance Sit to Stand Supervision Stand to Sit Supervision Bed to Chair Supervision Bed To Chair Transfer Type: Stepping Bed To Chair Transfer Equipment: Wheeled Walker Toilet/Commode Gait Stand By Assistance Gait Device: Wheeled Walker Gait Distance (feet): 250 feet x 2 Stairs Supervision Stairs Device: Rail (2 hands on 1 rail) Number of Stairs: 6 Curb Step Car Transfer Blank leonardo indicate activity not attempted General Deviations/Observations: Antalgic gait (improved jorge, reciprocal gait) Balance: Static Standing;Dynamic Standing Static Standing Balance: Good Patient able to maintain balance without handhold support, limited postural sway Dynamic Standing Balance: Fair Patient accepts minimal challenge, able to maintain balance while turning head/trunk Activity Tolerance: Standing Activity Standing Activity: tolerated increased activity, mobility this afternoon -HLM: 8: Walk 250 feet or more Learning/Educational Needs: Discharge Plan;Functional Activities/Mobility;Pain Management;Plan of Care;Precautions;PT In-Hospital Exercise Program;Rehabilitation Techniques and Procedures Goals for Plan of Care: Patient /Caregiver Goals: Go Home Goals: Patient will demonstrate progress with functional mobility to allow safe discharge to home with available support and/or physical assistance. Progress Toward Goals: Progressing as expected Rehab Potential: Good Patient will be discontinued from Physical Therapy when no further skilled needs are identified in this setting. PLAN: PT Frequency: Once daily Plan of Care developed with: Patient TREATMENT INTERVENTIONS: Therapy Diagnosis: Reduced mobility-other Interventions Provided: Therapeutic Activity (72336);Gait Training (44940) Therapeutic Activity (25202) Treatment Minutes: 11 $ Therapeutic Activity (37320) Billed Units: 1 unit Gait Training (21840) Treatment Minutes: 15 $ Gait Training (15526) Billed Units: 1 unit Training AND education provided in: Anatomy and impact on deficits, Assistive device use, Bed mobility, Benefits of in-hospital mobility, Discharge planning, Expected functional level, Gait pattern, reduction of deviations, Handout issued, Pain Neuroscience, Patient Exercise/Therapy program support needs, Precautions/restrictions , Role of Physical Therapy, Transfers The following therapeutic skills were used: Activity dosing, Cues for sequencing/proper technique for activity, Cuing verbal, Teach-back for education, Physical assist Timed Code Treatment (minutes): 31 Skilled Treatment Time (minutes): 31 Please see discipline specific clinical documentation flowsheet for complete details for this therapy evaluation/treatment. SIGNATURE: Jayashree Clemens (more content not included)... [facility] CASE MANAGEMon 05-23-2021 CASE MANAGEM HNO ID: [id number] Author: Mary Elam RN Service: Care Management Author Type: Registered Nurse Type: Care Mgt Progress Note Filed: 05/23/2021 3:28 PM Note Text: CARE MANAGEMENT PROGRESS NOTE SERVICE DATE: 05/23/2021 SERVICE TIME: 1520 LOS: 0 days Referral for Walker placed with [place]. SIGNATURE: Mary Elam RN PATIENT NAME: Paola Jacobo DATE: May 23, 2021 TIME: 3:26 PM PAGER/CONTACT #: [phone] [facility] CASE MGT INIT Alcira 2021 CASE MGT INIT JOSE HNO ID: [id number] Author: Mary Elam RN Service: Care Management Author Type: Registered Nurse Type: Care Mgt Initial Assessment Filed: 05/23/2021 10:12 AM Note Text: CARE MANAGEMENT: ASSESSMENT AND DISCHARGE PLAN SERVICE DATE: May 23, 2021 SERVICE TIME: 929 PRIMARY CARE PHYSICIAN: Ion Mccabe DO ADMISSION STATUS: Extended Recovery Needs Prior to Discharge: OT/PT Evaluation;Discharge Prescriptions MEDICAL: [facility] CHOICE 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 Last discharge within 30 days: No Advance Directive: Current Advance Directive: Health Care Power of Director Workers Compensation In Chart: Yes Up To Date and Valid: Yes Health LiteracyHow often do you need to have someone help you when you read instructions, pamphlets, or other written material from your doctor or pharmacy? : 1 - Never How confident are you filling out medical forms by yourself?: 1 - Extremely If Patient scores > 3 on either question, the following interventions were put into place:: Patient did not score > 3 on either question. Baseline Mental Status Prior to this Illness what was the patient's Baseline Mental Status?: Alert AND Oriented Prior to this illness, has anyone described the patient having any of the following behaviors?: Not Applicable Relationship of the informant to the patient:: Self Functional Status: Independent Does Patient Currently Receive Any Community Services or Home Care?: None Equipment Prior to Admission: None Has the Patient Been in a Mcfp Facility in the Past 30 days?: No SOCIAL: Living Arrangements: Home Lives With: Spouse Financial Resources: Retired;Employed Primary Contact: Extended Emergency Contact Information Primary Emergency Contact: Blu Jacobo Address: [address] [place] [address] Mobile Relation: Spouse Supportive Patient Contact:: Yes Contact Resources: Significant Other Caregiver AssessmentCaregiver is ready, willing and able to meet the patient's needs as recommended by the inter-professional team:: Yes Does the patient have an acute stroke diagnosis, or has the patient had a stroke during this admission?: No Patient's transition needs and plan for meeting these needs: to go home once medically cleared and all goals have been met Patient's perception of need for this admission: to have spine surgery Medication Adherance I am convinced of the importance of my prescription medication: 0 - Agree Completely I worry that my prescription medication will do more harm than good to me : 0 - Disagree Completely I feel financially burdened by my [id number] expenses for my prescription medication:: 0 - Disagree Completely Risk Score: 0 Patient is categorized as: Low risk < 2 Are you interested in bedside delivery of your medications? Yes Is Patient Psychosocially Complex?: No ASSESSMENT AND PLAN: Medical Needs: Medical Needs: Fall risk or frequent falls Psychosocial Needs: Psychosocial Needs: Mental Health Diagnosis Mental Health Information: depression FREEDOM OF CHOICE EXPLAINED: [place] of Choice Given: No Reason Not Given: No placements necessary POTENTIAL TRANSITION PLANS Home;To Be Determined Patient assessed at this time with her at the bedside. 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 She was independent prior to admission and driving. She did have a fall in February with no inuries. Plan is to return home on discharge with her transporting her. CM will remain available for any further needs. SIGNATURE: Mary Elam RN PATIENT NAME: Paola Jacobo DATE: May 23, 2021 TIME: 10:10 AM PAGER/CONTACT #: [phone] [facility] CONSULTon 05-23-2021 CONSULT HNO ID: [id number] Author: Rebeca Nicole MD Service: General Internal Medicine Author Type: Physician Type: Consults Filed: 05/23/2021 12:46 PM Note Text: INTERNAL MEDICINE CONSULT HISTORY AND PHYSICAL PLEASE DO NOT REMOVE FROM THE CHART OR MODIFY PRINTED COPY Patient Name: Paola Jacobo PRIMARY CARE PHYSICIAN: Ion Mccabe DO CONSULTING PHYSICIAN: May Richardson MD MD DATE of CONSULT: 12:42 PM HPI: This is a 60 year old female who presents with DECOMPRESSION LAMINECTOMY INTERBODY FUSION LUMBAR POSTERIOR (PLIF) LEVEL 1 (Bilateral Spine Lumbar) POSTERIOR NON-SEGMENTAL INSTRUMENTATION FOLLOWING LUMBAR FUSION 1 LEVEL PDFI (Bilateral Spine Lumbar) INSERTION INTERBODY BIOMED DEVICE(S) W/ANT INSTR ANCHORING TO DISC SPACE W/INTERBODY FUSION,EA INTERSPACE (Bilateral Spine Lumbar) - L 4-5 laminectomy TLIF. Pt denied . Cp sob / weakness / no fever or chills . Pt episode neausea. No fever or chills . No urgency PAST MEDICAL HISTORY: PAST MEDICAL HISTORY Diagnosis Date - Adrenal adenoma - Fracture - Generalized osteoarthrosis, unspecified site General Osteoarthritis - Nonspecific abnormal results of liver function study SECONDARY TO MONONUCLEOSIS - Personal history of unspecified urinary disorder - Urinary tract infection, site not specified recurrent PAST SURGICAL HISTORY: PAST SURGICAL HISTORY Procedure Laterality Date - ADRENALECTOMY 04/2012 left, robotic - ARTHROSCOPY, SHOULDER, SURGI 01/2010 Right - ARTHROSCOPY, SHOULDER, SURGI 08/2008 Left - ARTHRP LEXY CONDYLEANDPLATU MEDIALANDLAT COMPARTMENTS 09/07/2006 Right, Tan BARROSO MD - ARTHRP KNE CONDYLEANDPLATU MEDIALANDLAT COMPARTMENTS 07/13/2007 Left, Tan BARROSO MD - BIOPSY OVARY UNI/BI SEPARATE PROCEDURE remote two dermoid cysts - CYSTOSCOPY,+URETEROSCOPY 05/2007 - OOPHORECTOMY PARTIAL/TOTAL UNI/BI mid left - PAST SURGICAL HISTORY OF 09/29/2003 Diagnostic flexible hysteroscopy, dilatation and curettage and ThermaChoice endometrial ablation - PAST SURGICAL HISTORY OF 2002 orif right ulna with plate and subsequent removal - PAST SURGICAL HISTORY OF 2005 Bilateral bunionectomies - PAST SURGICAL HISTORY OF 04/2008 bilateral toe surgery - PAST SURGICAL HISTORY OF 2006 right knee replacement - PAST SURGICAL HISTORY OF 07/2008 left hammertoe and neuroma - PAST SURGICAL HISTORY OF Right 2020 rotator cuff - TONSILLECTOMY HX - TOTAL ABDOMINAL HYSTERECT W/WO RMVL TUBE OVARY 03/2006 Hysterectomy, [facility] FAMILY HISTORY: FAMILY HISTORY Problem Relation Age of Onset - Breast Cancer Maternal Grandmother - Diabetes Mother adult onset - other (Bladder cancer) Father SOCIAL HISTORY: Social History Tobacco Use - Smoking status: Never Smoker - Smokeless tobacco: Never Used Vaping Use - Vaping Use: Never used Substance Use Topics - Alcohol use: Yes Comment: once per month - Drug use: Never ALLERGIES: ALLERGIES Allergen Reactions - Morphine rash - Vancomycin Itching PRIOR TO ADMISSION MEDICATIONS: methocarbamol (ROBAXIN-750) 750 mg tablet, Take 1 tablet by mouth three times daily as needed., Disp: 90 tablet, Rfl: 0, 05/21/2021 at Unknown time acetaminophen (TYLENOL) 325 mg cap, Take by mouth as needed., Disp: , Rfl: , 05/21/2021 at Unknown time celecoxib (CELEBREX) 200 mg capsule, Take 2 capsules by mouth q 12 HR., Disp: , Rfl: , 05/14/2021 Methenamine Hippurate (HIPREX) 1 gram tablet, Take 1 g by mouth twice daily., Disp: , Rfl: , 05/21/2021 at Unknown time traMADol (ULTRAM) 50 mg tablet, Take 50 mg by mouth every 6 hours as needed., Disp: , Rfl: , 05/22/2021 at 300 sulfamethoxazole/trimeth oprim (BACTRIM ORAL), Take by mouth as directed. , Disp: , Rfl: , 04/24/2021 LIBRAX, WITH CLINIDIUM, 5-2.5 mg per capsule, three times daily with meals. , Disp: , Rfl: , 05/21/2021 at Unknown time pantoprazole DR (PROTONIX) 40 mg tablet, once daily. , Disp: , Rfl: , 05/22/2021 at 300 gabapentin (NEURONTIN) 400 mg capsule, Take 400 mg by mouth twice daily. Taking 800mg 2x daily, Disp: , Rfl: , 05/21/2021 at Unknown time REVIEW OF SYSTEMS: GENERAL: No weight loss, malaise or fevers HEENT: Negative for frequent or significant headaches, No changes in hearing or vision, no nose bleeds or other nasal problems NECK: Negative for lumps, goiter, pain and significant neck swelling RESPIRATORY: Negative for cough, hemoptysis, wheezing, COPD, dyspnea or shortness of breath CARDIOVASCULAR: Negative for chest pain, leg swelling, hypertension, CHF or palpitations GI: No nausea, vomiting, or diarrhea MUSCULOSKELETAL: Negative for joint pain or swelling, back pain or muscle pain SKIN: Negative for lesions, rash, and itching HEMATOLOGY/LYMPHOLOGY: Negative for prolonged bleeding, bruising easily or swollen nodes ENDOCRINE: Negative for cold or heat intolerance, polyuria, polydipsia and goiter NEURO: No history of he (more content not included)... [facility] CONSULT HNO ID: [id number] Author: Kirk Daniel PA-C Service: Pain Management Author Type: Physician Senior Data Analyst Type: Consults Filed: 05/23/2021 8:55 AM Note Text: -------- Attestation signed by Heidy Jade MD at 05/23/2021 3:15 PM I saw and evaluated the patient. Discussed with the pa and agree with marie's findings and plan as documented in the marie's note. -------- INPATIENT PAIN MANAGEMENT CONSULT Patient Name: Paola Jacobo SERVICE DATE: May 23, 2021 SERVICE TIME: 8:52 AM PRIMARY SERVICE: Ortho and Spine Consult by Gab MICHAEL for acute post operative pain INTERVAL HPI: Is the patient having any pain? 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 PAST MEDICAL HISTORY Diagnosis Date - Adrenal adenoma - Fracture - Generalized osteoarthrosis, unspecified site General Osteoarthritis - Nonspecific abnormal results of liver function study SECONDARY TO MONONUCLEOSIS - Personal history of unspecified urinary disorder - Urinary tract infection, site not specified recurrent PAST SURGICAL HISTORY Procedure Laterality Date - ADRENALECTOMY 04/2012 left, robotic - ARTHROSCOPY, SHOULDER, SURGI 01/2010 Right - ARTHROSCOPY, SHOULDER, SURGI 08/2008 Left - ARTHRP KNE CONDYLEANDPLATU MEDIALANDLAT COMPARTMENTS 09/07/2006 Right, Tan BARROSO MD - ARTHRP KNE CONDYLEANDPLATU MEDIALANDLAT COMPARTMENTS 07/13/2007 Left, Tan BARROSO MD - BIOPSY OVARY UNI/BI SEPARATE PROCEDURE remote two dermoid cysts - CYSTOSCOPY,+URETEROSCOPY 05/2007 - OOPHORECTOMY PARTIAL/TOTAL UNI/BI mid left - PAST SURGICAL HISTORY OF 09/29/2003 Diagnostic flexible hysteroscopy, dilatation and curettage and ThermaChoice endometrial ablation - PAST SURGICAL HISTORY OF 2002 orif right ulna with plate and subsequent removal - PAST SURGICAL HISTORY OF 2005 Bilateral bunionectomies - PAST SURGICAL HISTORY OF 04/2008 bilateral toe surgery - PAST SURGICAL HISTORY OF 2006 right knee replacement - PAST SURGICAL HISTORY OF 07/2008 left hammertoe and neuroma - PAST SURGICAL HISTORY OF Right 2020 rotator cuff - TONSILLECTOMY HX - TOTAL ABDOMINAL HYSTERECT W/WO RMVL TUBE OVARY 03/2006 Hysterectomy, [facility] FAMILY HISTORY Problem Relation Age of Onset - Breast Cancer Maternal Grandmother - Diabetes Mother adult onset - other (Bladder cancer) Father Social History Tobacco Use - Smoking status: Never Smoker - Smokeless tobacco: Never Used Vaping Use - Vaping Use: Never used Substance Use Topics - Alcohol use: Yes Comment: once per month - Drug use: Never MEDICATIONS: Current Facility-Administered Medications Medication Dose Route Frequency - Methenamine Hippurate 1 g tab(s) (HIPREX) 1 g ORAL BID w MEALS - gabapentin 800 mg cap(s) (NEURONTIN) 800 mg ORAL BID - pantoprazole DR 40 mg tab(s) (PROTONIX) 40 mg ORAL DAILY (6 AM) - methocarbamol 750 mg tab(s) (ROBAXIN) 750 mg ORAL TID PRN - NaCl 0.9% iv infusion 75 mL/hr INTRAVENOUS CONTINUOUS - ondansetron 4 mg tab(s) (ZOFRAN) 4 mg ORAL q 6 H PRN Or - ondansetron (PF) 4 mg injection (ZOFRAN) 4 mg INTRAVENOUS q 6 H PRN - NaCl 0.9% iv flush bag 20 mL INTRAVENOUS PRN - sodium chloride 0.9 % (flush) 3-5 mL (BD POSIFLUSH) 3-5 mL INTRAVENOUS q 12 H - bisacodyl 10 mg suppository (DULCOLAX) 10 mg RECTAL DAILY PRN - HYDROmorphone FUNCTIONAL MENTAL DISABILITY TEACHER 0.5 mg/mL in NaCl 0.9% 100 mL INTRAVENOUS CONTINUOUS - senna-docusate 8.6-50 mg 1 tablet (SENNA-S) 1 tablet ORAL BID PRN - diphenhydrAMINE 25 mg (BENADRYL) 25 mg ORAL q 4 H PRN - acetaminophen 1,000 mg tab(s) (TYLENOL) 1,000 mg ORAL q 8 H - polyethylene glycol 3350 17 g packet (MIRALAX, GLYCOLAX) 17 g ORAL DAILY PHYSICAL EXAM: Blood pressure 134/89, pulse 88, temperature 36.8 ?C (98.2 ?F), temperature source Oral, resp. rate 17, height 165.1 cm (5' 5 ), weight 86.2 kg (190 lb), last menstrual period 11/02/2004, SpO2 100 %. GENERAL: Alert, no distress, cooperative SKIN: Skin color, texture, turgor normal. No rashes or lesions. HEAD/SINUSES: No significant findings EYES: PERRLA, EOMI Heart: RRR without murmur, gallop, or rubs. No ectopy Lungs: lungs clear to auscultation no wheezing or rhonchi Abdomen: Abdomen soft, non-tender. Bowel sounds normal. No masses, organomegaly EXTREMITIES: Extremities normal, no deformities, edema, clubbing or skin discoloration. NEURO: Motor and Sensory intact KEVIN (more content not included)... [facility] THERAPY [facility] 05-23-2021 THERAPY NT HNO ID: [id number] Author: Jayashree Jacques PT Service: Physical Therapy Author Type: Physical Therapist Type: Therapy (PT/OT/Speech/Resp) Filed: 05/23/2021 2:45 PM Note Text: Physical Therapy Evaluation SERVICE DATE: 05/23/2021 SERVICE TIME: 1320 to 1415 ROOM: [place] [id number] Recommended Discharge Disposition: Home Anticipated Discharge Needs: Physical Assist at Home Physical Assist at Home for: Cleaning;Laundry;Meals;S hopping;Transportation Recommended Discharge Equipment: Wheeled Walker PT 6 Clicks Score: 18 Precautions/Activity Restrictions: Spine;Lines/Tubes/Drains Current Hospital Course: Admit from home s/p L4-5 laminectomy 05/22/2021 Reason for Hospital Admission: spinal stenosis, spondylolisthesis L4-5 Relevant Past Medical History: right rotator cuff repair, bilateral TKA Response to Therapy Interventions: Good participation in activities, On-track to achieve discharge goals, Pain Continue skilled needs due to: Functional mobility/skill impairments Physical Therapy Problem List: Education Deficit;Pain;Functional Mobility Impairment Treatment Interventions: Education;Functional Mobility Training;Modalities Modalities: Ice Plan for next visit: Bed mobility, Gait training, Exercise instruction/handout, Stairs training, Walker Training Home Environment Patient Lives With: Spouse Assistance Available: 24 Hour Entry To Home: Stairs;With Rail Number Of Stairs Into Home: 4 Number Of Stairs To Bed/Bath: 12 Stairs to Bed/Bath with: Unilateral Rail Laundry: completes Prior Functional Level: Within Functional Limits;Required Assistance Assistance Required With: Cleaning;Laundry;Meals;S tairs;Self Care;Shopping;Transporta tion Prior Functional Level Comments: Patient reports 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 I will do what I can. Patient with improved pain control, able to mobilize better. CURRENT FUNCTIONAL STATUS: Most recent performance Current Functional Mobility Assist Level Additional Information Rolling Stand By Assistance (with cues for safe technique) Supine to Sit Minimal Assistance Sit to Supine Minimal Assistance Scooting Stand By Assistance Sit to Stand Contact Guard Assistance Stand to Sit Contact Guard Assistance Bed to Chair Contact Guard Assistance Bed To Chair Transfer Type: Stepping Bed To Chair Transfer Equipment: Wheeled Walker Toilet/Commode Gait Stand By Assistance Gait Device: Wheeled Walker Gait Distance (feet): 150 feet x 2 Stairs Curb Step Car Transfer Blank leonardo indicate activity not attempted General Deviations/Observations: Antalgic gait;Jorge decreased Balance: Static Standing;Dynamic Standing Static Standing Balance: Good Patient able to maintain balance without handhold support, limited postural sway Dynamic Standing Balance: Fair Patient accepts minimal challenge, able to maintain balance while turning head/trunk Activity Tolerance: Standing Activity Standing Activity: tolerated increased activity, mobility this afternoon -HLM: 7: Walk 25 feet or more Learning/Educational Needs: Discharge Plan;Functional Activities/Mobility;Plan of Care;Precautions;PT In-Hospital Exercise Program;Rehabilitation Techniques and Procedures Goals for Plan of Care: Patient /Caregiver Goals: Go Home Goals: Patient will demonstrate progress with functional mobility to allow safe discharge to home with available support and/or physical assistance. Rehab Potential: Good Patient will be discontinued from Physical Therapy when no further skilled needs are identified in this setting. PLAN: PT Frequency: Once daily Plan of Care developed with: Patient TREATMENT INTERVENTIONS: Therapy Diagnosis: Reduced mobility-other Interventions Provided: Evaluation;Therapeutic Exercise (73936);Therapeutic Activity (69328);Gait Training (71164) $ Evaluation-Low (72692) Billed Units: 1 unit Therapeutic Exercise (06130) Treatment Minutes: 10 $ Therapeutic Exercise (63129) Billed Units: 1 unit Therapeutic Activity (96821) Treatment Minutes: 10 $ Therapeutic Activity (30641) Billed Units: 1 unit Gait Training (97946) Treatment Minutes: 20 $ Gait Training (94712) Billed Units: 1 unit Training AND education provided in: Anatomy and impact on deficits, Assistive device use, Bed mobility, Benefits of in-hospital mobility, Discharge planning, Expected functional level, Gait pattern, reduction of deviations, Handout issued, Pain Neuroscience, Patient Exercise/Therapy program support needs, Precautions/restrictions , Role of Physical Therapy, Transfers The following therapeutic skills were used: Activity dosing, Cues for sequencing/proper technique for activity, Cuing verbal, Teach-back for education, Physical assist Timed Code Treatment (minutes): 40 Skilled Treatment Time (minutes): 55 Please see (more content not included)... [facility] EV[facility] HNO ID: [id number] Author: Franc Easton II, DO Service: Anesthesiology Author Type: Anesthesiologist Type: Anesthesia Postprocedure Evaluation Filed: 05/22/2021 8:54 PM Note Text: POST ANESTHESIA EVALUATION NOTE : 1960 Procedure Summary Date: 05/22/21 Room / Location: OR / OR Anesthesia Start: 1455 Anesthesia Stop: 2020 Procedures: DECOMPRESSION LAMINECTOMY INTERBODY FUSION LUMBAR POSTERIOR (PLIF) LEVEL 1 (Bilateral Spine Lumbar) POSTERIOR NON-SEGMENTAL INSTRUMENTATION FOLLOWING LUMBAR FUSION 1 LEVEL PDFI (Bilateral Spine Lumbar) INSERTION INTERBODY BIOMED DEVICE(S) W/ANT INSTR ANCHORING TO DISC SPACE W/INTERBODY FUSION,EA INTERSPACE (Bilateral Spine Lumbar) Diagnosis: Spinal stenosis, lumbar region, with neurogenic claudication Spondylolisthesis of lumbar region Chronic bilateral low back pain with right-sided sciatica Right leg pain (Spinal stenosis, lumbar region, with neurogenic claudication [M48.062]) (Spondylolisthesis of lumbar region [M43.16]) (Chronic bilateral low back pain with right-sided sciatica [M54.41, G89.29]) (Right leg pain [M79.604]) Surgeons: May Richardson MD Responsible Provider: Franc Easton II, DO Anesthesia Type: general ASA Status: 3 Anesthesia Type: general Airway Type: ETT Last Vitals Vitals Value Taken Time BP 145/72 05/22/212052 Temp 36.2 ?C (97.2 ?F) 05/22/212009 Pulse 92 05/22/212053 Resp 18 05/22/212029 SpO2 98 % 05/22/212053 Vitals shown include unvalidated device data. Post Anesthesia Patient Status Patient Evaluation: bedside. Intraoperative Events: no significant anesthesia events Recommendation: continue current plan of care. Anesthesia Observations No Documentation SIGNATURE: Franc Easton II, DO PATIENT NAME: Paola Jacobo DATE: May 22, 2021 TIME: 8:54 PM CSN: [id number] [facility] ANES PRE-OPon 05-22-2021 ANES PRE-OP HNO ID: [id number] Author: Liu Hardy MD Service: Anesthesiology Author Type: Anesthesiologist Type: Anesthesia Preprocedure Evaluation Filed: 05/22/2021 1:26 PM Note Text: ANESTHESIOLOGY DAY OF SURGERY NOTE : 1960 Procedure Information Date/Time: 05/22/21 1127 Procedures: DECOMPRESSION LAMINECTOMY INTERBODY FUSION LUMBAR POSTERIOR (PLIF) LEVEL 1 (Bilateral Spine Lumbar) POSTERIOR NON-SEGMENTAL INSTRUMENTATION FOLLOWING LUMBAR FUSION 1 LEVEL PDFI (Bilateral Spine Lumbar) INSERTION INTERBODY BIOMED DEVICE(S) W/ANT INSTR ANCHORING TO DISC SPACE W/INTERBODY FUSION,EA INTERSPACE (Bilateral Spine Lumbar) - L 4-5 laminectomy TLIF Location: [facility] OR09 / [facility] OR Surgeons: May Richardson MD Estimated body mass index is 36.28 kg/m? as calculated from the following: Height as of 05/14/21: 165.1 cm (5' 5 ). Weight as of 05/14/21: 98.9 kg (218 lb). Most recent hematocrit and potassium results: Hematocrit 41.2 05/14/2021 Potassium 4.9 05/14/2021 Relevant Problems No relevant active problems I - PHYSICAL EVALUATION AIRWAY Patient intubated: No. Tracheostomy tube not present Mallampati: II. TM distance: >3 FB. Neck ROM: full ROM without neurological symptoms. Mouth opening: adequate. Short neck: no. Thick neck: no DENTAL Dental findings: teeth intact and poor dentition. Additional exam findings: no II - ANESTHESIA PLAN ASA Score: 3 Anesthetic Plan: general Airway type: ETT NPO Status: adequate Monitoring plan: Standard ASA. Postoperative analgesic plan: parenteral or oral opioids and multimodal analgesia. Patient / Surrogate agrees to blood products: yes DNR status not reviewed with patient and/or family prior to surgery. Significant changes in the patient condition since the History and Physical, not otherwise documented in primary service progress note: no. Potential Anesthesia issues that may suggest increased risk of complications or contraindication to planned procedure: none. Vitals Value Taken Time BP 138/78 05/22/21 0900 Pulse 70 05/22/21 0900 Resp 16 05/22/21 0900 Temp 36.1 ?C (97 ?F) 05/22/21 0900 SpO2 100 % 05/22/21 0900 Facility-Administered Medications as of 05/22/2021 Medication Dose Route Frequency - lactated ringers iv infusion 5-30 mL/hr INTRAVENOUS CONTINUOUS - ceFAZolin iv piggyback 2 g in D5W (iso-osmotic) 100 mL (ANCEF) 2 g INTRAVENOUS Pre-Op Once - [COMPLETED] vancomycin 1.5 g in D5W 250 mL (VANCOCIN) 1.5 g INTRAVENOUS Pre-Op Once - [COMPLETED] diphenhydrAMINE 25 mg injection (BENADRYL) 25 mg INTRAVENOUS ONCE - [COMPLETED] dexAMETHasone sodium phosphate (PF) 10 mg injection (DECADRON) 10 mg INTRAVENOUS ONCE Outpatient Medications as of 05/22/2021 Medication Sig - methocarbamol (ROBAXIN-750) 750 mg tablet Take 1 tablet by mouth three times daily as needed. - acetaminophen (TYLENOL) 325 mg cap Take by mouth as needed. - celecoxib (CELEBREX) 200 mg capsule Take 2 capsules by mouth q 12 HR. - Methenamine Hippurate (HIPREX) 1 gram tablet Take 1 g by mouth twice daily. - traMADol (ULTRAM) 50 mg tablet Take 50 mg by mouth every 6 hours as needed. - sulfamethoxazole/trimeth oprim (BACTRIM ORAL) Take by mouth as directed. - LIBRAX, WITH CLINIDIUM, 5-2.5 mg per capsule three times daily with meals. - pantoprazole DR (PROTONIX) 40 mg tablet once daily. - gabapentin (NEURONTIN) 400 mg capsule Take 400 mg by mouth twice daily. Taking 800mg 2x daily I have interviewed and examined the patient. I have reviewed the medical record and/or the pre-anesthesia evaluation, pertinent labs, and test results. This contains updated information obtained within 48 hours of Surgery/Procedure. SIGNATURE: Liu Hardy MD PATIENT NAME: Paola Jacobo DATE: May 22, 2021 TIME: 1:25 PM CSN: [id number] [facility] BRIEF OP NOTon 05-22-2021 BRIEF OP NOT HNO ID: [id number] Author: May Richardson MD Service: Neurosurgery Author Type: Physician Type: Brief Op Note Filed: 05/22/2021 8:03 PM Note Text: BRIEF OPERATIVE / PROCEDURE NOTE LOG ID: [id number] SURGERY/PROCEDURE DATE: 05/22/2021 INCISION/PROCEDURE START TIME: 4:02 PM INCISION CLOSE/PROCEDURE END TIME: 7:57 PM SURGEON(S)/PROCEDURALIST (S) AND CULINARY CHEF(S): Surgeon(s) and Role: * May Richardson MD - Primary Physician Senior Data Analyst: Emely Bonilla PA-C SURGERY/PROCEDURE(S): L4-5 laminectomy and TLIF ANESTHESIA: General FINDINGS: pars defect L4-5 with severe stenosis ESTIMATED BLOOD LOSS: 200 mls SPECIMENS: None COMPLICATIONS: None DRAINS: Unmodified PRE-OP/PRE-PROCEDURE DIAGNOSIS: lumbar stenosis and spondylolisthesis POST-OP/POST-PROCEDURE DIAGNOSIS: Same as Preop SIGNATURE: May Richardson MD PATIENT NAME: Paola Jacobo DATE: May 22, 2021 TIME: 7:58 PM [facility] NURSING PROGon 05-22-2021 NURSING PROG HNO ID: [id number] Author: Jalil Covarrubias RN Service: Nursing Author Type: Registered Nurse Type: Nursing Progress Note Filed: 05/22/2021 4:36 PM Note Text: Patient transported to the OR via cart, accompanied by CK AND TJ. Level of consciousness: Alert and Oriented x 3 Emotional Status:Calm Sensory Impairments: No Language Barrier: No Mobility Impairments: No Addressed any patient concerns regarding consents, OR environment, and anesthetics. Body temperature maintained by maintaining OR room temperature between 68-72 degrees F, providing patient with warm bath blankets, limiting areas of exposure and providing warm irrigation fluid. [facility] NURSING PROG HNO ID: [id number] Author: Betsy Yang RN Service: Nursing Author Type: Registered Nurse Type: Nursing Progress Note Filed: 05/22/2021 11:38 AM Note Text: Nursing Progress Note Patient Name: Paola Jacobo [facility] [place] [place] Daily Note: Denies SOB. This note was completed by: Betsy Yang [facility] OPERATIVE NOon 05-22-2021 OPERATIVE NO HNO ID: [id number] Author: May Richardson MD Service: Neurosurgery Author Type: Physician Type: Operative Report Filed: 05/23/2021 5:12 PM Note Text: [facility] - Operative Report PAOLA JACOBO : 1960 AGE: 60. SEX: F PATIENT TYPE: A HOSP SVC: NEUS LOCATION: [facility] ATTENDING PHYSICIAN: May Richardson M.D. [facility] NUMBER: [id number] DATE OF SURGERY/PROCEDURE: 05/22/2021 INCISION/PROCEDURE START TIME: 4:02 PM INCISION CLOSE/PROCEDURE END TIME: 7:57 PM PREOPERATIVE DIAGNOSIS: Lumbar stenosis, spondylolisthesis, L4-5. POSTOPERATIVE DIAGNOSIS: Lumbar stenosis, spondylolisthesis, L4-5. SURGEON: May Richardson M.D. CULINARY CHEF: Cassi Messina. SURGERY/PROCEDURE: L4-5 laminectomy and transforaminal lumbar interbody fusion. ANESTHESIA: General. ESTIMATED BLOOD LOSS: 200 mL. BACKGROUND NOTE: This patient had severe pain in the low back going down the legs. MRI revealed severe stenosis at L4-5 with spondylolisthesis. She did not approve the conservative treatment, wished to have surgery. All risks and benefits were carefully explained. DESCRIPTION OF PROCEDURE: The patient was taken the OR and satisfactory general endotracheal anesthesia was induced. The patient was given 2 g of IV preoperative Ancef and placed in the prone position on the Eliot table. All bony prominences were carefully protected. The back was prepped and draped in usual sterile fashion. Time-out was performed. Incision was made over L4-5. The lamina was exposed in the subperiosteal plane. An intraoperative x-ray was taken to verify that we were at the correct level with an instrument rigidly fixed to the spine. We agreed on the level and marked with a purple marking pen a destructive lesion and confirmed with Radiology using [facility] protocol. We put in self-retaining retractors and exposed the transverse processes of L4 and 5. The L4 and 5 lamina were then removed. 180 degrees of the thecal sac was exposed. Right foraminotomies were performed. We removed the right L4-5 facet and in fact, there was actually a pars defect at this level. We were able to pass a blunt instrument out the foramina at both levels on both sides. There was no residual compression. There was severe stenosis and the dura in fact had to be sharply dissected from the ligamentum. We then placed the pedicle screws using the [employer] Nabil system using 6.5 x 50s at L4, 6 x 45s at L5. We made a harbor pilot hole at the junction of the superior articular facet of the transverse process, cannulated with the pedicle finder and then palpated and then placed pedicle screws. Good bony purchase was obtained. There was no bony breach noted. We then placed rods in the screw heads and then top locking screws and then tightened these. We made an annulotomy at L4-5, removed the disk, scraped the endplate and after copiously irrigating, we placed an expandable cage at L4-5, expanding it to approximately 12 mm. This was filled with morselized autograft. An additional bone was packed into the disk space. We then tightened the top locking screws with a torque wrench. Final x-ray showed good placement of hardware and good spinal alignment. We repalpated the foramina. There was no compression on any of the nerves. We then decorticated the posterolateral bone at L4-5 and placed morcellized autograft for posterolateral fusion at L4-5. We then placed an epidural drain and brought this out through a separate stab incision. There was no active bleeding when we began to close. We placed vancomycin powder into the wound. The wound was then closed in multiple layers using starr for the skin. Dry sterile dressing was applied. At the end of the case, the patient was transferred to the hospital bed, extubated, and taken to the PACU in stable condition. There were no complications. All counts were correct at the end of the case. I was present and scrubbed for all critical aspects of the case. May Richardson M.D. MARIE:[id number] /[id number] Addendum: The PA helped with suctioning, retraction, and suturing. May Richardson MD [facility] XR LUMBAR 2V AP/LATon 2021 XR LUMBAR 2V AP/LAT * * *Final Report* * * DATE OF EXAM: May 22 2021 7:22PM [facility] 5229 - XR LUMBAR 2V AP/LAT / PROCEDURE REASON: Spinal stenosis, lumbar region, with neurogenic claudication * * * * Physician Interpretation * * * * TECHNIQUE: XR LUMBAR 2V AP/LAT COMPARISON: No prior study for comparison. TECHNIQUE: Limited fluoroscopic imaging of the lumbar spine for intraoperative localization CLINICAL INDICATION: Spinal stenosis, lumbar region, with neurogenic claudication Fluoroscopic Radiation Summary: Plane A, Air Kerma: 5.4 mGy Dose Area Product (DAP): 0.0 mGy*cm^2 Fluoro time: 0:10 min:sec IMAGE NUMBER: 2 RESULT: Pedicle screws with associated posterior fixation rods extending from the L4 to the L5 level. Interbody graft and the L4-5 intervertebral disc space. IMPRESSION: 1. As above. Liquid Sugar Melter: [facility] Transcribe Date/Time: May 22 2021 7:24P Dictated by : MEGHAN DIAZ MD This examination was interpreted and the report reviewed and electronically signed by: MEGHAN DIAZ MD on May 22 2021 7:25PM EST [id number] [facility] XR LUMBAR SPECIFY 1Von 05-22 XR LUMBAR SPECIFY 1V * * *Final Report* * * DATE OF EXAM: May 22 2021 3:35PM [facility] [place] 5234 - XR LUMBAR SPECIFY 1V / PROCEDURE REASON: Spinal stenosis, lumbar region, with neurogenic claudication * * * * Physician Interpretation * * * * Lateral lumbar spine History: Intraoperative localization for spinal surgery. Findings: Orthopedic marker is posterior to the L4 spinous process. Counting reference: Lumbosacral junction. For the purposes of this report, L4-5 is considered the level of the iliac crest and there are 5 lumbar-type vertebrae. Anatomic Variants: None. IMPRESSION: Localization for surgical purposes Liquid Sugar Melter: [facility] Transcribe Date/Time: May 22 2021 3:40P Dictated by : CORBY CULP MD This examination was interpreted and the report reviewed and electronically signed by: CORBY CULP MD on May 22 2021 3:40PM EST [id number] [facility] XR LUMBAR SPECIFY 1V * * *Final Report* * * DATE OF EXAM: May 22 2021 3:34PM [facility] [place] 5234 - XR LUMBAR SPECIFY 1V / PROCEDURE REASON: Spinal stenosis, lumbar region, with neurogenic claudication * * * * Physician Interpretation * * * * Lateral lumbar spine History: Intraoperative localization for spinal surgery. Findings: Orthopedic marker is posterior to the L1 spinous process. Counting reference: Lumbosacral junction. For the purposes of this report, L4-5 is considered the level of the iliac crest and there are 5 lumbar-type vertebrae. Anatomic Variants: None. IMPRESSION: Localization for surgical purposes [facility] Transcribe Date/Time: May 22 2021 3:39P Dictated by : CORBY CULP MD This examination was interpreted and the report reviewed and electronically signed by: CORBY CULP MD on May 22 2021 3:39PM EST [id number] [facility] XR VERIFY LEVEL [id number] 05-22-2021 XR VERIFY LEVEL L-SPINE-NB * * *Final Report* * * DATE OF EXAM: May 22 2021 4:22PM [facility] 5642 - XR VERIFY LEVEL L-SPINE-NB / PROCEDURE REASON: Spinal stenosis, lumbar region, with neurogenic claudication * * * * Physician Interpretation * * * * TECHNIQUE: Single lateral image of the lumbar spine COUNTING REFERENCE: Lumbosacral junction. L4/5 is presumed to be the level of the iliac crests. There are 5 lumbar type vertebral bodies. COMPARISON: X-ray lumbar spine on 04/02/2021. RESULT: A single lateral image is obtained intraoperatively for surgical planning. There are 2 radiopaque probes visualized with the upper probe approaching the mid level of L3 lamina and the lower probe approaching the upper level of the L4 lamina. Image annotated with vertebral body levels and confirmed with the responsible surgeon at the time of interpretation. IMPRESSION: OPERATIVE ASSESSMENT COMMUNICATION: Localization level(s) confirmed with: Dr. May Richardson on 05/22/2021 4:28 PM, via phone and Skype during the surgical procedure. Liquid Sugar Melter: [facility] Transcribe Date/Time: May 22 2021 4:32P Dictated by : ALON VILLA MD This examination was interpreted and the report reviewed and electronically signed by: ALON VILLA MD on May 22 2021 4:40PM EST [id number] [facility] ANES POSTPROC EVALon 020 ANES POSTPROC EVAL HNO ID: [id number] Author: J Carlos Jade Service: ? Author Type: Anesthesiologist Type: Anesthesia Postprocedure Evaluation Filed: 01/09/2020 11:44 AM Note Text: POST ANESTHESIA EVALUATION NOTE : 1960 Procedure Summary Date: 01/09/20 Room / Location: OR / OR Anesthesia Start: 748 Anesthesia Stop: 1034 Procedure: ARTHROSCOPY SHOULDER ROTATOR CUFF (Right Shoulder) Diagnosis: Rotator cuff tear, right (Rotator cuff tear, right [M75.101]) Surgeons: Corby Esparza Responsible Provider: J Carlos Jade Anesthesia Type: general, regional ASA Status: 2 Anesthesia Type: general, regional Last vitals Vitals Value Taken Time BP 134/84 01/09/20 1130 Temp 36.4 ?C (97.5 ?F) 01/09/20 1030 Pulse 67 01/09/20 1143 Resp 0 01/09/20 1143 SpO2 95 % 01/09/20 1143 Vitals shown include unvalidated device data. Post Anesthesia Patient Status Patient Evaluation: PACU. PACU/ICU Patient Condition: stable. Anticipated Disposition: phase 2 then home. Neurological Status: aware and responsive. Pulmonary Status: breathing comfortably on room air Airway Control: returned to baseline unsupported. Cardiovascular Status: stable. Pain Management: clinically adequate - multimodal analgesia pain management approach Postoperative Hydration: acceptable. Intraoperative Events: no significant anesthesia events Post Operative Nausea/Vomiting Status: Anesthetic Observations: no significant anesthetic observations Recommendation: continue current plan of care. SIGNATURE: J Carlos Jade MD PATIENT NAME: Paola Jacobo DATE: January 09, 2020 TIME: 11:44 AM CSN: [id number] [facility] ANES PRE-OPon 01-09-2020 ANES PRE-OP HNO ID: [id number] Author: J Carlos Jade Service: ? Author Type: Anesthesiologist Type: Anesthesia Preprocedure Evaluation Filed: 01/09/2020 7:12 AM Note Text: ANESTHESIOLOGY DAY OF SURGERY NOTE : 1960 Procedure(s) (LRB): ARTHROSCOPY SHOULDER ROTATOR CUFF (Right) Surgeon(s): Corby Esparza Estimated body mass index is 30.79 kg/m? as calculated from the following: Height as of 01/05/20: 165.1 cm (5' 5 ). Weight as of 01/05/20: 83.9 kg (185 lb). Most recent hematocrit and potassium results: Hematocrit 32.8 02/06/2014 Potassium 3.4 02/06/2014 Relevant Problems No relevant active problems I - PHYSICAL EVALUATION AIRWAY Patient intubated: No. Mallampati: II. TM distance: >3 FB. Neck ROM: full ROM without neurological symptoms. Mouth opening: adequate. Short neck: no. Thick neck: no DENTAL Dental findings: teeth intact. Additional exam findings: no II - ANESTHESIA PLAN ASA Score: 2 Anesthetic Plan: general and regional NPO Status: adequate Monitoring plan: Standard ASA. Postoperative analgesic plan: parenteral or oral opioids, peripheral nerve block and multimodal analgesia. Anesthetic Risks, Benefits, Alternatives, Personnel Discussed. Consent obtained from: patient. Patient / Surrogate agrees to blood products: yes DNR status not reviewed with patient and/or family prior to surgery. Significant changes in the patient condition since the History and Physical, not otherwise documented in primary service progress note: no. Potential Anesthesia issues that may suggest increased risk of complications or contraindication to planned procedure: none. Vitals Value Taken Time BP 131/80 01/09/20 0545 Pulse 68 01/09/20 0545 Resp 20 01/09/20 0545 Temp 36.8 ?C (98.2 ?F) 01/09/20 0545 SpO2 100 % 01/09/20 0545 Facility-Administered Medications as of 01/09/2020 Medication Dose Route Frequency - lidocaine 10 mg/mL (1 %) 1-2 mg injection (XYLOCAINE) 0.1-0.2 mL INTRADERMAL PRN - lactated ringers infusion 5-30 mL/hr INTRAVENOUS CONTINUOUS - ceFAZolin iv piggyback 2 g in D5W (iso-osmotic) 100 mL (ANCEF) 2 g INTRAVENOUS Pre-Op Once - midazolam (PF) 5 mg injection (VERSED) 5 mg INTRAVENOUS ONCE Outpatient Medications as of 01/09/2020 Medication Sig - pantoprazole DR (PROTONIX) 40 mg tablet - gabapentin (NEURONTIN) 400 mg capsule - oxaprozin (DAYPRO) 600 mg tablet 600 mg twice daily. - tiZANidine (ZANAFLEX) 4 mg tablet Take 2 tablets by mouth at bedtime as needed. - oxyCODONE-acetaminophen (PERCOCET) 5-325 mg tablet Take 1 tablet by mouth every 6 hours as needed for Pain for up to 5 days. - sulfamethoxazole/trimeth oprim (BACTRIM ORAL) Take by mouth as directed. - LIBRAX, WITH CLINIDIUM, 5-2.5 mg per capsule I have interviewed and examined the patient. I have reviewed the medical record and/or the pre-anesthesia evaluation, pertinent labs, and test results. This contains updated information obtained within 48 hours of Surgery/Procedure. SIGNATURE: J Carlos Jade MD PATIENT NAME: Paola Jacobo DATE: January 09, 2020 TIME: 7:12 AM CSN: [id number] [facility] BRIEF OP NOTon 01-09-2020 BRIEF OP NOT HNO ID: [id number] Author: Liu Garza (Fel) Service: Orthopaedic Surgery Author Type: Fellow Type: Brief Op Note Filed: 01/09/2020 10:33 AM Note Text: BRIEF OP NOTE LOG ID: [id number] Surgery/Procedure Date: 01/09/2020 Incision/Procedure Start Time: 8:22 AM Incision Close/Procedure End Time: 10:21 AM Surgeon(s)/Proceduralist (s) and Senior Data Analyst(s): Surgeon(s) and Role: * Corby Esparza - Primary * Liu Garza (Fel) - Fellow Procedure(s): Right shoulder superior capsular reconstruction Anesthesia: General Findings: Right cuff tear arthropathy Estimated Blood Loss: 20 mls Specimens: None Complications: None Pre-Op/Pre-Procedure Diagnosis: Right cuff tear arthropathy Post-Op/Post-Procedure Diagnosis: * No post-op diagnosis entered * SIGNATURE: Liu Garza MD PATIENT NAME: Paola Jacobo DATE: January 09, 2020 TIME: 10:32 AM PAGER/CONTACT #: [facility] HISTORY PHYSICALon 0 HISTORY PHYSICAL HNO ID: [id number] Author: Corby Esparza Service: Orthopaedic Surgery Author Type: Physician Type: HANDP Filed: 01/09/2020 11:21 AM Note Text: UPDATED HISTORY AND PHYSICAL EXAMINATION SERVICE DATE: 01/09/2020 SERVICE TIME: 30 PHYSICAL EXAM MUST BE COMPLETED ON ADMISSION The History and Physical (completed in the past 30 days) has been reviewed and the patient has been examined. The contents accurately reflect the patient's condition with the following additions or revisions since the HANDP was completed. Examination indicates no changes. This HANDP can be found in the Electronic Medical Record dated 01/05/2020. The patient was offered a surgery/procedure at a [facility] facility. The surgeon/proceduralist and patient have discussed in detail the risk of exposure to and/or potential harm posed by the COVID-19 virus with having a surgery/procedure at this time versus the risk of delaying the surgery/procedure. It is not possible to know either the risk of delaying the surgery or procedure or chance of getting an infection with perfect accuracy, but a joint decision was made between the patient and the surgeon/proceduralist to proceed at this time with the scheduled surgery/procedure as indicated on the consent form. SIGNATURE: Corby Esparza MD PATIENT NAME: Paola Jacobo DATE: January 09, 2020 TIME: 11:20 AM PAGER: [facility] OPERATIVE NOon 01-09-2020 OPERATIVE NO HNO ID: [id number] Author: Corby Esparza Service: Orthopaedic Surgery Author Type: Physician Type: Operative Report Filed: 01/09/2020 11:23 AM Note Text: Paola Prieto Randalbrigitte [id number] LOG ID: [id number] Surgery/Procedure Date: 01/09/2020 Incision/Procedure Start Time: 8:22 AM Incision Close/Procedure End Time: 10:21 AM Surgeon(s)/Proceduralist (s) and Senior Data Analyst(s): Surgeon(s) and Role: * Corby Esparza - Primary * Liu Garza (Fel) - Fellow Physician Senior Data Analyst: Ramana Hamlin (Pa) Anesthesia: General Pre-Op/Pre-Procedure Diagnosis: Chronic rotator cuff tear right shoulder Post-Op/Post-Procedure Diagnosis: Chronic rotator cuff tear right shoulder Operative Indications: Persistent symptoms despite approriate non-operative treatment Procedure: Arthroscopic Rotator Cuff Repair and Superior Capsular Reconstruction and Capulorraphy with Arthroflex flex graft Right Shoulder (-22) This is a complex procedure requiring 100% greater effort than a routine arthroscopic rotator cuff repair. Additional Procedure(s): None Operative Findings: Complete nonrepairable tear of the supraspinatus tendon. Intact subscapularis. Minimal glenohumeral osteoarthritis. DESCRIPTION OF OPERATION: The patient was identified by name and birthdate in the pre-operative area and the operative site marked by the surgical team. After regional anesthesia, she was brought to the operating room and placed supine on the operating table. After general anesthesia, the shoulder was examined demonstrating full passive motion. she was subsequently placed into the lateral decubitus position. The shoulder was prepped and draped in the usual sterile fashion. Time-out and site identification were performed. The arthroscope was introduced in the glenohumeral joint through a posterior portal with a small outflow cannula established in the rotator interval. A complete diagnostic arthroscopy of the entire glenohumeral joint was performed demonstrating the above findings. The biceps tendon was absent. The subscapularis tendon was partially torn but largely intact. The undersurface of the rotator cuff tear was debrided of all unstable tissue. Synovectomy was performed as needed, and all frayed and torn edges of the labrum were debrided. The joint was flushed clear of any particulate debris. The arthroscope was moved into the subacromial space. A lateral PassPort cannula was placed. Subacromial bursectomy was performed. Hypertrophic CA ligament was debrided and acromioplasty performed as indicated. A shaver and radiofrequency electrocautery was used to further debride the edge of the torn tendon of unstable, damaged tissue. The greater tuberosity footprint was cleared of soft tissue. Any remaining remnant of superior labrum and biceps were removed from the superior glenoid. Attention was redirected medially. 2 double loaded suture tack anchors were placed at the 11:00 and 1:00 position on the glenoid. Through a percutaneous incision, the medial row of 2 PEEK swivel lock suture anchors was placed using standard technique. Tapes were brought out through the lateral portal. Passing sutures attached to the suture tack anchors medially on the glenoid brought out laterally as well. Appropriate measurements were made. The graft was sized appropriately and small holes for the sutures were created using the punch. The passing sutures were brought through the medial end of the graft. The suture tapes were brought through the holes in the lateral edge of the graft. Using a double jaylen technique with the graft carefully rolled up onto itself, the graft and sutures were pulled into the subacromial space. The graft was visualized and placed appropriately in the subacromial space. Lateral tapes were oriented appropriately. Medial sutures were tied with half-inch sutures securing the graft onto the glenoid. The Arthroflex Graft was secured to the greater tuberosity bone using a Double row technique. Number of anchors; Medial Row: 2, Lateral Row: 2 and [place] Type: PEEK SwiveLock The suture anchors were placed using standard technique. A Speedbridge configuration was utilized for the repair.. Remaining dog-ears were closed with additional free sutures.This resulted in excellent placement of the graft with methodist of the supraspinatus rotator cuff footprint with appropriate tension on the repair. The infraspinatus tendon was repaired side to side to the graft posteriorly .Bleeding points were cauterized and the subacromial space was flushed until clear of any particulate matter. The arthroscope, instruments and cannulas were removed. Incisions were closed with 2-0 absorbable and 3-0 Monosoft sutures. A sterile bandage was applied and the arm was placed into a sling with a small abduction pillow. An ice pack was placed onto the shoulder. The patient was awakened and transported to recovery room in satisfactory condition, having tolerated the procedure well. Implants: Implant Name Type Inv. Item Serial No. Video Game Engineer Lot No. LRB No. Used Action GRAFT ARTHROFLEX THK2.5-3.5MM DECELLULARIZED DERMIS [id number] SOFT TISSUE - [id number] Implant GRAFT ARTHROFLEX THK2.5-3.5MM DECELLULARIZED DERMIS [id number] SOFT TISSUE [id number] [facility] Right 1 Implanted ANCHOR SWIVELOCK 4.75MM PEEK 19.1MM SUTURE CLOSED EYELET VENT STERILE - [id number] [place] ANCHOR SWIVELOCK 4.75MM PEEK 19.1MM SUTURE CLOSED EYELET VENT STERILE [employer] [id number] Right 1 Implanted ANCHOR SWIVELOCK 4.75MM PEEK 19.1MM SUTURE CLOSED EYELET VENT STERILE - [id number] [place] ANCHOR SWIVELOCK 4.75MM PEEK 19.1MM SUTURE CLOSED EYELET VENT STERILE [employer] [id number] Right 1 Implanted ANCHOR SWIVELOCK C TIGERTAPE 4.75MM BLACK WHITE PEEK 19.1MM SUTURE CLOSED - [id number] Suture [place] ANCHOR SWIVELOCK C TIGERTAPE 4.75MM BLACK WHITE PEEK 19.1MM SUTURE CLOSED [employer] [id number] Right 1 Implanted ANCHOR SWIVELOCK C FIBERTAPE 4.75MM BLUE PEEK 19.1MM SUTURE CLOSED EYELET - [id number] Suture [place] ANCHOR SWIVELOCK C FIBERTAPE 4.75MM BLUE PEEK 19.1MM SUTURE CLOSED EYELET [employer] [id number] Right 1 Implanted ANCHOR SUTURETAK FIBERWIRE 3MM 2 PEEK 12.2MM SUTURE ROTATOR CUFF - [id number] Suture [place] ANCHOR SUTURETAK FIBERWIRE 3MM 2 PEEK 12.2MM SUTURE ROTATOR CUFF [employer] [id number] Right 1 Implanted ANCHOR SUTURETAK FIBERWIRE 3MM 2 PEEK 12.2MM SUTURE ROTATOR CUFF - [id number] Suture [place] ANCHOR SUTURETAK FIBERWIRE 3MM 2 PEEK 12.2MM SUTURE ROTATOR CUFF [employer] [id number] Right 1 Implanted Estimated Blood Loss: 0 ml Specimens: None Complications: None I/primary surgeon/proceduralist performed the procedure with assistance. Fellow closed, under direct supervision and the remainder of the procedure was performed by the primary surgeon/proceduralist with assistance. POSTOPERATIVE PLAN: Sling for 4 weeks. Phase 1 program for 6 weeks. SIGNATURE: Corby Esparza MD PATIENT NAME: Paola Jacobo DATE: January 09, 2020 TIME: 11:21 AM PAGER/CONTACT #: [facility] HOSPon 08-10-2019 [facility] Patient:Светлана Jacobo MRN: Height:5' 5 (1.651 m) Weight:185 lb (83.915 kg) Outpatient Medications as of 01/09/20: oxyCODONE-acetaminophen (PERCOCET) 5-325 mg tablet traMADol (ULTRAM) 50 mg tablet sulfamethoxazole/trimeth oprim (BACTRIM ORAL) LIBRAX, WITH CLINIDIUM, 5-2.5 mg per capsule pantoprazole DR (PROTONIX) 40 mg tablet gabapentin (NEURONTIN) 400 mg capsule oxaprozin (DAYPRO) 600 mg tablet tiZANidine (ZANAFLEX) 4 mg tablet Admission/Clinic Administered Medications as of 01/09/20: lidocaine 10 mg/mL (1 %) 1-2 mg injection (XYLOCAINE) lactated ringers infusion ceFAZolin iv piggyback 2 g in D5W (iso-osmotic) 100 mL (ANCEF) Problem List: Osteoarthrosis, unspecified whether generalized or localized, lower leg [M17.10] Other affections of shoulder region, not elsewhere classified [M25.819] Microscopic hematuria [R31.29] Instability of finger joint [M25.349] Trigger middle finger of right hand [M65.331] Pain in limb [M79.609] Localized osteoarthrosis not specified whether primary or secondary, hand [M19.049] Pain in joint, hand [M25.549] Adrenal adenoma [D35.00] Adrenal mass, left (HCC) [E27.8] Lumbar hernia [K45.8] Status post total bilateral knee replacement [Z96.653] Hallux valgus of right foot [M20.11] Hammer toes of both feet [M20.41, M20.42] Metatarsalgia of right foot [M77.41] DJD (degenerative joint disease), ankle and foot, right [M19.071] Rotator cuff tear arthropathy, right [M75.101, M12.811] Rotator cuff syndrome of right shoulder [M75.101] Allergies: Morphine Date Verified: 01/09/20 Lab Values No results within the last 30 days for the following basenames: K,HCT No progress notes entered within the past 30 days [facility] ANES [place] 03-14-2019 ANES POST HNO ID: [id number] Author: Avinash Emmanuel Service: ? Author Type: Physician Type: Anesthesia PostOp Filed: 03/14/2019 11:44 AM Note Text: POST ANESTHESIA EVALUATION NOTE SERVICE DATE: 03/14/2019 SERVICE TIME: 11:44 : 1960 Vitals: 03/14/19 0731 03/14/19 1018 03/14/19 1100 Temp: 36.7 ?C (98 ?F) 36.7 ?C (98.1 ?F) 36.6 ?C (97.9 ?F) 03/14/19 1018 03/14/19 1030 03/14/19 1045 03/14/19 1100 BP: 106/64 105/67 107/67 107/64 03/14/19 1018 03/14/19 1030 03/14/19 1045 03/14/19 1100 Pulse: 79 74 72 73 03/14/19 1018 03/14/19 1030 03/14/19 1045 03/14/19 1100 Resp: 15 19 18 16 03/14/19 1018 03/14/19 1030 03/14/19 1045 03/14/19 1100 SpO2: 93% 93% 96% 96% Validated Vital Signs: Yes POST ANES STATUS: No apparent anesthetic complications. The patient is appropriately hydrated with stable respiratory and cardiovascular status. Patient has safe and adequate airway control. The patient has appropriate pain relief and no significant post operative nausea or vomiting. The patient has achieved baseline mental status. Intra-Operative Events: No Significant Anesthesia Events Further assessment by Anesthesia Service: None Other Remarks: SIGNATURE: Avinash Emmanuel MD PATIENT NAME: Paola Jacobo DATE: March 14, 2019 TIME: 11:44 AM PAGER/CONTACT #: [facility] ANES PREOPon 03-14-2019 ANES PREOP HNO ID: [id number] Author: Avinash Emmanuel Service: ? Author Type: Physician Type: Anesthesia PreOp Filed: 03/14/2019 8:01 AM Note Text: ANESTHESIOLOGY DAY OF SURGERY NOTE SERVICE DATE: 03/14/2019 SERVICE TIME:8:00 : 1960 Procedure(s) (LRB): ARTHROSCOPY SHOULDER W/ DEBRIDEMENT EXTENSIVE (Right) Surgeon(s): Corby Esparza Estimated body mass index is 32.62 kg/m? as calculated from the following: Height as of 01/31/19: 165.1 cm (5' 5 ). Weight as of this encounter: 88.9 kg (196 lb). Most recent hematocrit and potassium results: Hematocrit 32.8 02/06/2014 Potassium 3.4 02/06/2014 ANES DOS/PREOP NOTE: Vitals: 03/14/19 0731 BP: 117/61 Pulse: 70 Resp: 16 Temp: 36.7 ?C (98 ?F) SpO2: 98% Weight: 88.9 kg (196 lb) ACTIVE PROBLEM LIST Osteoarthrosis, Unspecified Whether Generalized Or Localized, Lower Leg Other Affections of Shoulder Region, Not Elsewhere Classified Microscopic Hematuria Instability of Finger Joint Trigger Middle Finger of Right Hand Pain in Limb Localized Osteoarthrosis Not Specified Whether Primary Or Secondary, Hand Pain in Joint, Hand Adrenal Adenoma Adrenal Mass, Left (Hcc) Lumbar Hernia Status Post Total Bilateral Knee Replacement Hallux Valgus of Right Foot Hammer Toes of Both Feet Metatarsalgia of Right Foot Djd (Degenerative Joint Disease), Ankle and Foot, Right Rotator Cuff Tear Arthropathy, Right Rotator Cuff Syndrome of Right Shoulder PAST MEDICAL HISTORY Diagnosis Date - Adrenal adenoma - Fracture - Generalized osteoarthrosis, unspecified site General Osteoarthritis - Nonspecific abnormal results of liver function study SECONDARY TO MONONUCLEOSIS - Personal history of unspecified urinary disorder - Urinary tract infection, site not specified recurrent PAST SURGICAL HISTORY Procedure Laterality Date - ADRENALECTOMY 05/05 left, robotic - ARTHROSCOPY, SHOULDER, SURGI 02/01 Right - ARTHROSCOPY, SHOULDER, SURGI 08/31 Left - BIOPSY OF OVARY(S) remote two dermoid cysts - CYSTOSCOPY,+URETEROSCOPY 05/2007 - PAST SURGICAL HISTORY OF 09/29/03 Diagnostic flexible hysteroscopy, dilatation and curettage and ThermaChoice endometrial ablation - PAST SURGICAL HISTORY OF 2002 orif right ulna with plate and subsequent removal - PAST SURGICAL HISTORY OF 2005 Bilateral bunionectomies - PAST SURGICAL HISTORY OF 05-01 bilateral toe surgery - PAST SURGICAL HISTORY OF 2006 right knee replacement - PAST SURGICAL HISTORY OF 08-01 left hammertoe and neuroma - REMOVAL OF OVARY(S) mid left - TOTAL ABDOM HYSTERECTOMY 04-01 Hysterectomy, MUKUL - TOTAL KNEE REPLACEMENT 09/07/06 Right, Tan BARROSO MD - TOTAL KNEE REPLACEMENT 07/13/07 Left, Tan BARROSO MD FAMILY HISTORY Problem Relation Age of Onset - Breast Cancer Maternal Grandmother - Diabetes Mother adult onset - other (Bladder cancer) Father Social History: Social History Tobacco Use - Smoking status: Never Smoker - Smokeless tobacco: Never Used Substance Use Topics - Alcohol use: Yes Alcohol/week: 2.5 standard drinks Types: 1 Glasses of Wine (5oz) per week Comment: occasional - Drug use: No No current facility-administered medications on file prior to encounter. Current Outpatient Medications on File Prior to Encounter Medication Sig - LIBRAX, WITH CLINIDIUM, 5-2.5 mg per capsule - pantoprazole DR (PROTONIX) 40 mg tablet - gabapentin (NEURONTIN) 400 mg capsule - tiZANidine (ZANAFLEX) 4 mg tablet Take 2 tablets by mouth at bedtime as needed. - traMADol 50 mg tablet Take 50 mg by mouth as needed. - sulfamethoxazole/trimeth oprim (BACTRIM ORAL) Take by mouth as directed. - oxaprozin (DAYPRO) 600 mg tablet 600 mg twice daily. No current facility-administered medications for this encounter. Allergies: ALLERGIES Allergen Reactions - Morphine rash DOS EXAM: Adequate NPO status: Yes Anesthetic risks, benefits, alternatives, personnel and consent discussed: Yes Patient agrees to proceed: Yes Previous Anesthesia: No history of adverse event. Airway Assessment: MP 2; Neck ROM: Full ROM without neurologic symptoms; Airway Evaluation: No significant abnormalities Symptoms of Sleep Apnea: Age over 50 (58 year old) Dentition: Teeth intact Additional Physical Exam: Lungs: normal vesicular breath sounds Cardiac: normal S1 and S2; no rubs, no murmurs, and no gallops Additional Pertinent Findings: N/A Blood Products: Not anticipated for this procedure. Anesthetic Plan: General, Standard ASA Monitors Pain Management Plan: Parenteral or Oral and Peripheral Nerve Block ASA Class: 2 Other Medical Problems: None Chronic Beta Dixon medication administered within 24 hours: N/A I have interviewed and examined the patient. I have reviewed the medical record and/or the pre-anesthesia evaluation, pertinent labs, and test results. Significant changes in the patient's condition since the History and Physical, not otherwise documented in primary service progress notes: No This contains updated information obtained within 48 hours of Surgery/Procedure. SIGNATURE: Avinash Emmanuel MD PATIENT NAME: Paola Jacobo DATE: March 14, 2019 TIME: 8:00 AM CSN: [id number] [facility] BRIEF OP NOTon 03-14-2019 BRIEF OP NOT HNO ID: [id number] Author: Brandon Perez MD (Fel) Service: Orthopaedic Surgery Author Type: Fellow Type: Brief Op Note Filed: 03/14/2019 10:15 AM Note Text: BRIEF OP NOTE LOG ID: [id number] Surgery/Procedure Date: 03/14/2019 Incision/Procedure Start Time: 9:33 AM Incision Close/Procedure End Time: 10:06 AM Surgeon(s)/Proceduralist (s) and Senior Data Analyst(s): Surgeon(s) and Role: * Corby Esparza - Primary * Brandon Perez MD (Fel) - Fellow Procedure(s): Right shoulder arthroscopic rotator cuff debridement, biceps tenotomy Anesthesia: General Findings: see op note Estimated Blood Loss: 5 mls Specimens: None Complications: None Pre-Op/Pre-Procedure Diagnosis: Rotator cuff tear, right, Traumatic partial tear of biceps tendon, right, subsequent encounter Post-Op/Post-Procedure Diagnosis: Rotator cuff tear, right, Traumatic partial tear of biceps tendon, right, subsequent encounter SIGNATURE: Brandon Perez MD PATIENT NAME: Paola Jacobo DATE: March 14, 2019 TIME: 10:14 AM PAGER/CONTACT #: [facility] OPERATIVE NOon 03-14-2019 OPERATIVE NO HNO ID: [id number] Author: Corby Esparza Service: Orthopaedic Surgery Author Type: Physician Type: Operative Report Filed: 03/14/2019 10:25 AM Note Text: Paola Jacobo [id number] LOG ID: [id number] Surgery/Procedure Date: 03/14/2019 Incision/Procedure Start Time: 9:33 AM Incision Close/Procedure End Time: 10:06 AM Surgeon(s)/Proceduralist (s) and Senior Data Analyst(s): Surgeon(s) and Role: * Corby Esparza - Primary * Brandon Perez MD (Fel) - Fellow Physician Senior Data Analyst: Ramana Hamlin (Pa) Anesthesia: General Pre-Op/Pre-Procedure Diagnosis: Chronic complete Rotator cuff tear, right, Traumatic partial tear of biceps tendon, right, subsequent encounter Post-Op/Post-Procedure Diagnosis:Chronic complete Rotator cuff tear, right; rotator cuff tear arthropathy right shoulder; Traumatic partial tear of biceps tendon, right, subsequent encounter Procedure: Arthroscopic Debridement Right shoulder Additional Procedure(s): Arthroscopic proximal biceps tenotomy right shoulder Operative Indications: Persistent symptoms despite approriate non-operative treatment Operative Findings: Rotator cuff tear arthropathy with grade 3 and 4 changes diffusely seen on both sides the joint. Large chronic retracted supraspinatus and infraspinatus tear. Partial tearing of the proximal biceps. Significant spur on the greater tuberosity. DESCRIPTION OF OPERATION: The patient was identified by name and birthdate in the pre-operative area and the operative site marked by the surgical team. After regional anesthesia, she was brought to the operating room and placed into the supine on the operating table. Examination was performed demonstrating full passive motion. The patient was subsequently placed into the lateral decubitus position. The arm was prepped and draped in the usual sterile fashion. Time-out and site identification were performed. The arthroscope was introduced into the glenohumeral joint through a standard posterior portal. Outflow was established in the rotator interval with a small cannula. A complete diagnostic arthroscopy was performed demonstrating the above findings. Extensive debridement of all loose, damaged and frayed tissue was performed in all compartments. Partial synovectomy was performed where indicated. Appropriate chondroplasty was performed as indicated in affected areas. Biceps tenotomy was performed with a meniscal scissor. The arthroscope was moved to the subacromial space. Subacromial bursectomy was performed.Hypertrophic and frayed tissue of the CA ligament was removed. The bone-cutting shaver was used to perform appropriate tuberoplasty leaving a flat, smooth greater tuberosity. Attention was directed to the acromioclavicular joint. An anterior cannula was placed directly beneath the joint. The bone-cutting shaver was used to remove 3 mm of the acromial side of the joint. Joint was entered demonstrating severe arthrosis and multiple loose bodies. There were cystic changes along the entire distal clavicle. A cautery device was used to carefully outline the distal clavicle with care taken to avoid disrupting the ligaments. The bur was used to remove approximately 5-6 mm of the distal clavicle eliminating the arthrosis. The joint was flushed until clear of any debris. The arthroscope, instruments and cannulas were removed. Incisions were closed in routine fashion. A sterile bandage was applied. The arm was placed into a sling. The patient was awakened and transported to the recovery room in satisfactory condition, having tolerated the procedure well. Implants: * No implants in log * Estimated Blood Loss: 0 ml Specimens: None Complications: None I/primary surgeon/proceduralist performed the procedure with assistance. Fellow performed the procedure, under direct supervision and the remainder of the procedure was performed by the primary surgeon/proceduralist with assistance. POSTOPERATIVE PLAN: Sling as needed for comfort. Limited weightbearing on the shoulder. SIGNATURE: Corby Esparza MD PATIENT NAME: Paola Prieto Odalis DATE: March 14, 2019 TIME: 10:22 AM PAGER/CONTACT #: [facility] OPERATIVE NO HNO ID: [id number] Author: Corby Esparza Service: Orthopaedic Surgery Author Type: Physician Type: Operative Report Filed: 03/14/2019 11:52 AM Note Text: Paola Teebrigitte [id number] LOG ID: [id number] Surgery/Procedure Date: 03/14/2019 Incision/Procedure Start Time: 9:33 AM Incision Close/Procedure End Time: 10:06 AM Surgeon(s)/Proceduralist (s) and Senior Data Analyst(s): Surgeon(s) and Role: * Corby Esparza - Primary * Brandon Perez MD (Fel) - Fellow Physician Senior Data Analyst: Ramana Hamlin (Pa) Anesthesia: General Pre-Op/Pre-Procedure Diagnosis:Rotator cuff tear subscapularis, right, Traumatic partial tear of biceps tendon, right, subsequent encounter Post-Op/Post-Procedure Diagnosis: Rotator cuff subscapularis tear, right, Traumatic complete tear of biceps tendon, right, subsequent encounter Operative Indications: Persistent symptoms despite approriate non-operative treatment Procedure: Arthroscopic Rotator Cuff Subscapularis Repair Right Shoulder Additional Procedure(s): none Operative Findings: Full thickness tear:Subscapularis Tear size: Small Biceps Tendon: Complete Tear Articular Surfaces normal. DESCRIPTION OF OPERATION: The patient was identified by name and birthdate in the pre-operative area and the operative site marked by the surgical team. After regional anesthesia, she was brought to the operating room and placed supine on the operating table. After general anesthesia, the shoulder was examined demonstrating full passive motion. she was subsequently placed into the lateral decubitus position. The shoulder was prepped and draped in the usual sterile fashion. Time-out and site identification were performed. The arthroscope was introduced in the glenohumeral joint through a posterior portal with a small outflow cannula established in the rotator interval. A complete diagnostic arthroscopy of the entire glenohumeral joint was performed demonstrating the above findings. The biceps tendon was absent with no remnant. The subscapularis tendon was along its top edge and partially detached from the tuberosity. The rest of the joint looked good. A cannula was placed high and lateral in the rotator interval. Shaver is introduced and the rotator cuff subscapularis tendon debrided. The anatomic attachment site of the tendon was debrided with the shaver down to lightly bleeding bone. The lasso was then used to pass a loop of fiber Link suture through the healthy portion of the tendon. This was then looped around the tendon and secured to the tuberosity using a swivel lock suture anchor placed using standard technique. This restored the footprint and appropriate tension on the subscapularis. The arthroscope was moved into the subacromial space. A lateral PassPort cannula was placed. Subacromial bursectomy was performed. Hypertrophic CA ligament was debrided. The undersurface the rotator cuff was completely normal. Bleeding points were cauterized and the subacromial space was flushed until clear of any particulate matter. The arthroscope, instruments and cannulas were removed. Incisions were closed with 2-0 absorbable and 3-0 Monocryl sutures. A sterile bandage was applied and the arm was placed into a sling with a small abduction pillow. An ice pack was placed onto the shoulder. The patient was awakened and transported to recovery room in satisfactory condition, having tolerated the procedure well. Implants: * No implants in log * Estimated Blood Loss: 0 ml Specimens: None Complications: None I/primary surgeon/proceduralist performed the procedure with assistance. Fellow opened and closed, under direct supervision and the remainder of the procedure was performed by the primary surgeon/proceduralist with assistance. POSTOPERATIVE PLAN: Sling for 4 weeks. Phase 1 program for 6 weeks. SIGNATURE: Corby Esparza MD PATIENT NAME: Paola Jacobo DATE: March 14, 2019 TIME: 11:44 AM PAGER/CONTACT #: [facility] PT EDon 03-14-2019 PT ED HNO ID: [id number] Author: Lesly YanesRn) ALFREDA Lanza Service: Nursing Author Type: Registered Nurse Type: Patient Education Filed: 03/14/2019 11:04 AM Note Text: POST OP LEARNING RESPONSE INSTRUCTION PROVIDED TO: Patient and Spouse METHOD OF INSTRUCTION: Written instruction - handouts Verbal instruction Demonstration-Hands on Learning PATIENT / FAMILY RESPONSE: Information received as demonstrated by interest and questions FOLLOW-UP PLAN: Follow-up with Primary Care SUPPLEMENTAL MATERIAL: None REFERRAL (RECOMMENDATION): None Electronically Signed By: Lesly Lanza RN In Department: [facility] AMBULATORY SURGERY - [facility] NURSING PROGon 01-31-2019 NURSING PROG HNO ID: [id number] Author: Zully YanesRn) ALFREDA Fuentes Service: ? Author Type: Registered Nurse Type: Nursing Progress Note Filed: 01/31/2019 2:26 PM Note Text: PACC Nurse Progress Note History AND Physical: PACC Visit Date: 01-31-19 Original HANDP Date: 01-31-19 ED visit Date: N/A Outside HANDP Scanned Date: N/A Labs Within Last 6 Months: N/A Imaging Within Last 12 Months: See chart Cardiac Testing: N/A Last Menstrual Period: LMP Date: N/A Postmenopausal >1yr: N/A, S/P Hysterectomy: Yes BMI Percentile (PEDS): N/A Risk Assessment: N/A Anesthesia Review: N/A Narrative: Patient had PACC/ HANDP on 01-31-19. No consults or testing ordered by PACC provider. Patient has had hysterectomy. Zully Fuentes RN Pre-op Considerations: GERD Hx adrenalectomy 2012- adenoma Chart Check: COMPLETED Zully Fuentes RN January 31, 2019 2:24 PM [facility] HOSPon 01-29-2019 HOSP Patient:Светлана Jacobo MRN: Height:5' 5 (1.651 m) Weight:No patient weight recorded within the last 30 days. Outpatient Medications as of 03/14/19: oxyCODONE-acetaminophen (PERCOCET) 5-325 mg tablet sulfamethoxazole/trimeth oprim (BACTRIM ORAL) LIBRAX, WITH CLINIDIUM, 5-2.5 mg per capsule pantoprazole DR (PROTONIX) 40 mg tablet gabapentin (NEURONTIN) 400 mg capsule oxaprozin (DAYPRO) 600 mg tablet tiZANidine (ZANAFLEX) 4 mg tablet traMADol 50 mg tablet Admission/Clinic Administered Medications as of 03/14/19: scopolamine 1 mg over 3 days 1 Patch (TRANSDERM-SCOP) scopolamine - VERIFY patch scopolamine - REMOVE PATCH Problem List: Osteoarthrosis, unspecified whether generalized or localized, lower leg [M17.10] Other affections of shoulder region, not elsewhere classified [M75.80] Microscopic hematuria [R31.29] Instability of finger joint [M25.349] Trigger middle finger of right hand [M65.331] Pain in limb [M79.609] Localized osteoarthrosis not specified whether primary or secondary, hand [M19.049] Pain in joint, hand [M25.549] Adrenal adenoma [D35.00] Adrenal mass, left (HCC) [E27.8] Lumbar hernia [K45.8] Status post total bilateral knee replacement [Z96.653] Hallux valgus of right foot [M20.11] Hammer toes of both feet [M20.41, M20.42] Metatarsalgia of right foot [M77.41] DJD (degenerative joint disease), ankle and foot, right [M19.071] Rotator cuff tear arthropathy, right [M75.101, M12.811] Rotator cuff syndrome of right shoulder [M75.101] Allergies: Morphine Date Verified: 03/14/19 Lab Values No results within the last 30 days for the following basenames: K,HCT No progress notes entered within the past 30 days [facility] Vital Signs Date Time Vital Sign Value Performing Clinician Facility 12-09-2022 13:00-0400 Body height 165.1 cm Veronica Anguiano Other [facility] Other 12-09-2022 13:00-0400 Body mass index (BMI) [Ratio] 32.36 kg/m2 Veronica Anguiano Other [facility] Other 12-09-2022 13:00-0400 Body weight 88.23 kg Veronica Anguiano Other [facility] Other 08-20-2022 08:30-0400 Body height 165.1 cm Veronica Anguiano Other [facility] Other 08-20-2022 08:30-0400 Body mass index (BMI) [Ratio] 33.19 kg/m2 Veronica Anguiano Other [facility] Other 08-20-2022 08:30-0400 Body weight 90.49 kg Veronica Anguiano Other [facility] Other 08-20-2022 08:30-0400 Diastolic blood pressure 88 mm[Hg] Veronica Anguiano Other [facility] Other 08-20-2022 08:30-0400 Respiratory rate 18 /min Veronica Anguiano Other [facility] Other 08-20-2022 08:30-0400 SaO2% (BldA) [Mass fraction] 98 % Veronica Anguiano Other [facility] Other 08-20-2022 08:30-0400 Systolic blood pressure 134 mm[Hg] Veronica Anguiano Other [facility] Other 07-03-2022 09:40-0400 Body height 165.1 cm May Richardson MD Work Phone: [facility] 07-03-2022 09:40-0400 Body weight 91.58 kg May Richardson MD Work Phone: [facility] 07-03-2022 09:40-0400 Diastolic blood pressure 84 mm[Hg] May Richardson MD Work Phone: [facility] 07-03-2022 09:40-0400 Heart rate 70 /min May Richardson MD Work Phone: [facility] 07-03-2022 09:40-0400 Systolic blood pressure 121 mm[Hg] May Richardson MD Work Phone: [facility] 06-19-2022 10:45-0400 Body height 165.1 cm Veronica Anguiano Other [facility] Other 06-19-2022 10:45-0400 Body mass index (BMI) [Ratio] 33.19 kg/m2 Veronica Anguiano Other [facility] Other 06-19-2022 10:45-0400 Body weight 90.49 kg Veronica Anguiano Other [facility] Other 06-19-2022 10:45-0400 Diastolic blood pressure 87 mm[Hg] Veronica Sweetie Other [facility] Other 06-19-2022 10:45-0400 Respiratory rate 18 /min Veronicalenin Bishopdiff Other [facility] Other 06-19-2022 10:45-0400 SaO2% (BldA) [Mass fraction] 99 % Veronicalenin Bishopdiff Other [facility] Other 06-19-2022 10:45-0400 Systolic blood pressure 125 mm[Hg] Veronica Sweetie Other [facility] Other 03-04-2022 12:00-0500 Body height 165.1 cm Veronicalenin Bishopdiff Other [facility] Other 03-04-2022 12:00-0500 Diastolic blood pressure 78 mm[Hg] Veronica Sweetie Other [facility] Other 03-04-2022 12:00-0500 Respiratory rate 18 /min Veronicalenin Bishopdiff Other [facility] Other 03-04-2022 12:00-0500 SaO2% (BldA) [Mass fraction] 98 % Veronicalenin Bishopdiff Other [facility] Other 03-04-2022 12:00-0500 Systolic blood pressure 118 mm[Hg] Veronica Sweetie Other [facility] Other 01-07-2022 14:15-0500 Body height 165.1 cm Laly Waller Other [facility] Other 12-31-2021 09:45-0500 Body height 165.1 cm Veronica Bishopdiff Other [facility] Other 12-31-2021 09:45-0500 Body mass index (BMI) [Ratio] 34.59 kg/m2 Veronica Bishopdiff Other [facility] Other 12-31-2021 09:45-0500 Body weight 94.3 kg Veronica Bishopdiff Other [facility] Other 12-31-2021 09:45-0500 Diastolic blood pressure 81 mm[Hg] Veronica Bishopdiff Other [facility] Other 12-31-2021 09:45-0500 Respiratory rate 18 /min Veronica Bishopdiff Other [facility] Other 12-31-2021 09:45-0500 SaO2% (BldA) [Mass fraction] 96 % Veronica Bishopdiff Other [facility] Other 12-31-2021 09:45-0500 Systolic blood pressure 123 mm[Hg] Veronica Bishopdiff Other [facility] Other 11-19-2021 09:30-0400 Body height 165.1 cm Veronica Bishopdiff Other [facility] Other 11-19-2021 09:30-0400 Body mass index (BMI) [Ratio] 35.34 kg/m2 Veronica Bishopdiff Other [facility] Other 11-19-2021 09:30-0400 Body weight 96.34 kg Veronica Anguiano Other [facility] Other 11-19-2021 09:30-0400 Diastolic blood pressure 81 mm[Hg] Veronica Anguiano Other [facility] Other 11-19-2021 09:30-0400 Respiratory rate 18 /min Veronica Bishopdiff Other [facility] Other 11-19-2021 09:30-0400 SaO2% (BldA) [Mass fraction] 96 % Veronica Bishopdiff Other [facility] Other 11-19-2021 09:30-0400 Systolic blood pressure 132 mm[Hg] Veronica Sweetie Other [facility] Other 10-29-2021 09:15-0400 Body height 165.1 cm Laly Waller Other [facility] Other 10-24-2021 09:32-0400 Body height 165.1 cm May Richardson MD Work Phone: [facility] 10-24-2021 09:32-0400 Body weight 97.7 kg May Richardson MD Work Phone: [facility] 10-24-2021 09:32-0400 Diastolic blood pressure 79 mm[Hg] May Richardson MD Work Phone: [facility] 10-24-2021 09:32-0400 Heart rate 74 /min May Richardson MD Work Phone: [facility] 10-24-2021 09:32-0400 Systolic blood pressure 133 mm[Hg] May Richardson MD Work Phone: [facility] 07-04-2021 11:31-0400 Body height 165.1 cm May Richardson MD Work Phone: [facility] 07-04-2021 11:31-0400 Body temperature 97.59 [degF] May Richardson MD Work Phone: [facility] 07-04-2021 11:31-0400 Body weight 95.25 kg May Richardson MD Work Phone: [facility] 07-04-2021 11:31-0400 Diastolic blood pressure 81 mm[Hg] May Richardson MD Work Phone: [facility] 07-04-2021 11:31-0400 Heart rate 79 /min May Richardson MD Work Phone: [facility] 07-04-2021 11:31-0400 Systolic blood pressure 124 mm[Hg] May Richardson MD Work Phone: [facility] 06-07-2021 10:57-0400 Body height 165.1 cm May Richardson MD Work Phone: [facility] 06-07-2021 10:57-0400 Body temperature 97.39 [degF] May Richardson MD Work Phone: [facility] 06-07-2021 10:57-0400 Body weight 96.48 kg May Richardson MD Work Phone: [facility] 06-07-2021 10:57-0400 Diastolic blood pressure 69 mm[Hg] May Richardson MD Work Phone: [facility] 06-07-2021 10:57-0400 Heart rate 75 /min May Richardson MD Work Phone: [facility] 06-07-2021 10:57-0400 Systolic blood pressure 118 mm[Hg] May Richardson MD Work Phone: [facility] 02-04-2021 11:15-0500 Body height 165.1 cm Bairon Garcia Other [facility] Other 02-04-2021 11:15-0500 Body mass index (BMI) [Ratio] 33.28 kg/m2 Bairon Garcia Other [facility] Other 02-04-2021 11:15-0500 Body weight 90.72 kg Bairon Garcia Other [facility] Other Encounters Encounter Date Encounter Type Care Provider Facility Start: 01-28-2023 End: 01-28-2023 ambulatory Veronica Anguiano Other [facility] Other Start: 01-28-2023 Telephone encounter [facility] Start: 12-17-2022 ambulatory [facility] Facility:[facility] Start: 12-09-2022 (Televisit) Televisit Veronica Anguiano [facility] Start: 12-09-2022 End: 12-09-2022 ambulatory Ion Mccabe [facility] Other Start: 08-20-2022 End: 08-20-2022 ambulatory Veronica Anguiano Other [facility] Other Start: 08-20-2022 Follow-up encounter Veronica pulliam [facility] Start: 07-22-[address] ION MCCABE Facil ity:[facility] Start: 07-03-2022 End: 07-04-2022 ambulatory MAY RICHARDSON Facility:[facility] Start: 07-03-2022 End: 07-03-2022 Patient encounter procedure May Richardson MD Work Phone: Neurosurgery Comment on above: Spinal stenosis, lum bar region with neurogenic claudication (Primary Dx) Start: 07-03-2022 End: 07-03-2022 Subsequent hospital visit by physician [facility] Comment on above: Spinal stenosis of l umbar region with neurogenic claudication [M48.062] Start: 06-27-2022 End: 06-28-[address] ION MCCABE Facility: Start: 06-25-2022 End: 06-25-2022 ambulatory Veronica Anguiano Other [facility] Other Start: 06-25-2022 Telephone encounter Veronica [facility] Start: 06-19-2022 End: 06-19-2022 ambulatory Veronica Anguiano Other [facility] Other Start: 06-19-2022 Follow-up encounter Veronica pull[facility] Start: 06-13-2022 End: 06-14-[address] ION CMCABE Facility:[facility] Start: 06-03-2022 End: 06-04-2022 amb[facility] Start: 05-20-2022 End: 05-21-2022 ambulatory JEREMIAS D [facility] Facility:[facility] Start: 05-16-2022 End: 05-16-2022 ambulatory Veronica Anguiano Other [facility] Other Start: 05-16-2022 Telephone encounter Veronica [facility] Start: 05-14-2022 End: 05-15-2022 ambulatory PETER D HIGHLANDER Facility:[facility] Start: 05-07-2022 End: 05-08-2022 ambulatory PETER D [facility] Facility:[facility] Start: 04-30-2022 End: 05-01-2022 ambulatory PETER D [facility] Facility:[facility] Start: 04-25-2022 Encounter for prepro cedural cardiovascular examination [facility] N[facility] Start: 04-25-2022 Encounter for prepro cedural laboratory examination [facility] Ney [facility] Start: 04-24-2022 End: 04-24-2022 ambulatory JEREMIAS D HIGHLANDER Facility:[facility] Start: 04-22-2022 End: 04-22-2022 ambulatory Veronica Anguiano Other [facility] Other Start: 04-22-2022 Telephone encounter Veronica [facility] Start: 04-21-2022 End: 04-22-2022 ambulatory JEREMIAS D HIGHLANDER Facility:[facility] Start: 04-21-2022 End: 04-22-2022 Encounter for preprocedural cardiovascular examination JEREMIAS HICKMAN Facility:[facility] Start: 04-18-2022 End: 04-19-2022 ambulatory JEREMIAS HICKMAN Facility:[facility] Start: 03-11-2022 End: 03-12-[address] ION MCCABE Facility:[facility] Start: 03-06-2022 End: 03-06-2022 ambulatory Veronica Anguiano Other [facility] Other Start: 03-06-2022 Telephone encounter Veronica Anguiano [facility] Start: 03-05-2022 Telephone encounter Veronica Anguiano [facility] Start: 03-05-2022 End: 03-06-2022 ambulatory VERONICA ANGUIANO [facility] Other Start: 03-04-2022 End: 03-04-2022 ambulatory Veronica Anguiano Other [facility] Other Start: 03-04-2022 Follow-up encounter Veronica Anguiano [facility] Start: 02-17-2022 End: 02-17-[address] ION MCCABE Facility:[facility] Start: 02-13-2022 End: 02-13-2022 ambulatory Veronica Anguiano Other [facility] Other Start: 02-13-2022 Telephone encounter [facility]onica [facility] Start: 02-10-2022 End: 02-10-[address] ION MCCABE Facility:[facility] Start: 02-10-2022 Encounter for prepro cedural laboratory examination JEREMIAS HICKMAN [facility] Start: 02-06-2022 End: 02-07-2022 ambulatory JEREMIAS HICKMAN Facility:[facility] Start: 02-06-2022 End: 02-07-2022 Encounter for preprocedural laboratory examination JERMEIAS HICKMAN Facility:[facility] Start: 01-25-2022 Encounter for other preprocedural examination JEREMIAS HICKMAN [facility] Start: 01-21-2022 End: 01-21-2022 ambulatory Veronica Anguiano Other [facility] Other Start: 01-21-2022 Telephone encounter Veronica [facility] Start: 01-20-2022 End: 01-21-2022 ambulatory [facility] Facility: Start: 01-20-2022 End: 01-21-2022 Encounter for other preprocedural examination [facility] Facility: Start: 01-07-2022 End: 01-07-2022 ambulatory Laly Fitt Other [facility] Other Start: 01-07-2022 IBT for Obesity init ial 30 min (Max charge 2 units) Laly Casperjenna [facility] Start: 12-31-2021 End: 12-31-2021 ambulatory Veronica Anguiano Other [facility] Other Start: 12-31-2021 Follow-up encounter Veronica [facility] Start: 12-24-2021 End: 12-24-2021 ambulatory Veronica Anguiano Other [facility] Other Start: 12-24-2021 Telephone encounter Veronica [facility] Start: 12-04-2021 End: 12-05-2021 ambulatory [facility] Facility: Start: 11-19-2021 End: 11-19-2021 ambulatory Veronica Anguiano Other [facility] Other Start: 11-19-2021 Follow-up encounter [facility] Start: 10-29-2021 End: 10-29-2021 ambulatory Laly Fitt Other [facility] Other Start: 10-29-2021 IBT FOR OBESITY GROU P 2-10 30M Laly Fitt [facility] Start: 10-24-2021 End: 10-24-2021 ambulatory MAY RICHARDSON Facility:[facility] Start: 10-24-2021 End: 10-24-2021 Patient encounter procedure May Richardson MD Work Phone: Neurosurgery Comment on above: Spinal stenosis of l umbar region with neurogenic claudication (Primary Dx) Start: 08-12-2021 End: 08-12-2021 ambulatory Veronica Anguiano Other [facility] Other Start: 08-12-2021 Telephone encounter Veronica Anguiano [facility] Start: 07-07-2021 ambulatory May Richardson MD Work Phone: Neurosurgery Comment on above: Medications Start: 07-04-2021 End: 07-04-2021 Patient encounter procedure May Richardson MD Work Phone: Neurosurgery Comment on above: Spinal stenosis, lum bar region, with neurogenic claudication (Primary Dx) Start: 06-07-2021 End: 06-07-2021 Patient encounter procedure May Richardson MD Work Phone: Neurosurgery Comment on above: Spinal stenosis, lum bar region, with neurogenic claudication (Primary Dx) Start: 2021 Refill May Richardson MD Work Phone: Neurology Comment on above: Refill Request Start: 05-24-2021 Orders Only Emely Baltazar Work Phone: Neurosurgery Comment on above: Spondylolisthesis at L4-L5 level (Primary Dx); Post-operative state Start: 02-04-2021 End: 02-04-2021 ambulatory Bairon Garcia Other [facility] Other Start: 02-04-2021 Office outpatient vi sit 15 minutes Bairon Garcia [facility] [place] Start: 01-21-2021 (Procedure) Short Bairon Garcia [facility] Start: 01-21-2021 End: 01-21-2021 ambulatory Bairon Garcia Other [facility] Other Start: 01-09-2021 End: 01-09-2021 ambulatory Bairon Garcia Other [facility] Other Start: 01-09-2021 Office outpatient vi sit 25 minutes Bairon Bronsonnakita [facility] [place] Procedures Date Procedure Procedure Detail Performing Clinician Start: 10-20-2021 Adult depression scr eening assessment May Richardson MD Work Phone: Start: 06-27-2021 Adult depression scr eening assessment May Richardson MD Work Phone: Start: 05-31-2021 Adult depression scr eening assessment May Richardson MD Work Phone: Start: 05-06-2021 Adult depression scr eening assessment Emely Bonilla PA-C Work Phone: Start: 02-29-2008 Mammography Emely szymanski PA-C Work Phone: Plan of Treatment Date Care Activity Detail Author Start: 05-26-2024 DIABETES SCREEN DIABETES SCREEN [facility] Start: 05-24-2024 DIABETES SCREEN DIABETES SCREEN [facility] Start: 10-20-2022 Adult depression screening assessment DEPRESSION SCREENING [facility] Start: 06-27-2022 Adult depression screening assessment DEPRESSION SCREENING [facility] Start: 05-31-2022 Adult depression screening assessment DEPRESSION SCREENING [facility] Start: 05-06-2022 Adult depression screening assessment DEPRESSION SCREENING [facility] Start: 02-23-2022 DEPRESSION ASSESSMENT DEPRESSION ASS ESSMENT [facility] Start: 10-24-2021 Influenza vaccination [facility] Start: 06-06-2021 COVID-19 VACCINE (4 - Booster for Moderna series) COVID-19 VACCINE (4 - Booster for Moderna series) [facility] Start: 11-07-2009 PAP TESTING PAP TESTING [facility] Start: 02-28-2009 Mammography MAMMOGRAM [facility] Start: 07-30-2008 HPV TESTING HPV TESTING [facility] Start: 2006 COLOGUARD (FIT-DNA) COLOGUARD (FIT-D NA) [facility] Start: 2006 Colonoscopy COLONOSCOPY [facility] Start: 2006 COLORECTAL CANCER SCREENING COLORECTAL CANCER SCREENING [facility] Start: [address] COLONOGRAPHY [facility] Start: 2006 FECAL OCCULT BLOOD FECAL OCCULT BLOO D [facility] Start: 2006 LIPID SCREEN LIPID SCREEN [facility] Start: 2006 SIGMOIDOSCOPY SIGMOIDOSCOPY [facility] Start: 1980 Urine microalbumin profile DTAP,TDAP,TD (1 - Tdap) [facility] Start: 06-06-1979 HIV SCREENING HIV SCREENING [facility] Electrical stimulati on bone healing noninvasive ELECT BONE STIM NONINVASIVE Procedures Routine Spondylolisthesis at L4-L5 level Post-operative state Ordered: 05/24/2021 [facility] Work Phone: Comment on above: Ordered: 05/24/2021 End: 11-23-2022 Radex spine lumbosacral 2/3 views XR LUMBAR LIMITED 2V AP/LAT Radiology Routine Spinal stenosis of lumbar region with neurogenic claudication 1 Occurrences starting 10/24/2021 until 11/23/2022 [facility] Work Phone: Comment on above: 1 Occurrences starti ng 10/24/2021 until 11/23/2022 End: 07-03-2022 Radex spine lumbosacral 2/3 views [facility] Work Phone: Comment on above: 1 Occurrences starti ng 07/03/2022 until 07/03/2022 [facility] Immunizations Immunization Date Immunization Notes Care Provider Fa chiquis 04-20-2020 zoster vaccine recombinant Emely Bonilla PA-C Work Phone: [facility] 02-13-2020 influenza, injectabl e, quadrivalent, contains preservative Emely Bonilla PA-C Work Phone: [facility] 02-13-2020 influenza, injectabl e, quadrivalent, preservative free Emely Bonilla PA-C Work Phone: [facility] 02-13-2020 zoster vaccine recombinant Emely Bonilla PA-C Work Phone: [facility] Payers Date Payer Category Payer Unknown ELISSA CANO SS PPO [id number] 2022-Present [phone] [address] [place] [address] PPO [id number] 2021 Private Health Insurance [facility] CHOICE PLUS [id number] 2021-Present [phone] [address] [place] [address] HMO [id number] 2021 Private Health Insurance [facility] CHOICE PLUS [id number] 2021-Present [phone] [address] [place] [address] HMO [id number] 1961 Unknown [id number] 2.16.840.1.160755.3.579. 2.593 1961 Unknown [id number] 2.16.840.1.763789.3.579. 2.593 1961 Unknown [id number] 2.16.840.1.765627.3.579. 2.593 1961 Unknown [id number] 2.16.840.1.209623.3.579. 2.593 1961 Unknown [id number] 2.16.840.1.681185.3.579. 2.593 1961 Unknown [id number] 2.16.840.1.518143.3.579. 2.593 1961 Unknown [id number] 2.16.840.1.089072.3.579. 2.593 1961 Unknown [id number] 2.16.840.1.608028.3.579. 2.593 1961 Unknown [id number] 2.16.840.1.016173.3.579. 2.593 1961 Unknown [id number] 2.16.840.1.226160.3.579. 2.593 1961 Unknown [id number] 2.16.840.1.889462.3.579. 2.593 1961 Unknown [id number] 2.16.840.1.283322.3.579. 2.593 1961 Unknown [id number] 2.16.840.1.678246.3.579. 2.593 1961 Unknown [id number] 2.16.840.1.924263.3.579. 2.593 1961 Unknown [id number] 2.16.840.1.467806.3.579. 2.593 1961 Unknown [id number] 2.16.840.1.291892.3.579. 2.593 1961 Unknown [id number] 2.16.840.1.955063.3.579. 2.593 1961 Unknown [id number] 2.16.840.1.827559.3.579. 2.718 1961 Unknown [id number] 2.16.840.1.617725.3.579. 2.718 1959 [place] [employer] [facility] [id number] 2.16.840.1.093497. 1959 Private Health Insurance [id number] 2.16.840.1.629263. 1959 Self-pay Unknown [id number] 2.16.840.1.968355.3.579. 2.531 Social History Date Type Detail Facility Start: 10-24-2021 Tobacco smoking status NHIS Never smoked tobacco [facility] Work Phone: Start: 05-14-2021 End: 07-03-2022 Alcohol intake Current drinker of alcohol (finding) [facility] Start: 01-05-2020 History SDOH Alcohol Comment once per month [facility] Start: 1960 Sex Assigned At Not on file C [facility] Start: 05-12-2021 End: 10-24-2021 Exposure to SARS-CoV-2 (event) Not sure [facility] Sex Assigned At Sex Assigned At [facility] Other Start: 10-24-2021 Tobacco use and exposure Smokeless tobacco non-user [facility] Medical Equipment Procedure Code Equipment Code Equipment Origin al Text Equipment Identifier Dates [place] Swivelock 4.75mm Peek 19.1mm Suture Closed Eyelet Vent Sterile - [id number] Start: 01-09-2020 [place] Swivelock 4.75mm Peek 19.1mm Suture Closed Eyelet Vent Sterile - [id number] Start: 01-09-2020 Graft Arthroflex Thk2.5-3.5mm Decellularized Dermis 58r06dp Soft Tissue - [id number] Start: 01-09-2020 Screw Nabil 3 Shanta nium Set Dixon Spine - [id number] Start: 05-22-2021 Mesh Srg [place] x Progrip 6x6 - [id number] Start: 02-03-2014 Comment on above: Description: [place] x Progrip Covidien Mesh Tess Nabil 3 6mm Ti tanium 35mm Spinal Radiolucent - [id number] Start: 05-22-2021 Screw Nabil 3 Serr emilie 6.5mm 45mm Bone Polyaxial Nonsterile Spine - [id number] Start: 05-22-2021 Screw Nabil 3 Serr emilie 6.5mm 50mm Bone Polyaxial Nonsterile Spine - [id number] Start: 05-22-2021 [place] Swivelock C Tigertape 4.75mm Black White Peek 19.1mm Suture Closed - [id number] Start: 01-09-2020 [place] Swivelock C Fibertape 4.75mm Blue Peek 19.1mm Suture Closed Eyelet - [id number] Start: 01-09-2020 [place] Suturetak Fiberwire 3mm 2 Peek 12.2mm Suture Rotator Cuff - [id number] Start: 01-09-2020 [place] Suturetak Fiberwire 3mm 2 Peek 12.2mm Suture Rotator Cuff - [id number] Start: 01-09-2020 Prolift Expandab le Spacer 10mm X 28mm X 8-13mm 7deg [id number] Start: 05-22-2021 Clinical Notes 08-12-2010 to 01-28-2023 Note Date & Type Note Facility 01-28-2023 Evaluation note Encounter Date Diagnosis Assessment Notes Jan, Obesity (BMI 30.0-34.9) (ICD-10 - E66.9) [facility] Other 10-17-2023 Evaluation note* Encounter Date Diagnosis Assessment Notes Treatment Notes Treatment Clinical Notes Nov, Mixed hyperlipidemia (ICD-10 - E78.2) Nov, Obesity (BMI 30.0-34.9) (ICD-10 - E66.9) Nov, Knee osteoarthritis (ICD-10 - M17.9) Nov, Low back derangement syndrome (ICD-10 - M53.86) Nov, Depression, unspecified depression type (ICD-10 - F32.9) Nov, GERD (gastroesophageal reflux disease) (ICD-10 - K21.9) [facility] Other 06-28-2023 Evaluation note* Encounter Date Diagnosis Assessment Notes Treatment Notes Treatment Clinical Notes Jul, Mixed hyperlipidemia (ICD-10 - E78.2) Jul, Obesity (BMI 30.0-34.9) (ICD-10 - E66.9) Jul, Knee osteoarthritis (ICD-10 - M17.9) Jul, Low back derangement syndrome (ICD-10 - M53.86) Jul, Depression, unspecified depression type (ICD-10 - F32.9) Jul, GERD (gastroesophageal reflux disease) (ICD-10 - K21.9) [facility] Other 05-11-2023 NoteHNO ID: [id number] Author: May Richardson MD Service: ? Author Type: Physician Type: Progress Notes Filed: 07/03/2022 12:33 PM Note Text: SPINE SURGERY ESTABLISHED This is an in-person visit. DATE OF SERVICE: 07/03/2022 DATE OF LAST VISIT: 10/24/2021 SUBJECTIVE: HPI:Paola Jacobo is a 62 year old female presenting alone. She is s/p L4-5 laminectomy and transforaminal lumbar interbody fusion, 05/22/2021. At [facility], the patient reported experiencing a mild low back ache. She stated it was nothing serious or unbearable. She denied any pain going down the legs. She stated she was very pleased with her surgery results. She reported she was struggling to lose weight. Patient was eager to return to swimming. Today, the patient reports some low back pain. She states that after her surgery she had to use a wound vac for 6-8 weeks, but her incision is well healed now. She states that she continues to take gabapentin. She states she is seeing a accordion repairer. PAIN EVALUATION 07/03/2022 0939 Pain Level: 3 Pain Location: Back-Lower Description: Stabbing Duration Units: Unknown Frequency: Intermittent AMBULATORY STATUS: Impaired Community Distances ANTIPLATELET OR ANTICOAGULATION STATUS: No PREVIOUS CONSERVATIVE TREATMENTS: acetaminophen, gabapentin. REVIEW OF SYSTEMS: GENERAL: No weight loss or malaise MUSCULOSKELETAL: SEE HPI NEURO: No history of headaches, syncope, paralysis, seizures or tremors MEDICATIONS: celecoxib (CELEBREX) 200 mg capsule Take by mouth q 12 HR. alendronate (FOSAMAX) 70 mg tablet Take by mouth. estradiol (ESTRACE) 0.01 % (0.1 mg/gram) vaginal cream Estrace 0.1 MG/GM as directed Vaginal 2 x weekly Active semaglutide (OZEMPIC) 0.25 mg or 0.5 mg(2 mg/1.5 mL) pen Inject subcutaneously. glucosamine sulfate (MARIELLE ORAL) Take by mouth. cholecalciferol (VITAMIN D-3) 50 mcg (2,000 unit) tablet Take 2,000 Units by mouth once daily. ascorbic acid (VITAMIN C ORAL) Take by mouth. 1000mg calcium citrate/vitamin D3 (CITRACAL + D ORAL) Take by mouth. acetaminophen (TYLENOL) 500 mg tablet Take 2 tablets by mouth every 6 hours as needed for pain. Methenamine Hippurate (HIPREX) 1 gram tablet Take 1 g by mouth twice daily. pantoprazole DR (PROTONIX) 40 mg tablet once daily. gabapentin (NEURONTIN) 400 mg capsule Take 400 mg by mouth twice daily. Taking 800mg 2x daily sulfamethoxazole/trimethoprim (BACTRIM ORAL) Take by mouth as directed. (Patient not taking: No sig reported) Patient Entered Questionnaires Spine Questions 06/27/2021 10/20/2021 07/01/2022 Pain Location: Lower back Lower back Lower back Pain Duration: - - More than 5 years Pain over last 6 months: - - At least half the days in the past 6 months Symptoms from neck/cervical spine: No No No Employment Status: - Other Other Off work 1 month or more due to back/neck pain: - No Does not apply Applied for/receive disability/WC due to low back/neck pain - No No Involved in law suit/legal claim: - - No PROMIS Score Percentiles Physical Health 06/27/2021 10/20/2021 07/01/2022 Physical Function Percentile 1 18* 18* Sleep Percentile 10 18* 27* Fatigue Percentile 8 31 14 Pain Interference Percentile 16* 18* 18* PROMIS SOCIAL ROLE SCORE 06/27/2021 10/20/2021 07/01/2022 Social Role Satisfaction Percentile 5 31 31 PROMIS Global Health Scale 06/27/2021 10/20/2021 07/01/2022 Physical Health Percentile 10 22* 7 Mental Health Percentile 13 26* 26* Percentiles provide an indication of how the patient's score ranks in relation to the general population. Higher percentile rankings indicate better function/quality of life. 50th percentile is the average of the general population and indicates half of respondents had a worse score. Depression Screening: PHQ-9 06/27/2021 10/20/2021 07/01/2022 Score 14 7 4 PHQ-9 Self-harm Question 06/27/2021 10/20/2021 07/01/2022 Thoughts that you would be better off , or of hurting yourself in some way 0 0 0 PHQ-9 Self-Harm (Item 9) response options: 0 Not at all 1 Several days 2 More than half the days 3 Nearly every day PHQ-9 Levels: 0-4 No to mild depression 5-9 Mild depression 10-14 Moderate depression 15-19 Moderately severe depression 20-27 Severe depression OBJECTIVE: PHYSICAL EXAM: BP 121/84 Pulse 70 Ht 5' 5 (1.65m) Wt 201 lb 14.4 oz (91.6kg) LMP 11/02/2004 BMI 33.60 kg/(m2). GENERAL APPEARANCE: Well nourished, well developed, and no apparent distress. NEURO PSYCH: Patient oriented to person, place, and time. Mood pleasant. Benign affect. MUSCULOSKELETAL VISUAL INSPECTION CERVICAL: WNL THORACIC: WNL LUMBAR: WNL MOTOR: 5/5 in all muscle groups. SENSORY: Normal sensory exam GAIT: Normal. REFLEXES: +2 to bilateral U/L extremities. STRAIGHT LEG TEST: Normal Good sagittal balance. NEURO TESTS: None DATA REVIEW: No additional images reviewed today ASSESSMENT/PLAN Mild low back pain. Paola Jacobo (more content not included)...[id number] Note HNO ID: [id number] Author: RT Tera(R) Service: Radiology Author Type: Technologist Type: Progress Notes Filed: 07/03/2022 9:16 AM Note Text: Radiology Service Progress Note PATIENT NAME: Paola Jacobo DATE OF SERVICE: July 03, 2022 TIME: 9:16 AM PATIENT IDENTITY VERIFICATION COMPLETED USING TWO (2) IDENTIFIERS: Name and Date of confirmed by patient verbally and Name and Date of confirmed by identification band. FALL SCREENING: Has the patient had 2 falls in the last year or 1 fall with injury or currently using an Ambulatory Assistive Device (Walker, Cane, Wheelchair, Crutches, etc.)? No PATIENT GENDER DATA: Female. status: : No status: NO. PATIENT RELEVANT IMPLANT DATA REVIEWED: Not Applicable RADIOLOGY DEPARTMENT: General X-ray: Exam(s) Completed: Spine X-Ray(s): Lumbar AP / LAT PERIPHERAL IV DATA: Not applicable SIGNED BY: RT Tera(R) July 03, 2022 9:16 [facility]05-11-2023 History of Present illness Narrative* May Richardson MD - 07/03/2022 9:45 AM EDT SPINE SURGERY ESTABLISHED This is an in-person visit. DATE OF SERVICE: 07/03/2022 DATE OF LAST VISIT: 10/24/2021 SUBJECTIVE: HPI:Paola Jacobo is a 62 year old female presenting alone. She is s/p L4-5 laminectomy and transforaminal lumbar interbody fusion, 05/22/2021. At [facility], the patient reported experiencing a mild low back ache. She stated it was nothing serious or unbearable. She denied any pain going down the legs. She stated she was very pleased with her surgery results. She reported she was struggling to lose weight. Patient was eager to return to swimming. Today, the patient reports some low back pain. She states that after her surgery she had to use a wound vac for 6-8 weeks, but her incision is well healed now. She states that she continues to take gabapentin. She states she is seeing a accordion repairer. PAIN EVALUATION 07/03/2022 0939 Pain Level: 3 Pain Location: Back-Lower Description: Stabbing Duration Units: Unknown Frequency: Intermittent AMBULATORY STATUS: Impaired Community Distances ANTIPLATELET OR ANTICOAGULATION STATUS: No PREVIOUS CONSERVATIVE TREATMENTS: acetaminophen, gabapentin. REVIEW OF SYSTEMS: GENERAL: No weight loss or malaise MUSCULOSKELETAL: SEE HPI NEURO: No history of headaches, syncope, paralysis, seizures or tremors MEDICATIONS: celecoxib (CELEBREX) 200 mg capsule Take by mouth q 12 HR. alendronate (FOSAMAX) 70 mg tablet Take by mouth. estradiol (ESTRACE) 0.01 % (0.1 mg/gram) vaginal cream Estrace 0.1 MG/GM as directed Vaginal 2 x weekly Active semaglutide (OZEMPIC) 0.25 mg or 0.5 mg(2 mg/1.5 mL) pen Inject subcutaneously. glucosamine sulfate (MARIELLE ORAL) Take by mouth. cholecalciferol (VITAMIN D-3) 50 mcg (2,000 unit) tablet Take 2,000 Units by mouth once daily. ascorbic acid (VITAMIN C ORAL) Take by mouth. 1000mg calcium citrate/vitamin D3 (CITRACAL + D ORAL) Take by mouth. acetaminophen (TYLENOL) 500 mg tablet Take 2 tablets by mouth every 6 hours as needed for pain. Methenamine Hippurate (HIPREX) 1 gram tablet Take 1 g by mouth twice daily. pantoprazole DR (PROTONIX) 40 mg tablet once daily. gabapentin (NEURONTIN) 400 mg capsule Take 400 mg by mouth twice daily. Taking 800mg 2x daily sulfamethoxazole/trimethoprim (BACTRIM ORAL) Take by mouth as directed. (Patient not taking: No sig reported) Patient Entered Questionnaires Spine Questions 06/27/2021 10/20/2021 07/01/2022 Pain Location: Lower back Lower back Lower back Pain Duration: - - More than 5 years Pain over last 6 months: - - At least half the days in the past 6 months Symptoms from neck/cervical spine: No No No Employment Status: - Other Other Off work 1 month or more due to back/neck pain: - No Does not apply Applied for/receive disability/WC due to low back/neck pain - No No Involved in law suit/legal claim: - - No PROMIS Score Percentiles Physical Health 06/27/2021 10/20/2021 07/01/2022 Physical Function Percentile 1 18* 18* Sleep Percentile 10 18* 27* Fatigue Percentile 8 31 14 Pain Interference Percentile 16* 18* 18* PROMIS SOCIAL ROLE SCORE 06/27/2021 10/20/2021 07/01/2022 Social Role Satisfaction Percentile 5 31 31 PROMIS Global Health Scale 06/27/2021 10/20/2021 07/01/2022 Physical Health Percentile 10 22* 7 Mental Health Percentile 13 26* 26* Percentiles provide an indication of how the patient's score ranks in relation to the general population. Higher percentile rankings indicate better function/quality of life. 50th percentile is the average of the general population and indicates half of respondents had a worse score. Depression Screening: PHQ-9 06/27/2021 10/20/2021 07/01/2022 Score 14 7 4 PHQ-9 Self-harm Question 06/27/2021 10/20/2021 07/01/2022 Thoughts that you would be better off , or of hurting yourself in some way 0 0 0 PHQ-9 Self-Harm (Item 9) response options: 0 Not at all 1 Several days 2 More than half the days 3 Nearly every day PHQ-9 Levels: 0-4 No to mild depression 5-9 Mild depression 10-14 Moderate depression 15-19 Moderately severe depression 20-27 Severe depression OBJECTIVE: PHYSICAL EXAM: BP 121/84 Pulse 70 Ht 5' 5 (1.65m) Wt 201 lb 14.4 oz (91.6kg) LMP 11/02/2004 BMI 33.60 kg/(m^2). GENERAL APPEARANCE: Well nourished, well developed, and no apparent distress. NEURO PSYCH: Patient oriented to person, place, and time. Mood pleasant. Benign affect. MUSCULOSKELETAL VISUAL INSPECTION CERVICAL: WNL THORACIC: WNL LUMBAR: WNL MOTOR: 5/5 in all muscle groups. SENSORY: Normal sensory exam GAIT: Normal. REFLEXES: +2 to bilateral U/L extremities. STRAIGHT LEG TEST: Normal Good sagittal balance. NEURO TESTS: None DATA REVIEW: No additional images reviewed today ASSESSMENT/PLAN Mild low back pain. Paola Jacobo will continue with medical management of his/her condition. 1. No Orders Entered Today 2. Follow up: PRN I spent a total of 12 minutes on the date of the service which included preparing to see the patient, [id number] patient care, completing clinical documentation, obtaining and/or reviewing separately obtained history, performing a medically appropriate examination, and counseling and educating the patient/family/caregiver. Scribe Attestation: By signing my name below, Guerline Irwin, attest that this documentation has been prepared under the direction and in the presence of Dr. May Richardson.Electronically Signed: Deshawn Richey. July 03, 2022 Provider Attestation: May Irwin MD, personally performed the services described in this documentation. All medical record entries made by the scribe were at my direction and in my presence. I have reviewed the chartand discharge instructions (if applicable) and agree that the record reflects my personal performance and is accurate and complete. I spent a total of 10 minutes on the date of the service which included preparing to see the patient, [id number] patient care, completing clinical documentation, performing a medically appropriate examination, counseling and educating the patient/family/caregiver, and ordering medications, tests,or procedures Electronically Signed: May Richardson MD July 03, 2022 12:32 PM documented [facility] History of Present illness Narrative* RT Tera(R) - 07/03/2022 9:00 AM EDT Radiology Service Progress Note PATIENT NAME: Paola Jacobo DATE OF SERVICE: July 03, 2022 TIME: 9:16 AM PATIENT IDENTITY VERIFICATION COMPLETED USING TWO (2) IDENTIFIERS: Name and Date of confirmedby patient verbally and Name and Date of confirmed by identification band. FALL SCREENING: Has the patient had 2 falls in the last year or 1 fall with injury or currently using an Ambulatory Assistive Device (Walker, Cane, Wheelchair, Crutches, etc.)? No PATIENT GENDER DATA: Female. status: : No status: NO. PATIENT RELEVANT IMPLANT DATA REVIEWED: Not Applicable RADIOLOGY DEPARTMENT: General X-ray: Exam(s) Completed: Spine X-Ray(s): Lumbar AP / LAT PERIPHERAL IV DATA: Not applicable SIGNED BY: RT Tera(R) July 03, 2022 9:16 AM documented in this encounterPar[facility]04-27-2023 Evaluation note* Encounter Date Diagnosis Assessment Notes Treatment Notes Treatment Clinical Notes May, Mixed hyperlipidemia (ICD-10 - E78.2) May, Obesity (BMI 30.0-34.9) (ICD-10 - E66.9) May, Knee osteoarthritis (ICD-10 - M17.9) May, Low back derangement syndrome (ICD-10 - M53.86) May, Depression, unspecified depression type (ICD-10 - F32.9) May, GERD (gastroesophageal reflux disease) (ICD-10 - K21.9) [facility] Other 02-24-2023 NotePROCEDURE: XR FOOT LT MIN 3 VIEWS HISTORY: Pain COMPARISON: XR foot left 03/11/2022 FINDINGS: BONES:Anterior calcaneal osteotomy and wedge placement. Medial midfoot fusion and fusion of first tarsal-metatarsal joint with wedge placement. Fusion of the second third tarsal-metatarsal joints via lag screws. SOFT TISSUES:Mild/moderate soft tissue swelling. Skin starr have been removed. EFFUSION:None visible. OTHER: Negative. IMPRESSION: Stable surgical changes without evidence of hardware failure or change in alignment. Electronically authenticated by: ION SPRING Date: 2022-04-18 12:40[facility]01-18-2023 NotePROCEDURE: XR FOOT LT MIN 3 VIEWS COMPARISON: 02/10/2022 HISTORY: Pain FINDINGS: BONES:Stable postsurgical changes with fusion the first tarsometatarsal joint with a dorsal plate and screws. Fusion of the second and third tarsal metatarsal joints with cannulated screws. Anterior calcaneal osteotomy and wedged spacer placement. Lucency in the distal tibia, bone graft harvesting. No acute fracture, dislocation or mechanical failure. Contour deformity fifth metatarsal, remote injury. SOFT TISSUES:Soft tissue swelling. Surgical skin starr. EFFUSION:None visible. OTHER: Negative. IMPRESSION: Stable postsurgical changes Electronically authenticated by: CHANNING BELTRAN Date: 2022-03-12 06:55[facility]01-10-2023 Evaluation note* Encounter Date Diagnosis Assessment Notes Treatment Notes Treatment Clinical Notes Feb, Knee osteoarthritis (ICD-10 - M17.9) Feb, Hypercholesterolemia (ICD-10 - E78.00) Feb, Obesity (ICD-10 - E66.9) Feb, Low back derangement syndrome (ICD-10 - M53.86) Feb, Depression, unspecif ied depression type (ICD-10 - F32.9) Feb, GERD (gastroesophage al reflux disease) (ICD-10 - K21.9) [facility] Other 12-22-2022 Evaluation note* Encounter Date Diagnosis Assessment Notes Treatment Notes Treatment Clinical Notes Jan, BMI 35.0-35.9,adult (ICD-10 - Z68.35) [facility] Other 12-20-2022 NotePROCEDURE: XR ANKLE LT MIN 3 V, XR FOOT LT MIN 3 VIEWS HISTORY: Pain COMPARISON: XR foot left 02/10/2022 intraoperative images. FINDINGS: BONES:Anterior calcaneal osteotomy and wedge placement. Dorsal plate fusion of the medial midfoot and first metatarsophalangeal joint along with fixation of the second third tarsal-metatarsal joints. Bone harvesting from distal tibia. Old, healed fracture of distal fifth metatarsal. SOFT TISSUES:Soft tissue swelling and small amount of subcutaneous air as expected following surgery. EFFUSION:None visible. OTHER: Negative. IMPRESSION: 1. Stable surgical changes without evidence of hardware failure or change in alignment compared to intraoperative images. Electronically authenticated by: ION SPRING Date: 2022-02-10 23:52[facility]12-20-2022 NotePROCEDURE: XR ANKLE LT MIN 3 V, XR FOOT LT MIN 3 VIEWS HISTORY: Pain COMPARISON: XR foot left 02/10/2022 intraoperative images. FINDINGS: BONES:Anterior calcaneal osteotomy and wedge placement. Dorsal plate fusion of the medial midfoot and first metatarsophalangeal joint along with fixation of the second third tarsal-metatarsal joints. Bone harvesting from distal tibia. Old, healed fracture of distal fifth metatarsal. SOFT TISSUES:Soft tissue swelling and small amount of subcutaneous air as expected following surgery. EFFUSION:None visible. OTHER: Negative. IMPRESSION: 1. Stable surgical changes without evidence of hardware failure or change in alignment compared to intraoperative images. Electronically authenticated by: ION SPRING Date: 2022-02-10 23:52[facility] [id number] NotePROCEDURE: XR FOOT LT 2V HISTORY: Pain ; left foot reconstruction COMPARISON: None. FINDINGS: BONES:Anterior calcaneal osteotomy with wedge placement. Wedge placement within the first tarsal-metatarsal joint and fusion of the navicular-first cuneiform-first metatarsal joints via dorsal plate and screws. Prior osteotomy and single screw repair of head of first metatarsal. Fixation of the second and third tarsal-metatarsal joints via 2 lag screws. SOFT TISSUES:Expected intraoperative findings. EFFUSION:None visible. OTHER: Negative. IMPRESSION: 1. Surgical repair/changes as detailed above. Electronically authenticated by: ION SPRING Date: 2022-02-10 23:49[facility]11-29-2022 Evaluation note* Encounter Date Diagnosis Assessment Notes Treatment Notes Treatment Clinical Notes Dec, BMI 35.0-35.9,adult (ICD-10 - Z68.35) [facility] Other 11-15-2022 Evaluation note* Encounter Date Diagnosis Assessment Notes Treatment Notes Treatment Clinical Notes Dec, Obesity (ICD-10 - E66.9) Dec, Other Summary of Visi t: (A) Importance of protein with breakfast (B) Quick meal ideas (C) Heart healthy, calorie conscious recipe ideas Other Relevant Infromation -Stays away from starches in the evening meal- is supportive of weight loss goals-Wanted recipe odeas-Doesn't feel good after protein shakes-Goes to [place] over the winter-Has trouble eating in the morning; feels nauseas if she eats-Did not used to drink coffee; started in 2006-Has noticed taste changes since starting medication-Enjoys eating fruits/vegetables Patient set the following goals: 1) add a protein with breakfast (ex: low sodium cheese, nuts, nut butter, boiled eggs) 2) try adding protein shake with coffe (can do 1/2 the protein shake in the coffee; still a good amount of protein and might not make her feel sick)3) find other exercises she can do to strength train throughout recovery from foot surgery [facility] Other 11-08-2022 Evaluation note* Encounter Date Diagnosis Assessment Notes Treatment Notes Treatment Clinical Notes Dec, BMI 35.0-35.9,adult (ICD-10 - Z68.35) Dec, Hypercholesterolemia (ICD-10 - E78.00) Dec, Knee osteoarthritis (ICD-10 - M17.9) Dec, Low back derangement syndrome (ICD-10 - M53.86) Dec, Depression, unspecif ied depression type (ICD-10 - F32.9) Dec, GERD (gastroesophage al reflux disease) (ICD-10 - K21.9) [facility] Other 11-01-2022 Evaluation note* Encounter Date Diagnosis Assessment Notes Treatment Notes Treatment Clinical Notes Dec, BMI 35.0-35.9,adult (ICD-10 - Z68.35) [facility] Other 09-27-2022 Evaluation note* Encounter Date Diagnosis Assessment Notes Treatment Notes Treatment Clinical Notes Oct, BMI 35.0-35.9,adult (ICD-10 - Z68.35) Oct, Hypercholesterolemia (ICD-10 - E78.00) Oct, Knee osteoarthritis (ICD-10 - M17.9) Oct, Low back derangement syndrome (ICD-10 - M53.86) Oct, Depression, unspecif ied depression type (ICD-10 - F32.9) Oct, GERD (gastroesophage al reflux disease) (ICD-10 - K21.9) [facility] Other 09-06-2022 Evaluation note* Encounter Date Diagnosis Assessment Notes Treatment Notes Treatment Clinical Notes Oct, Obesity, unspecified classification, unspecified obesity type, unspecified whether serious comorbidity present (ICD-10 - E66.9) Oct, BMI 35.0-35.9,adult (ICD-10 - Z68.35) Oct, Other Summary of Visi t: (A) Presentation of Plate Method discussed (B) Sample meal ideas reviewed (C) exercise recommendations reviewed Patient set the following goals: - patient set personal goal using given handout. [facility] Other 09-01-2022 NoteHNO ID: [id number] Author: Guerline Ward Service: ? Author Type: ? Type: Progress Notes Filed: 10/24/2021 2:50 PM Note Text: SPINE SURGERY FOLLOW UP SERVICE DATE: 10/24/2021 SURGERY DATE: 05/22/2021 Paola Jacobo is a 61 year old female who presents 6 months s/p L4-5 laminectomy and transforaminal lumbar interbody fusion. At [facility], the patient reported she was doing great. Today, the patient reports experiencing a mild low back ache. She states is nothing serious or unbearable. She denies any pain going down the legs. She states she is very pleased with her surgery result. She reports she is struggling to lose weight. Patient is eager to return to swimming. PAIN EVALUATION 10/24/2021 0931 Pain Level: 2 Pain Location: Back-Lower Description: Aching Duration Units: Unknown Frequency: Intermittent Intervention/Comfort measure: Medication ANTIPLATELET OR ANTICOAGULATION STATUS: No Patient Entered Questionnaires Spine Questions 05/31/2021 06/27/2021 10/20/2021 Pain Location: Lower back Lower back Lower back Pain Duration: - - - Pain over last 6 months: - - - Symptoms from neck/cervical spine: No No No Employment Status: - - Other Off work 1 month or more due to back/neck pain: - - No Applied for/receive disability/WC due to low back/neck pain - - No Involved in law suit/legal claim: - - - PROMIS Score Percentiles Physical Health 05/31/2021 06/27/2021 10/20/2021 Physical Function Percentile 0 1 18* Sleep Percentile 3 10 18* Fatigue Percentile 1 8 31 Pain Interference Percentile 1 16* 18* PROMIS SOCIAL ROLE SCORE 05/31/2021 06/27/2021 10/20/2021 Social Role Satisfaction Percentile 1 5 31 PROMIS Global Health Scale 04/02/2021 06/27/2021 10/20/2021 Physical Health Percentile 7 10 22* Mental Health Percentile 3 13 26* Percentiles provide an indication of how the patient's score ranks in relation to the general population. Higher percentile rankings indicate better function/quality of life. 50th percentile is the average of the general population and indicates half of respondents had a worse score. Depression Screening: PHQ-9 05/31/2021 06/27/2021 10/20/2021 Score 14 14 7 PHQ-9 Self-harm Question 05/31/2021 06/27/2021 10/20/2021 Thoughts that you would be better off , or of hurting yourself in some way 0 0 0 PHQ-9 Self-Harm (Item 9) response options: 0 Not at all 1 Several days 2 More than half the days 3 Nearly every day PHQ-9 Levels: 0-4 No to mild depression 5-9 Mild depression 10-14 Moderate depression 15-19 Moderately severe depression 20-27 Severe depression PHYSICAL EXAM: BP 133/79 Pulse 74 Ht 165.1 cm (5' 5 ) Wt 97.7 kg (215 lb 6.4 oz) LMP 11/02/2004 BMI 35.84 kg/m? GENERAL APPEARANCE: Well nourished, well developed, and no apparent distress. NEURO PSYCH: Patient oriented to person, place, and time. Mood pleasant. Benign affect. MUSCULOSKELETAL VISUAL INSPECTION: incision well healed CERVICAL: WNL THORACIC: WNL LUMBAR: WNL MOTOR: 5/5 in all muscle groups. SENSORY: Normal sensory exam GAIT: Normal. REFLEXES: +2 to bilateral U/L extremities. STRAIGHT LEG TEST: Normal Good sagittal balance. NEURO TESTS: None DATA REVIEW No additional images reviewed today ASSESSMENT/PLAN 6 months s/p L4-5 laminectomy and transforaminal lumbar interbody fusion. Paola Jacobo will continue with medical management of his/her condition. No Orders Entered Today Patient was advise to slowly transition back into physical activity such as swimming. X Ray ordered and to be reviewed at 1 year post surgery. Patient can continue to wear brace. Follow up: Six months I spent a total of 15 minutes on the date of the service which included preparing to see the patient, [id number] patient care, completing clinical documentation, obtaining and/or reviewing separately obtained history, performing a medically appropriate examination, and counseling and educating the patient/family/caregiver. Scribe Attestation: By signing my name below, IGuerline, attest that this documentation has been prepared under the direction and in the presence of Dr. May Richardson.Electronically Signed: Deshawn Richey. October 24, 2021 7:28 AM Provider Attestation:I, Dr. May Richardson, personally performed the services described in this documentation. All medical record entries made by the scribe were at my direction and in my presence. I have reviewed the chart and discharge instructions (if applicable) and agree that the record reflects my personal performance and is accurate and complete. Electronically Signed: Dr. May Richardson. October 24, 2021 7:28 AM SIGNATURE: May Richardson MD PATIENT NAME: Paola Jacobo DATE: October 24, 2021 TIME: 7:27 AM [id number] History of Present illness Narrative* Guerline Ward - 10/24/2021 9:00 AM EDT SPINE SURGERY FOLLOW UP SERVICE DATE: 10/24/2021 SURGERY DATE: 05/22/2021 Paola Jacobo is a 61 year old female who presents 6 months s/p L4-5 laminectomy and transforaminal lumbar interbody fusion. At [facility], the patient reported she was doing great. Today, the patient reports experiencing a mild low back ache. She states is nothing serious or unbearable. She denies any pain going down the legs. She states she is very pleased with her surgery result. She reports she is struggling to lose weight. Patient is eager to return to swimming. PAIN EVALUATION 10/24/2021 0931 Pain Level: 2 Pain Location: Back-Lower Description: Aching Duration Units: Unknown Frequency: Intermittent Intervention/Comfort measure: Medication ANTIPLATELET OR ANTICOAGULATION STATUS: No Patient Entered Questionnaires Spine Questions 05/31/2021 06/27/2021 10/20/2021 Pain Location: Lower back Lower back Lower back Pain Duration: - - - Pain over last 6 months: - - - Symptoms from neck/cervical spine: No No No Employment Status: - - Other Off work 1 month or more due to back/neck pain: - - No Applied for/receive disability/WC due to low back/neck pain - - No Involved in law suit/legal claim: - - - PROMIS Score Percentiles Physical Health 05/31/2021 06/27/2021 10/20/2021 Physical Function Percentile 0 1 18* Sleep Percentile 3 10 18* Fatigue Percentile 1 8 31 Pain Interference Percentile 1 16* 18* PROMIS SOCIAL ROLE SCORE 05/31/2021 06/27/2021 10/20/2021 Social Role Satisfaction Percentile 1 5 31 PROMIS Global Health Scale 04/02/2021 06/27/2021 10/20/2021 Physical Health Percentile 7 10 22* Mental Health Percentile 3 13 26* Percentiles provide an indication of how the patient's score ranks in relation to the general population. Higher percentile rankings indicate better function/quality of life. 50th percentile is the average of the general population and indicates half of respondents had a worse score. Depression Screening: PHQ-9 05/31/2021 06/27/2021 10/20/2021 Score 14 14 7 PHQ-9 Self-harm Question 05/31/2021 06/27/2021 10/20/2021 Thoughts that you would be better off , or of hurting yourself in some way 0 0 0 PHQ-9 Self-Harm (Item 9) response options: 0 Not at all 1 Several days 2 More than half the days 3 Nearly every day PHQ-9 Levels: 0-4 No to mild depression 5-9 Mild depression 10-14 Moderate depression 15-19 Moderately severe depression 20-27 Severe depression PHYSICAL EXAM: BP 133/79 Pulse 74 Ht 165.1 cm (5' 5 ) Wt 97.7 kg (215 lb 6.4 oz) LMP 11/02/2004 BMI 35.84 kg/m GENERAL APPEARANCE: Well nourished, well developed, and no apparent distress. NEURO PSYCH: Patient oriented to person, place, and time. Mood pleasant. Benign affect. MUSCULOSKELETAL VISUAL INSPECTION: incision well healed CERVICAL: WNL THORACIC: WNL LUMBAR: WNL MOTOR: 5/5 in all muscle groups. SENSORY: Normal sensory exam GAIT: Normal. REFLEXES: +2 to bilateral U/L extremities. STRAIGHT LEG TEST: Normal Good sagittal balance. NEURO TESTS: None DATA REVIEW No additional images reviewed today ASSESSMENT/PLAN 6 months s/p L4-5 laminectomy and transforaminal lumbar interbody fusion. Paola Jacobo will continue with medical management of his/her condition. No Orders Entered Today Patient was advise to slowly transition back into physical activity such as swimming. X Ray ordered and to be reviewed at 1 year post surgery. Patient can continue to wear brace. Follow up: Six months I spent a total of 15 minutes on the date of the service which included preparing to see the patient, [id number] patient care, completing clinical documentation, obtaining and/or reviewing separately obtained history, performing a medically appropriate examination, and counseling and educating the patient/family/caregiver. Scribe Attestation: By signing my name below, Guerline Irwin, attest that this documentation has been prepared under the direction and in the presence of Dr. May Richardson.Electronically Signed: Deshawn Richey. October 24, 2021 7:28 AM Provider Attestation:Dr. May Irwin, personally performed the services described in this documentation. All medical record entries made by the scribe were at my direction and in my presence. I have reviewed the chart and discharge instructions (if applicable) and agree that the record reflects my personal performance and is accurate and complete. Electronically Signed: Dr. May Richardson. October 24, 2021 7:28 AM SIGNATURE: May Richardson MD PATIENT NAME: Paola Jacobo DATE: October 24, 2021 TIME: 7:27 AM PAGER: documented in this encounterPar[facility]05-16-2022 Miscellaneous Notes* Telephone Encounter - Mary Dominguez RN - 07/08/2021 9:53 AM EDT [email or web address] message forwarded for review. documented in this encounterParma [facility]05-12-2022 Instructions* Patient Instructions* Kathy De Guzman PA-C - 07/04/2021 12:08 PM EDT OK to increase weight lifting limits by 5 pounds per week documented in this encounterParma [facility]05-12-2022 History of Present illness Narrative* Kathy De Guzman PA-C - 07/04/2021 11:30 AM EDT SPINE SURGERY FOLLOW UP SERVICE DATE: 06/28/2021 SURGERY DATE: 05/22/21 Paola Jacobo is seen for 5 week post operative follow up. She is sp L4-5 laminectomy and transforaminal lumbar interbody fusion. At 2 week follow up she had some stiffness in the back. Plan was to start PT. Today she states she is doing great. Patient Entered Questionnaires Spine Questions 05/06/2021 05/31/2021 06/27/2021 Pain Location: Lower back Lower back Lower back Pain Duration: More than 5 years - - Pain over last 6 months: Every day or nearly every day in the past 6 months - - Symptoms from neck/cervical spine: No No No Employment Status: Retired - - Off work 1 month or more due to back/neck pain: - - - Applied for/receive disability/WC due to low back/neck pain - - - Involved in law suit/legal claim: No - - PROMIS Score Percentiles Physical Health 05/06/2021 05/31/2021 06/27/2021 Physical Function Percentile 2 0 1 Sleep Percentile 16* 3 10 Fatigue Percentile 1 1 8 Pain Interference Percentile 1 1 16* PROMIS SOCIAL ROLE SCORE 05/06/2021 05/31/2021 06/27/2021 Social Role Satisfaction Percentile 1 1 5 PROMIS Global Health Scale 12/30/2019 04/02/2021 06/27/2021 Physical Health Percentile 15 7 10 Mental Health Percentile 34 3 13 Percentiles provide an indication of how the patient's score ranks in relation to the general population. Higher percentile rankings indicate better function/quality of life. 50th percentile is the average of the general population and indicates half of respondents had a worse score. Depression Screening: PHQ-9 05/06/2021 05/31/2021 06/27/2021 Score 14 14 14 PHQ-9 Self-harm Question 05/06/2021 05/31/2021 06/27/2021 Thoughts that you would be better off , or of hurting yourself in some way 0 0 0 PHQ-9 Self-Harm (Item 9) response options: 0 Not at all 1 Several days 2 More than half the days 3 Nearly every day PHQ-9 Levels: 0-4 No to mild depression 5-9 Mild depression 10-14 Moderate depression 15-19 Moderately severe depression 20-27 Severe depression PHYSICAL EXAM: LMP 11/02/2004 BP 124/81 (BP Site: Right Arm, BP Position: Sitting, BP Cuff Size: Regular Adult) Pulse 79 Temp 36.4 C (97.6 F) (Temporal) Ht 165.1 cm (5' 5 ) Wt 95.3 kg (210 lb) LMP 11/02/2004 BMI 34.95 kg/m GENERAL APPEARANCE: Well nourished, well developed, and no apparent distress. NEURO PSYCH: Patient oriented to person, place, and time. Mood pleasant. Benign affect. MUSCULOSKELETAL VISUAL INSPECTION CERVICAL: WNL THORACIC: WNL LUMBAR: incision healthy MOTOR: 5/5 in all muscle groups. SENSORY: Normal sensory exam GAIT: Normal. DATA REVIEW [facility] records independently reviewed Imaging and outside records independently reviewed Images independently reviewed with the patient ASSESSMENT/PLAN SP TLIF. Continue therapy. Paola Jacobo will continue with medical management of his/her condition. 1. Medications: Robaxin (methocarbamol) 750 mg by mouth every 8 hours as needed for spasm 2. Follow up: Three months I spent a total of 15 minutes on the date of the service which included preparing to see the patient, [id number] patient care, completing clinical documentation, obtaining and/or reviewing separately obtained history, performing a medically appropriate examination and counseling and educating the patient/family/caregiver. SIGNATURE: May Richardson MD PATIENT NAME: Paola Jacobo DATE: June 28, 2021 TIME: 3:56 PM PAGER: documented in this encounterParma [facility]04-15-2022 History of Present illness Narrative* May Richardson MD - 06/07/2021 10:53 AM EDT SPINE SURGERY FOLLOW UP SERVICE DATE: 06/07/2021 SURGERY DATE: 05/22/21 Paola Jacobo is seen for 2 week post operative follow up s/p L4-5 laminectomy and transforaminal lumbar interbody fusion on 05/22/21. She complains of some pain and stiffness in the lower back, mostly while she is sleeping. She is using a walker to get around. No leg weakness. She is ready for PT. PAIN EVALUATION 06/07/2021 1053 Pain Level: 3 Pain Location: Back-Lower Duration Units: Unknown Intervention/Comfort measure: Medication Patient Entered Questionnaires Spine Questions 04/09/2021 05/06/2021 05/31/2021 Pain Location: Lower back Lower back Lower back Pain Duration: - More than 5 years - Pain over last 6 months: - Every day or nearly every day in the past 6 months - Symptoms from neck/cervical spine: No No No Employment Status: - Retired - Off work 1 month or more due to back/neck pain: - - - Applied for/receive disability/WC due to low back/neck pain - - - Involved in law suit/legal claim: - No - PROMIS Score Percentiles Physical Health 04/02/2021 05/06/2021 05/31/2021 Physical Function Percentile 4 2 0 Sleep Percentile 27* 16* 3 Fatigue Percentile 1 1 1 Pain Interference Percentile 1 1 1 PROMIS SOCIAL ROLE SCORE 04/02/2021 05/06/2021 05/31/2021 Social Role Satisfaction Percentile 1 1 1 PROMIS Global Health Scale 12/30/2019 04/02/2021 Physical Health Percentile 15 7 Mental Health Percentile 34 3 Percentiles provide an indication of how the patient's score ranks in relation to the general population. Higher percentile rankings indicate better function/quality of life. 50th percentile is the average of the general population and indicates half of respondents had a worse score. Depression Screening: PHQ-9 04/02/2021 05/06/2021 05/31/2021 Score 10 14 14 PHQ-9 Self-harm Question 04/02/2021 05/06/2021 05/31/2021 Thoughts that you would be better off , or of hurting yourself in some way 0 0 0 PHQ-9 Self-Harm (Item 9) response options: 0 Not at all 1 Several days 2 More than half the days 3 Nearly every day PHQ-9 Levels: 0-4 No to mild depression 5-9 Mild depression 10-14 Moderate depression 15-19 Moderately severe depression 20-27 Severe depression PHYSICAL EXAM: [facility] 11/02/2004 GENERAL APPEARANCE: Well nourished, well developed, and no apparent distress. NEURO PSYCH: Patient oriented to person, place, and time. Mood pleasant. Benign affect. MUSCULOSKELETAL VISUAL INSPECTION CERVICAL: WNL THORACIC: WNL LUMBAR: WNL MOTOR: 5/5 in all muscle groups. SENSORY: Normal sensory exam GAIT: Normal. REFLEXES: +2 to bilateral U/L extremities. PROPRIOCEPTION: Normal. LONG TRACT SIGNS: No clonus. No Hoffmans. STRAIGHT LEG TEST: Ipsilateral: Negative. Contralateral: Negative. L'HERMITTES SIGN: Negative. SPURLING'S TEST: Negative. WOUND ASSESSMENT: Well approximated incision, starr removed DATA REVIEW [facility] records independently reviewed Imaging and outside records independently reviewed ASSESSMENT/PLAN Will start PT, continue with muscle relaxers Paola Jacobo will continue with medical management of his/her condition. 1. Consults: Physical Therapy 2. Follow up: 4 weeks I reviewed the information obtained and documented by the physician pediatric physical therapy assistant. I examined the patient and evaluated all available films and pertinent documents. We discussed the case and I agree withthe plans as outlined in this note. SIGNATURE: May Richardson MD PATIENT NAME: Paola Jacobo DATE: June 07, 2021 TIME: 10:54 AM PAGER: documented in this encounterParma [facility]04-13-2022 Miscellaneous Notes* Telephone Encounter - Ericka Stevens - 2021 8:23 AM EDT Call from [employer] requesting refill. Pending Prescriptions Disp Refills OXYCODONE 5 MG TABLET 28 tablet 0 Sig: Take 1 tablet by mouth every 6 hours as needed for up to 7 days. NATTY Class: C-II CATALINO: No Patient last seen 05-22-21 next appt: 06-07-21 Ericka Stevens documented in this encounterParma [facility]04-03-2022 NoteHNO ID: [id number] Author: Rebeca Nicole MD Service: General Internal Medicine Author Type: Physician Type: Progress Notes Filed: 05/26/2021 12:28 PM Note Text: PROGRESS NOTE - INTERNAL MEDICINE PATIENT NAME: Paola Jacobo SERVICE DATE: May 26, 2021 SERVICE TIME: 12:27 PM PCP: Ion Mccabe DO ADMITTING PHYSICIAN: May Richardson MD MD INTERVAL HISTORY OF PRESENT ILLNESS: Pain controlled ok . No cp/ sob no weakness REVIEW OF SYSTEMS: GENERAL: No weight loss, malaise or fevers RESPIRATORY: Negative for cough, hemoptysis, wheezing, COPD, dyspnea or shortness of breath CARDIOVASCULAR: Negative for chest pain, leg swelling, hypertension, CHF or palpitations GI: No nausea, vomiting, or diarrhea : No history of dysuria, frequency or incontinence PSYCH: Negative for sleep disturbance, mood disorder and recent psychosocial stressors. ENDOCRINE: Negative for cold or heat intolerance, polyuria, polydipsia and goiter All other reviewed and negative other than HPI. PRIOR TO ADMISSION MEDICATIONS: methocarbamol (ROBAXIN-750) 750 mg tablet, Take 1 tablet by mouth three times daily as needed., Disp: 90 tablet, Rfl: 0, 05/21/2021 at Unknown time Methenamine Hippurate (HIPREX) 1 gram tablet, Take 1 g by mouth twice daily., Disp: , Rfl: , 05/21/2021 at Unknown time sulfamethoxazole/trimethoprim (BACTRIM ORAL), Take by mouth as directed. , Disp: , Rfl: , 04/24/[address] (PROTONIX) 40 mg tablet, once daily. , Disp: , Rfl: , 05/22/2021 at 300 gabapentin (NEURONTIN) 400 mg capsule, Take 400 mg by mouth twice daily. Taking 800mg 2x daily, Disp: , Rfl: , 05/21/2021 at Unknown time [DISCONTINUED] acetaminophen (TYLENOL) 325 mg cap, Take by mouth as needed., Disp: , Rfl: , 05/21/2021 at Unknown time [DISCONTINUED] celecoxib (CELEBREX) 200 mg capsule, Take 2 capsules by mouth q 12 HR., Disp: , Rfl: , 05/14/2021 [DISCONTINUED] traMADol (ULTRAM) 50 mg tablet, Take 50 mg by mouth every 6 hours as needed., Disp: , Rfl: , 05/22/2021 at 300 [DISCONTINUED] LIBRAX, WITH CLINIDIUM, 5-2.5 mg per capsule, three times daily with meals. , Disp: , Rfl: , 05/21/2021 at Unknown time INs AND OUT SUMMARY: Intake/Output Summary (Last 24 hours) at 05/26/2021 1227 Last data filed at 05/26/2021 0039 Gross per 24 hour Intake ? Output 550 ml Net -550 ml PHYSICAL EXAM: Patient Vitals for the past 24 hrs: BP Temp Temp src Pulse Resp SpO2 05/26/21 1110 ? 18 ? 05/26/21 0815 ? 18 ? 05/26/21 0736 ? ? ? 105 ? 97 % 05/26/21 0415 (!) 100/45 37.5 ?C (99.5 ?F) Oral 89 18 (!) 86 % 05/25/21 191 109/64 36.9 ?C (98.4 ?F) Oral 84 18 97 % GENERAL: Alert, no distress, cooperative SKIN: Skin color, texture, turgor normal. No rashes or lesions. NECK: No jugulovenous distention, No carotid bruits, Carotid pulse normal contour, Supple LUNGS: Lungs clear to auscultation. Good diaphragmatic excursion. CARDIAC: Normal S1 and S2; no rubs, murmurs, or gallops ABDOMEN: Abdomen soft, non-tender. BS normal. No masses or organomegaly. EXTREMETIES: Extremities normal. No deformities, edema, clubbing or skin discoloration. NEURO: Alert, oriented X 3, Cranial nerves II-XII intact, Gait normal. Reflexes normal and symmetric. Sensation grossly intact. PULSES: 2+ radial, 2+ carotid DATA: CBC, Coags, BMP, Mg, Phos Recent Labs 05/26/21 0302 05/25/21 0445 05/24/21 0300 WBC 6.86 8.36 8.48 HB 10.4* 11.3* 10.8* HCT 32.5* 35.4* 33.8* PLT 294 288 272 NA 140 143 140 K 3.8 4.0 4.1 CHLOR 99 104 104 CO2 30 28 29 BUN 7 10 13 CREAT 0.61 0.71 0.79 GLUC 100* 92 93 CA 8.3* 8.3* 8.6 CSF AND Dilantin Liver Function, Amylase, AND Lipase IMAGING Reviewed and discussed with the patient. IN-PATIENT MEDICATIONS: Current Facility-Administered Medications Medication Dose Route Frequency - Methenamine Hippurate 1 g tab(s) (HIPREX) 1 g ORAL BID w MEALS - gabapentin 800 mg cap(s) (NEURONTIN) 800 mg ORAL BID - pantoprazole DR 40 mg tab(s) (PROTONIX) 40 mg ORAL DAILY (6 AM) - methocarbamol 750 mg tab(s) (ROBAXIN) 750 mg ORAL TID PRN - ondansetron 4 mg tab(s) (ZOFRAN) 4 mg ORAL q 6 H PRN Or - ondansetron (PF) 4 mg injection (ZOFRAN) 4 mg INTRAVENOUS q 6 H PRN - NaCl 0.9% iv flush bag 20 mL INTRAVENOUS PRN - sodium chloride 0.9 % (flush) 3-5 mL (BD POSIFLUSH) 3-5 mL INTRAVENOUS q 12 H - bisacodyl 10 mg suppository (DULCOLAX) 10 mg RECTAL DAILY PRN - senna-docusate 8.6-50 mg 1 tablet (SENNA-S) 1 tablet ORAL BID PRN - diphenhydrAMINE 25 mg (BENADRYL) 25 mg ORAL q 4 H PRN - polyethylene glycol 3350 17 g packet (MIRALAX, GLYCOLAX) 17 g ORAL DAILY - acetaminophen 1,000 mg tab(s) (TYLENOL) 1,000 mg ORAL q 6 H - heparin 5,000 Units injection 5,000 Units SUBCUTANEOUS q 12 H - HYDROmorphone 0.5 mg injection (DILAUDID) 0.5 mg INTRAVENOUS q 3 H PRN - oxyCODONE IR 5-10 mg tab(s) (ROXICODONE) 5-10 mg ORAL q 3 H PRN - docusate sodium 100 mg cap(s) (COLACE) 100 mg (more content not included)... [facility] [id number] NoteHNO ID: [id number] Author: Genna Gonzales APRN.CNP Service: Neurosurgery Author Type: Nurse Practitioner Type: Plan of Care Filed: 05/26/2021 10:43 AM Note Text: SERVICE DATE: 05/26/2021 SERVICE TIME: 1040 Patient was discharged yesterday, but kept due to constipation. Given Fleet enema and soap suds enema with good effect. Abdominal exam is benign. OK to discharge patient today. Discussed with medicine team. OBJECTIVE: BP (!) 100/45 Pulse 105 Temp 37.5 ?C (99.5 ?F) (Oral) Resp 18 Ht 165.1 cm (5' 5 ) Wt 86.2 kg (190 lb) LMP 11/02/2004 SpO2 97% BMI 31.62 kg/m? General appearance: Alert, no distress HEENT: Normocephalic. Mucous membranes pink and moist Neck: Supple, no JVD Respiratory: Normal effort, maintaining patent airway, CTABL, no adventitious sounds Cardiovascular: RRR, Normal S1, S2. No m/r/g. Gastrointestinal: Soft, nontender, nondistended and normal bowel sounds Musculoskeletal: VILLELA X 4 with normal strength. No deformities. No peripheral edema. Skin: Warm, dry Neuro: Awake alert and normally oriented SIGNATURE: Genna Gonzales APRN.CNP PATIENT NAME: Paola Jacobo DATE: May 26, 2021 TIME: 10:41 [facility]04-02-2022 NoteHNO ID: [id number] Author: OSMEL Bruner Service: Care Management Author Type: Maintenance Plumber Type: Care Mgt Progress Note Filed: 05/25/2021 1:59 PM Note Text: CARE MANAGEMENT DISCHARGE NOTE SERVICE DATE: 05/25/2021 SERVICE TIME: 1:58 PM LOS: 0 days Admission Date: 05/22/2021 DISCHARGE ARRANGEMENT (list agency and phone number) Discharge Arrangement: Home with Self Care Provider Name: n/a Phone: n/a CAREGIVER ASSESSMENT: Caregiver is ready, willing and able to meet the patient's needs as recommended by the inter-professional team:: Yes Does the patient have an acute stroke diagnosis, or has the patient had a stroke during this admission?: No Patient's transition needs and plan for meeting these needs: Patient to return home with assistance from Spouse. HANDOFF COMMUNICATION: Handoff to: Primary Care Physician Primary Care Physician Name/Phone: Dr. Ion Mccabe/[phone] TRANSPORTATION ARRANGEMENTS: Transportation Arrangements: Car ADDITIONAL CONTACT RESOURCES: Monday June 07, 2021 11:00 AM Post Op with May Richardson MD Neurosurgery ([facility]) [id number] [address] [facility] [id number] If imaging was performed at facilities other than [facility], such as MRIs, X-rays or CT scans, please upload those images to the secure [facility] website prior to the scheduled appointment. If you are unable to upload the images, please hand carry the CDs to the appointment. The website link is [email or web address] Patient cleared for discharge home on 05/25/2021. Patient to follow up with Providers as directed. SIGNATURE: OSMEL Bruner PATIENT NAME: Paola Jacobo DATE: May 25, 2021 TIME: 1:58 PM PAGER/CONTACT #: [phone] NoteHNO ID: [id number] Author: Rebeca Nicole MD Service: General Internal Medicine Author Type: Physician Type: Progress Notes Filed: 05/25/2021 12:08 PM Note Text: PROGRESS NOTE - INTERNAL MEDICINE PATIENT NAME: Paola Jacobo SERVICE DATE: May 25, 2021 SERVICE TIME: 12:07 PM PCP: Ion Mccabe DO ADMITTING PHYSICIAN: May Richardson MD MD INTERVAL HISTORY OF PRESENT ILLNESS: No new c/o constipation REVIEW OF SYSTEMS: GENERAL: No weight loss, malaise or fevers RESPIRATORY: Negative for cough, hemoptysis, wheezing, COPD, dyspnea or shortness of breath CARDIOVASCULAR: Negative for chest pain, leg swelling, hypertension, CHF or palpitations GI: No nausea, vomiting, or diarrhea : No history of dysuria, frequency or incontinence PSYCH: Negative for sleep disturbance, mood disorder and recent psychosocial stressors. ENDOCRINE: Negative for cold or heat intolerance, polyuria, polydipsia and goiter All other reviewed and negative other than HPI. PRIOR TO ADMISSION MEDICATIONS: methocarbamol (ROBAXIN-750) 750 mg tablet, Take 1 tablet by mouth three times daily as needed., Disp: 90 tablet, Rfl: 0, 05/21/2021 at Unknown time Methenamine Hippurate (HIPREX) 1 gram tablet, Take 1 g by mouth twice daily., Disp: , Rfl: , 05/21/2021 at Unknown time sulfamethoxazole/trimethoprim (BACTRIM ORAL), Take by mouth as directed. , Disp: , Rfl: , 04/24/[address] (PROTONIX) 40 mg tablet, once daily. , Disp: , Rfl: , 05/22/2021 at 300 gabapentin (NEURONTIN) 400 mg capsule, Take 400 mg by mouth twice daily. Taking 800mg 2x daily, Disp: , Rfl: , 05/21/2021 at Unknown time [DISCONTINUED] acetaminophen (TYLENOL) 325 mg cap, Take by mouth as needed., Disp: , Rfl: , 05/21/2021 at Unknown time [DISCONTINUED] celecoxib (CELEBREX) 200 mg capsule, Take 2 capsules by mouth q 12 HR., Disp: , Rfl: , 05/14/2021 [DISCONTINUED] traMADol (ULTRAM) 50 mg tablet, Take 50 mg by mouth every 6 hours as needed., Disp: , Rfl: , 05/22/2021 at 300 [DISCONTINUED] LIBRAX, WITH CLINIDIUM, 5-2.5 mg per capsule, three times daily with meals. , Disp: , Rfl: , 05/21/2021 at Unknown time INs AND OUT SUMMARY: Intake/Output Summary (Last 24 hours) at 05/25/2021 1207 Last data filed at 05/25/2021 0745 Gross per 24 hour Intake 400 ml Output 70 ml Net 330 ml PHYSICAL EXAM: Patient Vitals for the past 24 hrs: BP Temp Temp src Pulse Resp SpO2 05/25/21 0759 95/52 37.3 ?C (99.1 ?F) Oral 98 16 95 % 05/25/21 0604 ? 18 ? 05/25/21 0507 128/71 36.7 ?C (98.1 ?F) Oral 92 18 97 % 05/25/21 0327 ? 16 ? 05/24/21 2347 ? 17 ? 05/24/21 2106 ? ? ? 96 ? 95 % 05/24/21 2104 (!) 90/43 ? Oral 92 16 92 % 05/24/21 2102 ? 16 ? 05/24/21 1253 121/65 36.9 ?C (98.5 ?F) Oral 84 18 96 % GENERAL: Alert, no distress, cooperative SKIN: Skin color, texture, turgor normal. No rashes or lesions. NECK: No jugulovenous distention, No carotid bruits, Carotid pulse normal contour, Supple LUNGS: Lungs clear to auscultation. Good diaphragmatic excursion. CARDIAC: Normal S1 and S2; no rubs, murmurs, or gallops ABDOMEN: Abdomen soft, non-tender. BS normal. No masses or organomegaly. EXTREMETIES: Extremities normal. No deformities, edema, clubbing or skin discoloration. NEURO: Alert, oriented X 3, Cranial nerves II-XII intact, Gait normal. Reflexes normal and symmetric. Sensation grossly intact. PULSES: 2+ radial, 2+ carotid DATA: CBC, Coags, BMP, Mg, Phos Recent Labs 05/25/21 0445 05/24/21 0300 WBC 8.36 8.48 HB 11.3* 10.8* HCT 35.4* 33.8* PLT 288 272 NA 143 140 K 4.0 4.1 CHLOR 104 104 CO2 28 29 BUN 10 13 CREAT 0.71 0.79 GLUC 92 93 CA 8.3* 8.6 CSF AND Dilantin Liver Function, Amylase, AND Lipase IMAGING Reviewed and discussed with the patient. IN-PATIENT MEDICATIONS: Current Facility-Administered Medications Medication Dose Route Frequency - Methenamine Hippurate 1 g tab(s) (HIPREX) 1 g ORAL BID w MEALS - gabapentin 800 mg cap(s) (NEURONTIN) 800 mg ORAL BID - pantoprazole DR 40 mg tab(s) (PROTONIX) 40 mg ORAL DAILY (6 AM) - methocarbamol 750 mg tab(s) (ROBAXIN) 750 mg ORAL TID PRN - ondansetron 4 mg tab(s) (ZOFRAN) 4 mg ORAL q 6 H PRN Or - ondansetron (PF) 4 mg injection (ZOFRAN) 4 mg INTRAVENOUS q 6 H PRN - NaCl 0.9% iv flush bag 20 mL INTRAVENOUS PRN - sodium chloride 0.9 % (flush) 3-5 mL (BD POSIFLUSH) 3-5 mL INTRAVENOUS q 12 H - bisacodyl 10 mg suppository (DULCOLAX) 10 mg RECTAL DAILY PRN - senna-docusate 8.6-50 mg 1 tablet (SENNA-S) 1 tablet ORAL BID PRN - diphenhydrAMINE 25 mg (BENADRYL) 25 mg ORAL q 4 H PRN - polyethylene glycol 3350 17 g packet (MIRALAX, GLYCOLAX) 17 g ORAL DAILY - acetaminophen 1,000 mg tab(s) (TYLENOL) 1,000 mg ORAL q 6 H - heparin 5,000 Units injection 5,000 Units SUBCUTANEOUS q 12 H - HYDROmorphone 0.5 mg injection (DILAUDID) 0.5 mg INTRAVENOUS q 3 H PRN - oxyCODONE IR 5-10 mg tab(s) (ROXICODONE) 5-10 mg ORA (more content not included)...[facility] [id number] NoteHNO ID: [id number] Author: Rebeca Nicole MD Service: General Internal Medicine Author Type: Physician Type: Progress Notes Filed: 05/24/2021 3:04 PM Note Text: PROGRESS NOTE - INTERNAL MEDICINE PATIENT NAME: Paola Jacobo SERVICE DATE: May 24, 2021 SERVICE TIME: 3:03 PM PCP: Ion Mccabe DO ADMITTING PHYSICIAN: May Richardson MD MD INTERVAL HISTORY OF PRESENT ILLNESS: Pt seen felt ok . Pain 06/02 ,no cp/ sob no weakness REVIEW OF SYSTEMS: GENERAL: No weight loss, malaise or fevers RESPIRATORY: Negative for cough, hemoptysis, wheezing, COPD, dyspnea or shortness of breath CARDIOVASCULAR: Negative for chest pain, leg swelling, hypertension, CHF or palpitations GI: No nausea, vomiting, or diarrhea : No history of dysuria, frequency or incontinence PSYCH: Negative for sleep disturbance, mood disorder and recent psychosocial stressors. ENDOCRINE: Negative for cold or heat intolerance, polyuria, polydipsia and goiter All other reviewed and negative other than HPI. PRIOR TO ADMISSION MEDICATIONS: methocarbamol (ROBAXIN-750) 750 mg tablet, Take 1 tablet by mouth three times daily as needed., Disp: 90 tablet, Rfl: 0, 05/21/2021 at Unknown time Methenamine Hippurate (HIPREX) 1 gram tablet, Take 1 g by mouth twice daily., Disp: , Rfl: , 05/21/2021 at Unknown time sulfamethoxazole/trimethoprim (BACTRIM ORAL), Take by mouth as directed. , Disp: , Rfl: , 04/24/[address] (PROTONIX) 40 mg tablet, once daily. , Disp: , Rfl: , 05/22/2021 at 300 gabapentin (NEURONTIN) 400 mg capsule, Take 400 mg by mouth twice daily. Taking 800mg 2x daily, Disp: , Rfl: , 05/21/2021 at Unknown time [DISCONTINUED] acetaminophen (TYLENOL) 325 mg cap, Take by mouth as needed., Disp: , Rfl: , 05/21/2021 at Unknown time [DISCONTINUED] celecoxib (CELEBREX) 200 mg capsule, Take 2 capsules by mouth q 12 HR., Disp: , Rfl: , 05/14/2021 [DISCONTINUED] traMADol (ULTRAM) 50 mg tablet, Take 50 mg by mouth every 6 hours as needed., Disp: , Rfl: , 05/22/2021 at 300 [DISCONTINUED] LIBRAX, WITH CLINIDIUM, 5-2.5 mg per capsule, three times daily with meals. , Disp: , Rfl: , 05/21/2021 at Unknown time INs AND OUT SUMMARY: Intake/Output Summary (Last 24 hours) at 05/24/2021 1503 Last data filed at 05/24/2021 1439 Gross per 24 hour Intake 720 ml Output 1498 ml Net -778 ml PHYSICAL EXAM: Patient Vitals for the past 24 hrs: BP Temp Temp src Pulse Resp SpO2 05/24/21 1253 121/65 36.9 ?C (98.5 ?F) Oral 84 18 96 % 05/24/21 0534 ? 36.8 ?C (98.3 ?F) Oral ? ? ? 05/24/21 0251 113/63 37.2 ?C (99 ?F) Oral 89 16 97 % 05/23/21 2009 117/65 36.8 ?C (98.2 ?F) Oral 82 18 96 % 05/23/21 1540 ? 17 ? 05/23/21 1533 115/64 36.8 ?C (98.2 ?F) Oral 79 18 98 % GENERAL: Alert, no distress, cooperative SKIN: Skin color, texture, turgor normal. No rashes or lesions. NECK: No jugulovenous distention, No carotid bruits, Carotid pulse normal contour, Supple LUNGS: Lungs clear to auscultation. Good diaphragmatic excursion. CARDIAC: Normal S1 and S2; no rubs, murmurs, or gallops ABDOMEN: Abdomen soft, non-tender. BS normal. No masses or organomegaly. EXTREMETIES: Extremities normal. No deformities, edema, clubbing or skin discoloration. NEURO: Alert, oriented X 3, Cranial nerves II-XII intact, Gait normal. Reflexes normal and symmetric. Sensation grossly intact. PULSES: 2+ radial, 2+ carotid DATA: CBC, Coags, BMP, Mg, Phos Recent Labs 05/24/21 0300 WBC 8.48 HB 10.8* HCT 33.8* PLT 272 NA 140 K 4.1 CHLOR 104 CO2 29 BUN 13 CREAT 0.79 GLUC 93 CA 8.6 CSF AND Dilantin Liver Function, Amylase, AND Lipase IMAGING Reviewed and discussed with the patient. IN-PATIENT MEDICATIONS: Current Facility-Administered Medications Medication Dose Route Frequency - Methenamine Hippurate 1 g tab(s) (HIPREX) 1 g ORAL BID w MEALS - gabapentin 800 mg cap(s) (NEURONTIN) 800 mg ORAL BID - pantoprazole DR 40 mg tab(s) (PROTONIX) 40 mg ORAL DAILY (6 AM) - methocarbamol 750 mg tab(s) (ROBAXIN) 750 mg ORAL TID PRN - ondansetron 4 mg tab(s) (ZOFRAN) 4 mg ORAL q 6 H PRN Or - ondansetron (PF) 4 mg injection (ZOFRAN) 4 mg INTRAVENOUS q 6 H PRN - NaCl 0.9% iv flush bag 20 mL INTRAVENOUS PRN - sodium chloride 0.9 % (flush) 3-5 mL (BD POSIFLUSH) 3-5 mL INTRAVENOUS q 12 H - bisacodyl 10 mg suppository (DULCOLAX) 10 mg RECTAL DAILY PRN - senna-docusate 8.6-50 mg 1 tablet (SENNA-S) 1 tablet ORAL BID PRN - diphenhydrAMINE 25 mg (BENADRYL) 25 mg ORAL q 4 H PRN - polyethylene glycol 3350 17 g packet (MIRALAX, GLYCOLAX) 17 g ORAL DAILY - acetaminophen 1,000 mg tab(s) (TYLENOL) 1,000 mg ORAL q 6 H - heparin 5,000 Units injection 5,000 Units SUBCUTANEOUS q 12 H - HYDROmorphone 0.5 mg injection (DILAUDID) 0.5 mg INTRAVENOUS q 3 H PRN - oxyCODONE IR 5-10 mg tab(s) (ROXICODONE) 5-10 mg ORAL q 3 H PRN - docusate sodium 100 mg cap(s) (COLACE) 100 mg ORAL BID PROBLEM LIST: ACTIVE P (more content not included)...[facility] [id number] NoteHNO ID: [id number] Author: Amelie Blanco APRN.ELECTION ASSISTANT Service: Neurosurgery Author Type: Nurse Practitioner Type: Progress Notes Filed: 05/24/2021 12:00 PM Note Text: NEUROSURGERY POST OP PROGRESS NOTE SERVICE DATE: 05/24/21 SERVICE TIME: 11:59 AM POST OP DAY: # 2 SUBJECTIVE Seated up in chair this morning. 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 3-4/10 at rest. Much improved from pain she was experiencing prior to surgery. The preoperative symptoms of bilateral buttocks radiculopathy and right leg numbness are resolved. She is concerned about going home and not being able to manage her pain with oral medication. She denies CP, dyspnea, abd pain, nausea, vomiting. OBJECTIVE PHYSICAL EXAM: BP 113/63 Pulse 89 Temp 36.8 ?C (98.3 ?F) (Oral) Resp 16 Ht 165.1 cm (5' 5 ) Wt 86.2 kg (190 lb) LMP 11/02/2004 SpO2 97% BMI 31.62 kg/m? Body mass index is 31.62 kg/m?. GENERAL: No acute distress, cooperative NEURO: Alert and oriented x3. Spontaneous MOEx4. 5/5 strength BL lower extremity- hip adduction/ abduction, knee flexion/ extension, dorsi/ plantar flexion. HEAD/SINUSES: No significant findings. LUNGS: Lungs clear to auscultation. RA. No respiratory distress or accessory muscle use. CARDIAC:Regular rate and rhythm, no murmurs, clicks, gallops to ausculation. ABDOMEN: Abdomen soft, non-tender. BS normal. EXTREMITIES: Extremities normal, No obvious deformities or edema VASCULAR: +2 radial and DP pulses, equal bilaterally. GI/: Tolerating diet. Voids independently Incision: edges well approximated with starr, drsg with shadowing. Drain: output is 370cc/24hhrs (80 out overnight), serosanguinous. Most recent labs and imaging results.. Current Facility-Administered Medications Medication Dose Route Frequency - Methenamine Hippurate 1 g tab(s) (HIPREX) 1 g ORAL BID w MEALS - gabapentin 800 mg cap(s) (NEURONTIN) 800 mg ORAL BID - pantoprazole DR 40 mg tab(s) (PROTONIX) 40 mg ORAL DAILY (6 AM) - methocarbamol 750 mg tab(s) (ROBAXIN) 750 mg ORAL TID PRN - ondansetron 4 mg tab(s) (ZOFRAN) 4 mg ORAL q 6 H PRN Or - ondansetron (PF) 4 mg injection (ZOFRAN) 4 mg INTRAVENOUS q 6 H PRN - NaCl 0.9% iv flush bag 20 mL INTRAVENOUS PRN - sodium chloride 0.9 % (flush) 3-5 mL (BD POSIFLUSH) 3-5 mL INTRAVENOUS q 12 H - bisacodyl 10 mg suppository (DULCOLAX) 10 mg RECTAL DAILY PRN - senna-docusate 8.6-50 mg 1 tablet (SENNA-S) 1 tablet ORAL BID PRN - diphenhydrAMINE 25 mg (BENADRYL) 25 mg ORAL q 4 H PRN - polyethylene glycol 3350 17 g packet (MIRALAX, GLYCOLAX) 17 g ORAL DAILY - acetaminophen 1,000 mg tab(s) (TYLENOL) 1,000 mg ORAL q 6 H - heparin 5,000 Units injection 5,000 Units SUBCUTANEOUS q 12 H - HYDROmorphone 0.5 mg injection (DILAUDID) 0.5 mg INTRAVENOUS q 3 H PRN - oxyCODONE IR 5-10 mg tab(s) (ROXICODONE) 5-10 mg ORAL q 3 H PRN - docusate sodium 100 mg cap(s) (COLACE) 100 mg ORAL BID ASSESSMENT AND PLAN Patient Active Hospital Problem List: S/P lumbar fusion (05/23/2021) S/P lumbar spinal fusion (05/23/2021) Medication and Non-Pharmacologic VTE Prophylaxis/Anticoagulants Anticoagulant AND Antiplatelet Medications (From admission, onward) Start Dose Route Frequency Last Action Ordered Stop 05/24/21 0900 heparin 5,000 Units injection 5,000 Units SUBCUTANEOUS EVERY 12 HOURS Given, 05/24 0733 05/23/21 0917 -- 05/22/212114 vte pharmacologic prophylaxis contraindicated (nc,la) 05/22/212114 pneumatic compression stockings (nc,la) 05/22/212114 activity - mobilize patient (nc,la) VTE Prophylaxis: VTE prophylaxis appropriate, continue Bernardo Verduzco. Paola Jacobo is a 60 year old status post L4-5 laminectomy and TLIF. Recommend increasing activity, physical therapy , occupational therapy, discharge planning and pain control. 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 Received 4 doses of toradol, pain better controlled today. - PT cleared for dc home. OT eval is pending. - Voiding w/o issues, +flatus - CHENCHO with 80 out overnight, 370 x24h. Will remove this afternoon is <80 ccs out this morning. Patient can be cleared for dc today if CHENCHO drain is dc'ed; however, she discussed that she is concerned about pain control. Eval to dc today vs tomorrow pending pain control and CHENCHO removal. Will send dc prescriptions to pharmacy for bedside delivery. Virtual rounds completed with Dr Richardson via phone. SIGNATURE: Amelie Blanco APRN.PENELOPE PATIENT NAME: Paola Jacobo DATE: 05/24/21 TIME: 11:54 AM ETX#[id number] Miscellaneous Notes* Plan of Care - Emely Bonilla PA-C - 05/24/2021 11:00 AM EDT Bone Stim ordered Successfully [facility] Miscellaneous Notes* Patient Education - Emely Bonilla PA-C - 05/24/2021 10:57 AM EDT Opened in error documented in [facility] NoteHNO ID: [id number] Author: Amelie Blanco APRN.ELECTION ASSISTANT Service: Neurosurgery Author Type: Nurse Practitioner Type: Progress Notes Filed: 05/23/2021 9:19 AM Note Text: NEUROSURGERY POST OP PROGRESS NOTE SERVICE DATE: 05/23/2021 SERVICE TIME: 9:13 AM POST OP DAY: # 1 SUBJECTIVE Patient states that the preoperative symptoms of bilateral buttocks radiculopathy and right leg numbness are improved. 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 She is amenable to changing to oral pain medicine today. She was OOB this morning in chair, tolerated well. She denies CP, dyspnea, abd pain, nausea, vomiting. Not on oxygen [employer] and no prior smoking history. OBJECTIVE PHYSICAL EXAM: Patient Vitals for the past 24 hrs: BP Temp Temp src Pulse Resp SpO2 Height Weight 05/23/21 0850 ? 18 100 % ? ? 05/23/21 0814 134/89 36.8 ?C (98.2 ?F) Oral 88 17 ? ? ? 05/23/21 0524 ? 16 100 % ? ? 05/23/21 0439 130/78 36.6 ?C (97.9 ?F) Oral 85 18 98 % ? ? 05/23/21 0210 ? 18 97 % ? ? 05/23/21 0041 ? 86.2 kg (190 lb) 05/23/21 0025 123/68 36.7 ?C (98.1 ?F) Oral 85 18 96 % ? ? 05/22/219 ? 165.1 cm (5' 5 ) 86.2 kg (190 lb) 05/22/212129 130/62 36.7 ?C (98.1 ?F) Oral 87 16 96 % ? ? 05/22/21 2100 120/62 ? ? 89 18 95 % ? ? 05/22/212055 145/72 ? ? 92 ? 100 % ? ? 05/22/212044 162/98 ? ? 93 ? 100 % ? ? 05/22/212029 154/92 ? ? 96 18 100 % ? ? 05/22/212009 157/100 36.2 ?C (97.2 ?F) Temporal 95 ? 100 % ? ? Body mass index is 31.62 kg/m?. GENERAL: No acute distress, cooperative NEURO: Alert and oriented x3. Spontaneous MOEx4. 5/5 strength BL lower extremity- hip adduction/ abduction, knee flexion/ extension, dorsi/ plantar flexion. HEAD/SINUSES: No significant findings. LUNGS: Lungs clear to auscultation. 2L NC. No respiratory distress or accessory muscle use. CARDIAC:Regular rate and rhythm, no murmurs, clicks, gallops to ausculation. ABDOMEN: Abdomen soft, non-tender. BS normal. EXTREMITIES: Extremities normal, No obvious deformities or edema VASCULAR: +2 radial and DP pulses, equal bilaterally. GI/: Tolerating diet. FC to SD-- to dc today. Incision: edges well approximated with starr, drsg with shadowing. Drain: output is 210cc/24hhrs, serosanguinous. Most recent labs and imaging results.. Current Facility-Administered Medications Medication Dose Route Frequency - Methenamine Hippurate 1 g tab(s) (HIPREX) 1 g ORAL BID w MEALS - gabapentin 800 mg cap(s) (NEURONTIN) 800 mg ORAL BID - pantoprazole DR 40 mg tab(s) (PROTONIX) 40 mg ORAL DAILY (6 AM) - methocarbamol 750 mg tab(s) (ROBAXIN) 750 mg ORAL TID PRN - NaCl 0.9% iv infusion 75 mL/hr INTRAVENOUS CONTINUOUS - ondansetron 4 mg tab(s) (ZOFRAN) 4 mg ORAL q 6 H PRN Or - ondansetron (PF) 4 mg injection (ZOFRAN) 4 mg INTRAVENOUS q 6 H PRN - NaCl 0.9% iv flush bag 20 mL INTRAVENOUS PRN - sodium chloride 0.9 % (flush) 3-5 mL (BD POSIFLUSH) 3-5 mL INTRAVENOUS q 12 H - bisacodyl 10 mg suppository (DULCOLAX) 10 mg RECTAL DAILY PRN - senna-docusate 8.6-50 mg 1 tablet (SENNA-S) 1 tablet ORAL BID PRN - diphenhydrAMINE 25 mg (BENADRYL) 25 mg ORAL q 4 H PRN - polyethylene glycol 3350 17 g packet (MIRALAX, GLYCOLAX) 17 g ORAL DAILY - oxyCODONE IR 5-10 mg tab(s) (ROXICODONE) 5-10 mg ORAL q 4 H PRN - HYDROmorphone 0.5 mg injection (DILAUDID) 0.5 mg INTRAVENOUS q 3 H PRN - acetaminophen 1,000 mg tab(s) (TYLENOL) 1,000 mg ORAL q 6 H ASSESSMENT AND PLAN Patient Active Hospital Problem List: S/P lumbar fusion (05/23/2021) Medication and Non-Pharmacologic VTE Prophylaxis/Anticoagulants 05/22/212114 vte pharmacologic prophylaxis contraindicated (nc,la) 05/22/212114 pneumatic compression stockings ([place]) 05/22/212114 activity - mobilize patient ([place]) VTE Prophylaxis: VTE prophylaxis appropriate, continue Bernardo Verduzco. Paola Jacobo is a 60 year old status post L4-5 laminectomy and TLIF. Recommend increasing activity, physical therapy , occupational therapy, discharge planning and pain control. 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 - PT eval pending, needs stair training. - FC to dc today, voiding trial. - CHENCHO to stay another day. - Wean NC oxygen and encourage pulm hygiene. Anticipate discharge in 1 day pending progress with PT, pain control, and drain removal. Will discuss with Dr Richardson via phone. SIGNATURE: Amelie Blanco APRN.PENELOPE PATIENT NAME: Paola Jacobo DATE: May 23, 2021 TIME: 9:13 AM ETX#[id number] [facility] Medical [id number] NoteHNO ID: [id number] Author: SERGEY Webber Service: ? Author Type: No Bake Molder Type: Anesthesia Procedure Notes Filed: 05/22/2021 3:41 PM Note Text: ANESTHESIOLOGY PROCEDURE NOTE Airway General Information Procedure Start Time/Medication Administration: 05/22/2021 3:08 PM Procedure End Time: 05/22/2021 3:08 PM Patient location during procedure: OR Timeout Performed Pre-procedure: timeout performed Consent Obtained: Yes Patient identity confirmed: arm band and patient Staffing Anesthesiologist: Franc Easton II, DO CAA: SERGEY Webber Performed by: AMITA Indications and Patient Condition Preoxygenated: yes Patient position: sniffing Manual In-Line Stabilization: Yes Difficult Mask: No Indications for airway management: anesthesia anesthesia circuit Method: asleep Cricoid Pressure: Yes Final Airway Details Final airway type: endotracheal airway Final Endotracheal Airway: ETT Cuffed: yes Successful intubation technique: direct laryngoscopy Endotracheal tube insertion site: oral Blade: Sophie Blade size: #4 ETT size (mm): 7.0 Measured from: lips Measurement (cm): 22 Placement verified by: chest auscultation and capnometry Cormack-Lehane Classification: grade IIb - view of arytenoids or posterior of glottis only Number of attempts at approach: 1 Failed airway: no Unrecognized esophageal intubation: no Airway not difficult Medications Administered Lidocaine topical gel 2% urojet (XYLOCAINE, GLYDO), 2 mL SIGNATURE: SERGEY Webber PATIENT NAME: Paola Jacobo DATE: May 22, 2021 TIME: 3:40 PM CSN: [id number] Evaluation note* Encounter Date Diagnosis Assessment Notes Treatment Notes Treatment Clinical Notes Jan, Lumbar and sacral osteoarthritis (ICD-10 - M47.817) We will continue to monitor her axial back pain symptoms. Jan, Lumbar back pain (ICD-10 - M54.50) Patient voices minimal complaints of low lumbar and gluteal pain. She attributes this to a recent right sacaroiliac joint injection. We will continue to monitor and proceed with future treatment as needed. Patient will follow up with us as needed. Anatomy of spine discussed in detail with patient in regards to patients condition. Overall, patient is doing well and in agreement with our treatment plan. Jan, Other chronic pain (ICD-10 - G89.29) Jan, Hip pain (ICD-10 - M25.559) Jan, Other Above note written by Torsten Chisholm MA, Account Representative. Edited and approved by Dr. Bairon Garcia MD. [facility] Other 11-17-2021 Evaluation note* Encounter Date Diagnosis Assessment Notes Treatment Notes Treatment Clinical Notes Dec, Lumbar and sacral osteoarthritis (ICD-10 - M47.817) We will continue to monitor her axial back pain symptoms. Dec, Lumbar back pain (ICD-10 - M54.50) Patient's main complaint is her right sided low back/gluteal pain. Patient has failed several conservative treatment options. She previously benefitted from a right sacroiliac joint injection for an extended period of time. Based on these results and returning pain symptoms, patient is a candidate for a repeat right sacroiliac joint injection which we will proceed with. Risks and benefits of procedure explained to patient; patient verbalizes understanding. Anatomy of spine discussed in detail with patient in regards to patients condition. Dec, Other chronic pain (ICD-10 - G89.29) Dec, Hip pain (ICD-10 - M25.559) Dec, Other Above note writ ten by Michaela Rojas CMA, Account Representative. Edited and approved by Dr. Bairon Garcia MD. [facility] Other 01-20-2020 History general Narrative - Reported* Type Description Date Medical History IBS Medical History Arthritis Surgical History bilateral knee replacement Surgical History bilateral shoulder surgery Surgical History right arm surgery Surgical History SHOULDER ARTHROSCOPIC 03/14/2019 Hospitalization History see above [facility] Other 06-20-2011 History of Past illness Narrative* Problem Noted Date Resolved Date [facility] arthritis, thumb, degenerative 08/12/2010 08/12/2010 documented as of this encounter (statuses as of 05/24/2021) [facility] Narrative* Problem Noted Date Resolved Date [facility] arthritis, thumb, degenerative 08/12/2010 08/12/2010 documented as of this encounter (statuses as of 2021) [facility] Narrative* Problem Noted Date Resolved Date [facility] arthritis, thumb, degenerative 08/12/2010 08/12/2010 documented as of this encounter (statuses as of 06/07/2021) [facility] Narrative* Problem Noted Date Resolved Date [facility] arthritis, thumb, degenerative 08/12/2010 08/12/2010 documented as of this encounter (statuses as of 07/04/2021) [facility] Narrative* Problem Noted Date Resolved Date [facility] arthritis, thumb, degenerative 08/12/2010 08/12/2010 documented as of this encounter (statuses as of 07/09/2021) [facility] Narrative* Problem Noted Date Resolved Date [facility] arthritis, thumb, degenerative 08/12/2010 08/12/2010 documented as of this encounter (statuses as of 10/24/2021) [facility] Narrative* Problem Noted Date Resolved Date [facility] arthritis, thumb, degenerative 08/12/2010 08/12/2010 documented as of this encounter (statuses as of 07/03/2022) [facility] Narrative* Problem Noted Date Resolved Date [facility] arthritis, thumb, degenerative 08/12/2010 08/12/2010 documented as of this encounter (statuses as of 07/04/2022) [facility] note* Diagnosis Spondylolisthesis at L4-L5 level- Primary Post-operative state Other postprocedural status documented in this encounter [facility] note* Diagnosis Spondylolisthesis at L4-L5 level- Primary Post-operative state Other postprocedural status documented in this encounter [facility] note* Diagnosis S/P lumbar fusion Arthrodesis status documented in this encounter [facility] note* Diagnosis Spinal stenosis, lumbar region, with neurogenic claudication- Primary documented in this encounter [facility] note* Diagnosis Spinal stenosis, lumbar region, with neurogenic claudication- Primary documented in this encounter [facility] noteNo [facility] Other Evaluation note* Diagnosis Spinal stenosis of lumbar region with neurogenic claudication- Primary Spinal stenosis, lumbar region, with neurogenic claudication documented in this encounter [facility] note* Diagnosis Spinal stenosis, lumbar region with neurogenic claudication- Primary documented in this encounter [facility] note* Diagnosis Spinal stenosis of lumbar region with neurogenic claudication Spinal stenosis, lumbar region, with neurogenic claudication documented in this encounter [facility] general Narrative - Reported* Type Description Date Medical History IBS Medical History Arthritis Medical History depression Medical History back pain Medical History Osteoarthritis Surgical History bilateral knee replacement Surgical History bilateral shoulder surgery Surgical History right arm surgery Surgical History SHOULDER ARTHROSCOPIC 03/14/2019 Surgical History back surgery 04/2021 Surgical History hysterectomy 2007 Surgical History bunionectomy, bilateral Hospitalization History see above [facility] Other [facility] general Narrative - Reported* Type Description Date Medical History IBS Medical History Arthritis Medical History depression Medical History back pain Medical History Osteoarthritis Medical History left foot surgery Surgical History bilateral knee replacement Surgical History bilateral shoulder surgery Surgical History right arm surgery Surgical History SHOULDER ARTHROSCOPIC 03/14/2019 Surgical History back surgery 04/2021 Surgical History hysterectomy 2007 Surgical History bunionectomy, bilateral Surgical History Left foot surgery Hospitalization History see above [facility] Other History general Narrative - Reported* Type Description Date Medical History IBS Medical History Arthritis Medical History depression Medical History back pain Medical History Osteoarthritis Medical History left foot surgery Surgical History bilateral knee replacement Surgical History bilateral shoulder surgery Surgical History right arm surgery Surgical History SHOULDER ARTHROSCOPIC 03/14/2019 Surgical History back surgery 04/2021 Surgical History hysterectomy 2007 Surgical History bunionectomy, bilateral Surgical History Left foot surgery Surgical History left foot surgery, hardware rem bev 09/2022 Hospitalization History see above [facility] Other Reason for referral (narrative)* Diagnostic Procedure Only (Routine) - Pending Review Specialty Diagnoses / Procedures Referred By Contantonio t Referred To Contact XR IMAGING Diagnoses Spinal stenosis of lumbar region with neurogenic claudication Procedures XR LUMBAR LIMITED 2V AP/LAT RADEX SPINE LUMBOSACRAL 2/[place] [id number] [address] [place] [address] Xr Imaging Referral ID Status Reason Start Date Expiration Date Visits Requested Visits Authorized [id number] Pending Review Auto-Generat ed Referral 10/24/2021 11/23/2022 1 1 [facility] for referral (narrative)* Diagnostic Procedure Only (Routine) - Closed Specialty Diagnoses / Procedures Referred By Nick t Referred To Contact XR IMAGING Diagnoses Spinal stenosis of lumbar region with neurogenic claudication Procedures XR LUMBAR LIMITED 2V AP/LAT RADEX SPINE LUMBOSACRAL 2/[place] [id number] [address] [id number] [place] [address] Xr Imaging Referral ID Status Reason Start Date Expiration Date V isits Requested Visits Authorized [id number] Closed Auto-Generate d Referral 10/24/2021 11/23/2022 1 1 [facility] for visit Narrative* Diagnostic Procedure Only (Routine) - Closed Specialty Diagnoses / Procedures Referred By Contac t Referred To Contact XR IMAGING Diagnoses Spinal stenosis of lumbar region with neurogenic claudication Procedures XR LUMBAR LIMITED 2V AP/LAT RADEX SPINE LUMBOSACRAL 2/3 [place] [address] [id number] [place] [address] Xr Imaging Referral ID Status Reason Start Date Expiration Date V isits Requested Visits Authorized [id number] Closed Auto-Generate d Referral 10/24/2021 11/23/2022 1 1 [facility] Summary Purpose Family History No Family History Records FoundNo Family History Records FoundNo Family History Records FoundNo Family History Records FoundNo Family History Records FoundNo Family History Records Found Advance Directives No Advanced Directives Records FoundDocuments on File Type Date Recorded 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 Advance Directive(s) 05/22/2021 8:44 AM Advance Directive(s) 05/22/2021 8:46 AM Advance Directive(s) 05/15/2021 9:43 AM Advance Directive(s) 01/06/2020 9:56 AM Advance Directive(s) 01/31/2019 5:49 PM Documents on File Type Date Recorded 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 Author Type: Anesthesiologist Type: Anesthesia Procedure Notes Filed: 01/09/2020 7:28 AM Note Text: ANESTHESIOLOGY PROCEDURE NOTE Peripheral Nerve Block General Information Procedure Start Time/Medication Administration: 01/09/2020 7:16 AM Procedure End time: 01/09/2020 7:27 AM Patient location during procedure: pre-op Timeout Performed Pre- procedure: timeout performed Consent Obtained: Yes Patient identity confirmed: arm band Reason for block: post-op pain management/at surgeon's request Staffing Anesthesiologist: J Carlos Jade Performed by: anesthesiologist Preparation Sterility Preparation: hand hygiene performed prior to procedure, surgical cap used, mask used, sterile drape used during line insertion, skin prep agent completely dried prior to procedure Site Prep: Chloraprep Pre-Procedure Neuro Exam Location: RUE Sensory: intact Motor: intact Procedure Details Patient Position: sitting Monitoring: Pulse OX, EKG and NIBP Block T (more content not included)... Note HNO ID: [id number] Author: Kayla mancera ([place]) Lucy Service: ? 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 Type: Anesthesia Procedure Notes Filed: 01/09/2020 8:08 AM Note Text: ANESTHESIOLOGY PROCEDURE NOTE Airway General Information Patient location during procedure: OR Staffing Performed by: TENNILLE Indications and Patient Condition Preoxygenated: yes Patient position: sniffing Difficult Mask: No Indications for airway management: anesthesia anesthesia circuit Method: asleep Final Airway Details Final airway type: supraglottic airway Number of attempts at approach: 1 Final Supraglottic Airway: IGEL Size 4 Airway not difficult SIGNATURE: Angelica Ayala APRN.[place] PATIENT NAME: Paola Jacobo DATE: January 09, 2020 TIME: 8:07 AM CSN: [id number] Reason for Referral Specialty Diagnoses / Procedures Referred By Contac t Referred To Contact [facility] Diagnoses Spinal stenosis, lumbar region, with neurogenic claudication Procedures CONSULT TO PHYSICAL THERAPY PHYSICAL THERAPY EVALUATION HIGH COMPLEX 45 MINS Vishal Berger PA-C [address] [place] [address] [facility] [address] [place] [address] [place] [address] Referral ID Status Reason Start Date Expiration Date Visits Requested Visits Authorized [id number] Pending Review Auto-Generat ed Referral 06/07/2021 06/07/2022 1 1 Additional Source Comments INFORMATION SOURCE (unrecogn ized section and content) DATE CREATED AUTHOR 01/09/2020 [facility] DATE CREATED AUTHOR AUTHOR'S ORGANIZ ATION 05/29/2021 [facility] DATE CREATED AUTHOR AUTHOR'S ORGANIZ ATION 07/05/2022 [facility] DATE CREATED AUTHOR AUTHOR'S ORGANIZ ATION 08/01/2022 [facility] DATE CREATED AUTHOR AUTHOR'S ORGANIZ ATION 12/10/[address] [facility] DATE CREATED AUTHOR AUTHOR'S ORGANIZ ATION 02/21/2023 [facility] Source Comments (unrecognize d section and content) In the event this informatio n is protected by the Federal Confidentiality of Alcohol and Drug Abuse Patient Records regulations: The Federal rules restrict any use of the information to criminally investigate or prosecute any alcohol or drug abuse patient.[facility] the event this information is protected by the Federal Confidentiality of Alcohol and Drug Abuse Patient Records regulations: The Federal rules restrict any use of the information to criminally investigate or prosecute any alcohol or drug abuse patient.[facility] the event this information is protected by the Federal Confidentiality of Alcohol and Drug Abuse Patient Records regulations: The Federal rules restrict any use of the information to criminally investigate or prosecute any alcohol or drug abuse patient.[facility] the event this information is protected by the Federal Confidentiality of Alcohol and Drug Abuse Patient Records regulations: The Federal rules restrict any use of the information to criminally investigate or prosecute any alcohol or drug abuse patient.[facility] the event this information is protected by the Federal Confidentiality of Alcohol and Drug Abuse Patient Records regulations: The Federal rules restrict any use of the information to criminally investigate or prosecute any alcohol or drug abuse patient.[facility] the event this information is protected by the Federal Confidentiality of Alcohol and Drug Abuse Patient Records regulations: The Federal rules restrict any use of the information to criminally investigate or prosecute any alcohol or drug abuse patient.[facility] the event this information is protected by the Federal Confidentiality of Alcohol and Drug Abuse Patient Records regulations: The Federal rules restrict any use of the information to criminally investigate or prosecute any alcohol or drug abuse patient.[facility] the event this information is protected by the Federal Confidentiality of Alcohol and Drug Abuse Patient Records regulations: The Federal rules restrict any use of the information to criminally investigate or prosecute any alcohol or drug abuse patient.[facility] the event this information is protected by the Federal Confidentiality of Alcohol and Drug Abuse Patient Records regulations: The Federal rules restrict any use of the information to criminally investigate or prosecute any alcohol or drug abuse patient.[facility] Care Teams (unrecognized sec tion and content) Cash Processor Relationship Specialty Start Date End Date Ion Mccabe [address] [place] [id number] PCP - General 06/05/03 Cash Processor Relationship Specialty Start Date End Date Ion Mccabe [address] [place] [address] PCP - General 06/05/03 Cash Processor Relationship Specialty Start Date End Date Ion Mccabe [address] [place] [address] PCP - General 06/05/03 Cash Processor Relationship Specialty Start Date End Date Ion Mccabe Jeremias [address] [place] [address] PCP - General 06/05/03 Cash Processor Relationship Specialty Start Date End Date Ion Mccabe [address] [place], [place] PCP - General 06/05/03 Cash Processor Relationship Specialty Start Date End Date Ion Mccabe [address] [place] [address] PCP - General 06/05/03 Cash Processor Relationship Specialty Start Date End Date Ion Mccabe [address] [place] [facility] [address] PCP - General 06/05/03 Cash Processor Relationship Specialty Start Date End Date Ion Mccabe [address] [place] [address] PCP - General 06/05/03 Reason for Visit (unrecogniz ed section and content) Reason Onset Date Comments Refill Request 2021 Reason Comments Post Op Spinal stenosis Reason Comments Post Op Sx: 05/22/2021 Reason Comments Established Patient Spinal stenosis, lum bar region, with neurogenic claudication Reason Comments Follow Up Spinal stenosis FOR RECORDS PERTAINING TO PATIENTS WHO ARE OR HAVE BEEN ENROLLED IN A CHEMICAL DEPENDENCY/SUBSTANCEABUSE PROGRAM, SOME INFORMATION MAY BE OMITTED. This clinical summary was aggregated from multiple sources. Caution should be exercised in using it in the provision of clinical care. This summary normalizes information from multiple sources, and as a consequence, information in this document may materially change the coding, format and clinical context of patient data. In addition, data may be omitted in some cases. CLINICAL DECISIONS SHOULD BE BASED ON THE PRIMARY CLINICAL RECORDS. [facility] [employer] provides no warranty or guarantee of the accuracy or completeness of information in this document.
== END 2023-03-04 11:06 | disposition home or self-care (01) ==
LOC: RAD 11:05
PROVIDERS: PCP Family Medicine; Visit Provider Podiatrist Foot & Ankle Surgery
DX: T81.30XD Disruption of wound, unspecified, subsequent encounter (principal)
CPT/HCPCS: 73630